=== PATIENT | female | born 1995 | race Caucasian/White ===

== ENCOUNTER 2017-10-16 23:47 | Emergency (ER) | payer OTHER ==
[2017-10-17] MEDS ORDERED: ONDANSETRON 4 MG/2 ML VIAL IVP STA (00:12)
[2017-10-17] MEDS ORDERED: MORPHINE 10 MG/ML VIAL IVP STA (00:12)
--- NOTE | 2017-10-17 00:21 | ED Physician Documentation ---
PD HPI ABD PAIN - Stated complaint Stated Complaint: ABDOMINAL PAIN - Chief complaint Chief Complaint: Abd Pain - History obtained from History obtained from: Patient, Friend - History of Present Illness Timing - onset: Today Timing - details: Gradual onset, Still present Quality: Cramping, Aching, Sharp Location: RLQ Worsened by: Position, Palpation Associated symptoms: Nausea. No: Fever, Vomiting, Diarrhea, Constipation, Vaginal bleeding, Vaginal dc Similar symptoms before: Work up / diagnostics, Treatment Recently seen: Not recently seen - Additional information Additional information: Patient is a 22 year old female with a history of ovarian cysts who is presenting to the emergency department for right lower quadrant pain. patient states that it started this morning and has become progressively worse throughout the day. Patient states that she has been nauseated and not eaten anything all day. Review of Systems Constitutional: denies: Fever, Chills Eyes: reports: Reviewed and negative Ears: reports: Reviewed and negative Nose: reports: Reviewed and negative Throat: reports: Reviewed and negative Cardiac: denies: Chest pain / pressure, Palpitations Respiratory: denies: Cough GI: reports: Abdominal Pain, Nausea. denies: Vomiting, Constipation, Diarrhea : denies: Dysuria, Frequency, Hematuria, Discharge, Vaginal bleeding Skin: denies: Rash, Lesions Musculoskeletal: denies: Back pain Neurologic: denies: Generalized weakness, Focal weakness Immunocompromised: denies: Immunocompromised PD PAST MEDICAL HISTORY - Past Medical History Past Medical History: No Cardiovascular: None Respiratory: None Neuro: None Endocrine/Autoimmune: None GI: None HOME HEALTH CARE RESPIRATORY THERAPIST: None : None HEENT: None Psych: None Musculoskeletal: None Derm: None - Past Surgical History Past Surgical History: Yes HEENT: Tonsil/Adenoidectomy - Present Medications Home Medications: Ambulatory Orders Medication Instructions Recorded Confirmed No Known Home Medications [No 10/16/17 10/16/17 Known Home Medications] - Allergies Allergies/Adverse Reactions: Allergies Allergy/AdvReac Type Severity Reaction Status Date / Time No Known Drug Allergies Allergy Verified 10/16/17 23:52 - Social History Does the pt smoke?: No Smoking Status: Never smoker Does the pt have substance abuse?: No - Immunizations Immunizations are current?: Yes PD ED PE NORMAL - General General: Well developed/nourished - HEENT HEENT: Atraumatic, PERRL - Neck Neck: Supple, no meningeal sign, No JVD - Cardiac Cardiac: RRR, No murmur - Respiratory Respiratory: No respiratory distress - Derm Derm: Normal color, Warm and dry, No rash - Extremities Extremities: No deformity, Normal ROM s pain, No edema, No calf tenderness / cord - Neuro Neuro: Alert and oriented X 3, No motor deficit, No sensory deficit, Normal speech PD ED PE EXPANDED - General General: Alert, In Pain - Abdomen Abdomen: Tender to palpation, RLQ. No: Rebound Results - Vitals Vitals: Vital Signs - 24 hr 10/16/17 10/17/17 10/17/17 23:53 00:37 00:42 Temperature 36.7 C Heart Rate 86 85 Respiratory 18 18 Rate Blood Pressure 139/97 H 122/88 H O2 Saturation 99 99 10/17/17 01:24 Temperature 36.7 C Heart Rate 82 Respiratory 24 Rate Blood Pressure 139/93 H O2 Saturation 99 Oxygen O2 Source Room air - Labs Labs: Laboratory Tests 10/17/17 10/17/17 10/17/17 00:01 00:05 00:05 WBC 11.1 H RBC 4.06 L Hgb 13.2 Hct 37.1 MCV 91.6 MCH 32.7 H MCHC 35.7 RDW 13.0 Plt Count 352 MPV 7.6 L Neut # 6.1 Lymph # 3.8 H [place] # 1.0 Eos # 0.1 Baso # 0.1 Absolute Nucleated RBC 0.00 Nucleated RBC % 0.0 Sodium 139 Potassium 3.6 Chloride 109 Carbon Dioxide 21 Anion Gap 9.0 BUN 11 Creatinine 0.8 Estimated GFR (MDRD) 90 Glucose 95 Calcium 9.1 Total Bilirubin 0.4 AST 25 ALT 20 Alkaline Phosphatase 75 Total Protein 7.1 Albumin 4.1 Globulin 3.0 Albumin/Globulin Ratio 1.4 Lipase 24 Urine Color LT. YELLOW Urine Clarity CLEAR Urine pH 7.0 Ur Specific [place] 1.010 Urine Protein NEGATIVE Urine Glucose (UA) NEGATIVE Urine Ketones NEGATIVE Urine Occult Blood NEGATIVE Urine Nitrite NEGATIVE Urine Bilirubin NEGATIVE Urine Urobilinogen 0.2 (NORMAL) Ur Leukocyte Esterase NEGATIVE Ur Microscopic Review NOT INDICATED Urine Culture Comments NOT INDICATED Urine HCG, Qual NEGATIVE - Rads (name of study) ct abdomen/pelvis Radiology: Final report received (no acute abdominal pathology) PD MEDICAL DECISION MAKING - ED course Complexity details: reviewed old records, reviewed results, re-evaluated patient , considered differential, d/w patient ED course: Patient was seen and examined at bedside. IV access was gained and labs and urine were collected. patient was treated with morphine and zofran. Due to the risk of appendicitis and ovarian torsion imaging was ordered. When patient returned from imaging she stated she was still in pain and treated with toradol with some relief. Patient's diagnostics were within normal limits. While serious etiologies like torsion and appendicitis were considered they were unlikely with negative imaging. Patient required no further work up and was stable for discharge with outpatient follow up. Departure - Departure Disposition: 01 Home, Self Care Clinical Impression: Abdominal pain Instructions: ED Abdominal Pain Unkn Cause Follow-Up: primary,care provider [Other] - Tomorrow Comments: Your diagnostics today were within normal limits. there were no major abnormalities with your blood, urine or imaging. It is difficult to say what is causing your pain exactly but it is unlikely life threatening in nature. You can take motrin or tylenol as needed for pain. If your symptoms persist you should follow up with your pmd and possibly a tablet technician. You may return to the emergency department at any time for new, worsening or uncontrollable symptoms. Forms: Activity restrictions
[2017-10-17 00:24] LABS: BILIRUBIN,URINE NEGATIVE (NEGATIVE); GLUCOSE, URINE (UA) NEGATIVE (NEGATIVE); KETONES,URINE (UA) NEGATIVE (NEGATIVE); LEUKOCYTE ESTERASE, URINE NEGATIVE (NEGATIVE); NITRITE,URINE NEGATIVE (NEGATIVE); OCCULT BLOOD,URINE NEGATIVE (NEGATIVE); PROTEIN,URINE NEGATIVE (NEGATIVE); UROBILINOGEN,URINE 0.2 (NORMAL) E.U./dL (NORMAL)
[2017-10-17 00:25] LABS: BASOPHILS # (AUTO) 0.1 10^3/uL (0.0-0.1); BASOPHILS % (AUTO) 0.6 %; EOSINOPHILS # (AUTO) 0.1 10^3/uL (0.0-0.7); EOSINOPHILS % (AUTO) 0.9 %; HGB - HEMOGLOBIN 13.2 g/dL (12.0-16.0); LYMPHOCYTES # (AUTO) 3.8 10^3/uL (1.5-3.5); LYMPHOCYTES % (AUTO) 34.6 %; MEAN CORPUSCULAR HEMOGLOBIN 32.7 pg (27.0-31.0); MEAN CORPUSCULAR HGB CONC 35.7 g/dL (32.0-36.0); MEAN CORPUSCULAR VOLUME 91.6 fL (81.0-99.0); MEAN PLATELET VOLUME 7.6 fL (7.9-10.8); MONOCYTES % (AUTO) 9.1 %; NEUTROPHILS # (AUTO) 6.1 10^3/uL (1.5-6.6); NEUTROPHILS % (AUTO) 54.8 %; PLT - PLATELET COUNT 352 10^3/uL (130-450); RED BLOOD COUNT 4.06 10^6/uL (4.20-5.40); WHITE BLOOD COUNT 11.1 x10^3/uL (4.8-10.8)
[2017-10-17 00:27] LABS: CLARITY,URINE CLEAR (CLEAR); HCG UR QUAL NEGATIVE
[2017-10-17 00:32] LABS: ALBUMIN 4.1 g/dL (3.2-5.5); ALBUMIN/GLOBULIN RATIO 1.4 (1.0-2.2); BILIRUBIN,TOTAL 0.4 mg/dL (0.2-1.0); CALCIUM 9.1 mg/dL (8.5-10.3); CREATININE 0.8 mg/dL (0.4-1.0); TOTAL PROTEIN 7.1 g/dL (6.7-8.2)
[2017-10-17] MEDS ORDERED: IOPAMIDOL-300 100 ML VIAL ONE (01:08)
[2017-10-17] MEDS ORDERED: IOPAMIDOL-300 100 ML VIAL IVP ONE (01:22)
[2017-10-17] MEDS ORDERED: KETOROLAC 60 MG/2 ML VIAL IVP STA (01:22)
[2017-10-17 01:24] VITALS: BP 139/93
--- NOTE | 2017-10-17 01:46 | CT Preliminary Report ---
Exam: CT ABDOMEN/PELVIS W/ IMPRESSION: Normal abdomen and pelvis CT. [facility] SITE ID: [id number]
--- NOTE | 2017-10-17 01:46 | CT Report ---
EXAM: CT ABDOMEN AND PELVIS EXAM DATE: 10/17/2017 01:25 AM. CLINICAL HISTORY: Rlq pain, nausea, anorexia. COMPARISONS: None. TECHNIQUE: Routine helical CT imaging was performed through the abdomen and pelvis. IV contrast: 100M L ISOVUE 300. Enteric contrast: No. Reconstructions: Coronal and sagittal. In accordance with CT protocol optimization, one or more of the following dose reduction techniques w ere utilized for this exam: automated exposure control, adjustment of mA and/or KV based on patient s ize, or use of iterative reconstructive technique. FINDINGS: Lung Bases: Unremarkable. Liver: Normal. No masses. Gallbladder/Bile Ducts: Unremarkable. Spleen: Normal. Pancreas: Normal. Adrenal Glands: Normal. Kidneys: Normal. No masses or hydronephrosis. Peritoneal Cavity/Bowel: Normal. No free fluid, free air or adenopathy. No masses or acute inflammato ry process. The appendix is well visualized and normal. Pelvic Organs: Normal. The bladder and visualized pelvic organs are within normal limits. Vasculature: No aneurysms or other significant abnormality. Bones: No significant abnormality. Other: None. IMPRESSION: Normal abdomen and pelvis CT. [facility] Referring Provider Line: [phone] SITE ID: [id number]
[2017-10-17] MEDS ORDERED: ACETAMINOPHEN 500 MG TABLET PO STA (02:01)
== END 2017-10-17 02:11 | disposition home or self-care (01) ==
LOC: ED 23:47
DX: R10.31 Right lower quadrant pain (principal)
CPT/HCPCS: 36415; 74177; 80053; 81003; 81025; 83690; 85025; 96374; 96375; 99283; 99285; A9270; Q9967; 81001; 87086

== ENCOUNTER 2017-12-18 08:35 | Emergency (ER) | payer OTHER ==
[2017-12-18 09:57] LABS: BILIRUBIN,URINE NEGATIVE (NEGATIVE); GLUCOSE, URINE (UA) NEGATIVE (NEGATIVE); KETONES,URINE (UA) NEGATIVE (NEGATIVE); LEUKOCYTE ESTERASE, URINE NEGATIVE (NEGATIVE); NITRITE,URINE NEGATIVE (NEGATIVE); OCCULT BLOOD,URINE TRACE-INTA (NEGATIVE); PROTEIN,URINE NEGATIVE (NEGATIVE); UROBILINOGEN,URINE 0.2 (NORMAL) E.U./dL (NORMAL)
[2017-12-18 09:59] LABS: CLARITY,URINE CLEAR (CLEAR)
[2017-12-18 10:00] LABS: HCG UR QUAL NEGATIVE
[2017-12-18] MEDS ORDERED: ONDANSETRON 4 MG/2 ML VIAL IVP STA ×2 (11:08→12:22)
[2017-12-18] MEDS ORDERED: SODIUM CHLORIDE 0.9% 1,000 ML IV ONE (11:08)
[2017-12-18] MEDS ORDERED: KETOROLAC 60 MG/2 ML VIAL IVP STA (11:08)
--- NOTE | 2017-12-18 11:10 | ED Physician Documentation ---
PD HPI ABD PAIN - Stated complaint Stated Complaint: LOWER ABD PX - Chief complaint Chief Complaint: Abd Pain - History obtained from History obtained from: Patient - History of Present Illness Timing - onset: Yesterday Timing - duration: Days (1) Timing - details: Gradual onset, Still present Quality: Sharp, Pain Location: RLQ Radiation: No: Chest, Right flank Improved by: Laying still Worsened by: Moving, Position, Palpation Associated symptoms: Nausea, Loss of appetite Similar symptoms before: Diagnosis (ovarian cyst) Recently seen: Clinic - Additional information Additional information: 22-year-old female has had some pain in the right lower quadrant that started about 1 week ago was much milder then today and she went into see her SUPERVISOR DIAGNO[employer] and had an ultrasound of the pelvis done showing a follicular cyst. She had been able to eat and was performing her usual duties was not bothering her to stop her from doing anything and then yesterday the pain became much worse. She was not able to eat yesterday at all does not feel like eating today and the pain is localized to the right lower quadrant. Review of Systems Constitutional: reports: Chills. denies: Fever Eyes: denies: Decreased vision Ears: denies: Ear pain Nose: denies: Congestion Throat: denies: Sore throat Cardiac: denies: Chest pain / pressure, Palpitations Respiratory: denies: Dyspnea, Cough GI: reports: Abdominal Pain, Nausea. denies: Vomiting, Constipation, Diarrhea : denies: Dysuria, Frequency Skin: denies: Rash Musculoskeletal: denies: Neck pain, Back pain, Extremity pain Neurologic: denies: Generalized weakness, Focal weakness PD PAST MEDICAL HISTORY - Past Medical History Past Medical History: Yes Cardiovascular: None Respiratory: None Neuro: None Endocrine/Autoimmune: None GI: None SUPERVISOR DIAGNOSTIC: None : None HEENT: None Psych: None Musculoskeletal: None Derm: None - Past Surgical History Past Surgical History: Yes HEENT: Tonsil/Adenoidectomy - Present Medications Home Medications: Ambulatory Orders Medication Instructions Recorded Confirmed HYDROcod/ACETAM 5/325 [[place] 5/325] 1 - 2 ea PO Q6H PRN #15 tablet 12/18/17 Levonorgestrel-Ethin Estradiol 12/18/17 [Orsythia-28 Tablet] - Allergies Allergies/Adverse Reactions: Allergies Allergy/AdvReac Type Severity Reaction Status Date / Time No Known Drug Allergies Allergy Verified 12/18/17 08:58 - Social History Does the pt smoke?: No Smoking Status: Never smoker Does the pt have substance abuse?: No - Immunizations Immunizations are current?: Yes PD ED PE NORMAL - Vitals Vital signs reviewed: Yes (Normal) - General General: Alert and oriented X 3, Well developed/nourished, Other (The patient appears to be in pain with automatic bow maker machine tender tone and flattened affect.) - HEENT HEENT: Atraumatic, PERRL, EOMI - Neck Neck: Supple, no meningeal sign - Cardiac Cardiac: RRR, No murmur - Respiratory Respiratory: No respiratory distress, Clear bilaterally - Abdomen Abdomen: Soft, Other (Specific right lower quadrant tenderness mostly over the suprapubic portion without rebound tenderness) - Back Back: No CVA TTP, No spinal TTP - Derm Derm: Normal color, Warm and dry, No rash - Extremities Extremities: No deformity, No edema - Neuro Neuro: No motor deficit, No sensory deficit Eye Opening: Spontaneous Motor: Obeys Commands Verbal: Oriented GCS Score: 15 - Psych Psych: Normal mood, Normal affect Results - Vitals Vitals: Vital Signs - 24 hr 12/18/17 12/18/17 12/18/17 08:54 11:55 12:15 Temperature 36.7 C 36.4 C L Heart Rate 86 74 79 Respiratory 18 17 18 Rate Blood Pressure 116/79 107/68 107/84 H O2 Saturation 99 100 100 Oxygen O2 Source Room air - Labs Labs: Laboratory Tests 12/18/17 12/18/17 12/18/17 09:25 11:18 11:18 WBC 8.9 RBC 4.36 Hgb 13.9 Hct 40.1 MCV 92.0 MCH 32.0 H MCHC 34.8 RDW 13.0 Plt Count 328 MPV 7.2 L Neut # 6.5 Lymph # 1.8 [place] # 0.5 Eos # 0.1 Baso # 0.1 Absolute Nucleated RBC 0.00 Nucleated RBC % 0.0 Sodium 136 Potassium 3.8 Chloride 104 Carbon Dioxide 23 Anion Gap 9.0 BUN 9 Creatinine 0.8 Estimated GFR (MDRD) 90 Glucose 89 Calcium 9.2 Total Bilirubin 0.7 AST 28 ALT 32 Alkaline Phosphatase 47 Total Protein 7.3 Albumin 3.9 Globulin 3.4 Albumin/Globulin Ratio 1.1 Lipase 22 Urine Color YELLOW Urine Clarity CLEAR Urine pH 6.0 Ur Specific [place] 1.025 Urine Protein NEGATIVE Urine Glucose (UA) NEGATIVE Urine Ketones NEGATIVE Urine Occult Blood TRACE-INTA Urine Nitrite NEGATIVE Urine Bilirubin NEGATIVE Urine Urobilinogen 0.2 (NORMAL) Ur Leukocyte Esterase NEGATIVE Ur Microscopic Review NOT INDICATED Urine Culture Comments NOT INDICATED Urine HCG, Qual NEGATIVE - Rads (name of study) CT ab/pel Radiology: Prelim report reviewed (Impression: There are no CT findings to suggest cause of symptoms), EMP read indepedently, See rad report Ultrasound pelvis Radiology: Prelim report reviewed (Impression: Normal no torsion.), EMP read indepedently, See rad report Procedures - Bedside sono Bedside sono by EMP: These bedside ultrasound the right kidney is imaged there is no evidence of hydronephrosis and the kidney is sonographically nontender. PD MEDICAL DECISION MAKING - ED course Complexity details: reviewed results, re-evaluated patient, considered differential, d/w patient ED course: 22-year-old female with right lower quadrant pain acutely has had this pain previously and she has had prior evaluations similar to today. She required CT scan of the abdomen pelvis to rule out appendicitis and ultrasound to rule out torsion. This is a second workup here in the emergency department under similar conditions. Her [employer]PER[employer] doctor is concerned about the possibility of endometriosis and this seems the most likely explanation for this patient's pain. I will provide the patient with a limited amount of pain medication and she will follow-up with her [employer] doctor. Departure - Departure Disposition: 01 Home, Self Care Clinical Impression: Pelvic pain Condition: Stable Instructions: ED Pelvic Pain [facility] Follow-Up: [facility] [place] [facility] [Provider Group] Prescriptions: HYDROcod/ACETAM 5/325 [[place] 5/325] 1 - 2 ea PO Q6H PRN #15 tablet PRN Reason: Pain Comments: Today we did not find an etiology for your pelvic pain. I suspect as her [employer] doctor does that this may have to do with endometriosis. We have provided a small amount of pain medication. Take it as needed and follow-up with your [employer]PER[employer] doctor.
[2017-12-18 11:26] LABS: BASOPHILS # (AUTO) 0.1 10^3/uL (0.0-0.1); BASOPHILS % (AUTO) 0.7 %; EOSINOPHILS # (AUTO) 0.1 10^3/uL (0.0-0.7); EOSINOPHILS % (AUTO) 0.7 %; HGB - HEMOGLOBIN 13.9 g/dL (12.0-16.0); LYMPHOCYTES # (AUTO) 1.8 10^3/uL (1.5-3.5); LYMPHOCYTES % (AUTO) 20.3 %; MEAN CORPUSCULAR HGB CONC 34.8 g/dL (32.0-36.0); MEAN PLATELET VOLUME 7.2 fL (7.9-10.8); MONOCYTES # (AUTO) 0.5 10^3/uL (0.0-1.0); MONOCYTES % (AUTO) 5.3 %; NEUTROPHILS # (AUTO) 6.5 10^3/uL (1.5-6.6); PLT - PLATELET COUNT 328 10^3/uL (130-450); RED BLOOD COUNT 4.36 10^6/uL (4.20-5.40); WHITE BLOOD COUNT 8.9 x10^3/uL (4.8-10.8)
[2017-12-18 11:43] LABS: ALBUMIN 3.9 g/dL (3.2-5.5); ALBUMIN/GLOBULIN RATIO 1.1 (1.0-2.2); BILIRUBIN,TOTAL 0.7 mg/dL (0.2-1.0); CALCIUM 9.2 mg/dL (8.5-10.3); CREATININE 0.8 mg/dL (0.4-1.0); TOTAL PROTEIN 7.3 g/dL (6.7-8.2)
--- NOTE | 2017-12-18 11:52 | CT Report ---
EXAM: CT ABDOMEN AND PELVIS EXAM DATE: 12/18/2017 11:26 AM. CLINICAL HISTORY: RLQ pain. COMPARISONS: Abdomen pelvis CT 10/17/2017. TECHNIQUE: Routine helical CT imaging was performed through the abdomen and pelvis. IV contrast: None . Enteric contrast: No. Reconstructions: Coronal and sagittal. In accordance with CT protocol optimization, one or more of the following dose reduction techniques w ere utilized for this exam: automated exposure control, adjustment of mA and/or KV based on patient s ize, or use of iterative reconstructive technique. FINDINGS: Lung Bases: Unremarkable. Liver: Normal contour. No masses. Gallbladder/Bile Ducts: Unremarkable. Spleen: Normal. Pancreas: Normal. Adrenal Glands: Normal. Kidneys: no masses or hydronephrosis. Peritoneal Cavity/Bowel: Normal. No free fluid, free air or adenopathy. No masses or acute inflammato ry process. The appendix is well visualized and has a normal CT appearance. Pelvic Organs: the bladder and visualized pelvic organs are unremarkable. Vasculature: No aneurysms or other significant abnormality. Bones: No bone lesions. IMPRESSION: There are no CT findings to suggest a cause of symptoms [facility] Referring Provider Line: [phone] SITE ID: [id number]
[2017-12-18] MEDS ORDERED: HYDROmorphone 1 MG/ML SYRINGE IVP STA (12:22)
[2017-12-18 13:44] VITALS: BP 112/84
--- NOTE | 2017-12-19 11:34 | Ultrasound Report ---
PELVIC ULTRASOUND: 12/18/2017 CLINICAL INDICATION: Severe right-sided pain. TECHNIQUE: Transabdominal pelvic ultrasound performed for global evaluation. Transvaginal pelvic ultrasound performed for detailed evaluation. Real-time sonographic vascular imaging was performed by the instruction assistant principal through the pelvis utilizing both color-flow and Doppler spectral analysis. Multiple wholesale representative static images were saved for review. FINDINGS: The uterus is anteverted, measuring 6.8 x 4.9 x 2.9 cm. The endometrial echo complex measures 6 mm. No focal myometrial lesion is seen. The ovaries are normal, with the right measuring 2.7 x 1.9 x 1.7 cm and the left measuring 2.6 x 1.6 x 1.6 cm. Normal ovarian flow was present bilaterally. No free fluid is present. IMPRESSION: NORMAL PELVIC ULTRASOUND. TD: 12/18/2017 15:57
== END 2017-12-18 13:45 | disposition home or self-care (01) ==
LOC: ED 08:35
DX: R10.2 Pelvic and perineal pain (principal)
CPT/HCPCS: 36415; 74176; 76830; 76856; 80053; 81003; 81025; 83690; 85025; 93976; 96361; 96374; 96375; 96376; 99283; 99284; J1170; 81001; 87086

== ENCOUNTER 2017-12-25 21:46 | Emergency (ER) | payer OTHER ==
--- NOTE | 2017-12-26 00:12 | ED Physician Documentation ---
PD HPI ABD PAIN - Stated complaint Stated Complaint: LOWER RT ABD PAIN - Chief complaint Chief Complaint: Abd Pain - History obtained from History obtained from: Patient - History of Present Illness Timing - onset: How many weeks ago (2) Timing - details: Abrupt onset, Intermittant, Waxing and waning Pain level now: 6 Quality: Pain Location: Suprapubic, Other (right pelvis) Radiation: No: Chest, , Lower back, Left flank, Left shoulder, Right flank, Right shoulder, Upper back Improved by: Other (no ameliorating factors) Worsened by: Palpation Associated symptoms: No: Fever, Nausea, Vomiting Similar symptoms before: No diagnosis Recently seen: Emergency Dept - Additional information Additional information: c/o recurring right pelvic pain. moved to [place] in August. she was T+R from this ED 10/16 for same sx, unremarkable w/u including CT A/P, returned 12/18 for same, had unremarkable pelvic US. followed up at [facility], states suspected diagnosis is endometriosis and had shot of Lupron, returns to this ED for recurrent right pelvic pain. she has run out of the hydrocodone rx from [facility] visit earlier this month Review of Systems Constitutional: reports: Reviewed and negative Cardiac: reports: Reviewed and negative Respiratory: reports: Reviewed and negative GI: reports: Abdominal Pain. denies: Nausea, Vomiting : denies: Dysuria, Frequency PD PAST MEDICAL HISTORY - Past Medical History Past Medical History: Yes Cardiovascular: None Respiratory: None Neuro: None Endocrine/Autoimmune: None GI: None X RAY DEVELOPER: Endometriosis : None HEENT: None Psych: None Musculoskeletal: None Derm: None - Past Surgical History Past Surgical History: Yes HEENT: Tonsil/Adenoidectomy - Present Medications Home Medications: Ambulatory Orders Medication Instructions Recorded Confirmed HYDROcod/ACETAM 5/325 [[place] 5/325] 1 - 2 ea PO Q6H PRN #15 tablet 12/18/17 Levonorgestrel-Ethin Estradiol 12/18/17 [Orsythia-28 Tablet] Hydrocodone/Acetaminophen 1 - 2 each PO Q6HR PRN #14 tablet 12/26/17 [Hydrocodon-Acetaminophen 5-325] - Allergies Allergies/Adverse Reactions: Allergies Allergy/AdvReac Type Severity Reaction Status Date / Time No Known Drug Allergies Allergy Verified 12/25/17 22:08 - Social History Does the pt smoke?: No Smoking Status: Never smoker Does the pt have substance abuse?: No - Immunizations Immunizations are current?: Yes PD ED PE NORMAL - Vitals Vital signs reviewed: Yes - General General: Alert and oriented X 3, No acute distress, Well developed/nourished - Cardiac Cardiac: RRR, No murmur - Respiratory Respiratory: No respiratory distress, Clear bilaterally - Abdomen Abdomen: Soft, Non tender, Non distended - Back Back: No CVA TTP Results - Vitals Vitals: Oxygen O2 Source Room air PD MEDICAL DECISION MAKING - ED course Complexity details: reviewed results, re-evaluated patient, considered differential, d/w patient Departure - Departure Disposition: Home, Self Care Clinical Impression: Pelvic pain Condition: Good Instructions: ED Pelvic Pain [facility] Follow-Up: [facility] [Provider Group] (Call to arrange for next available appointment) Prescriptions: Hydrocodone/Acetaminophen [Hydrocodon-Acetaminophen 5-325] 1 - 2 each PO Q6HR PRN #14 tablet PRN Reason: Pain Discharge Date/Time: 12/26/17 01:20
[2017-12-26] MEDS ORDERED: HYDROcod/ACET 5/325 Prepack 6 PO STA (01:05)
[2017-12-26 01:29] VITALS: BP 117/78
== END 2017-12-26 01:20 | disposition home or self-care (01) ==
LOC: ED 21:46
DX: R10.2 Pelvic and perineal pain (principal)
CPT/HCPCS: 99283

== ENCOUNTER 2018-01-21 20:48 | Emergency (ER) | payer OTHER ==
[2018-01-21 21:52] LABS: BASOPHILS # (AUTO) 0.1 10^3/uL (0.0-0.1); BASOPHILS % (AUTO) 0.6 %; EOSINOPHILS # (AUTO) 0.1 10^3/uL (0.0-0.7); EOSINOPHILS % (AUTO) 0.9 %; HGB - HEMOGLOBIN 13.6 g/dL (12.0-16.0); LYMPHOCYTES # (AUTO) 3.4 10^3/uL (1.5-3.5); LYMPHOCYTES % (AUTO) 28.9 %; MEAN CORPUSCULAR HEMOGLOBIN 31.3 pg (27.0-31.0); MEAN CORPUSCULAR HGB CONC 34.3 g/dL (32.0-36.0); MEAN CORPUSCULAR VOLUME 91.3 fL (81.0-99.0); MEAN PLATELET VOLUME 6.9 fL (7.9-10.8); MONOCYTES % (AUTO) 8.2 %; NEUTROPHILS # (AUTO) 7.2 10^3/uL (1.5-6.6); NEUTROPHILS % (AUTO) 61.4 %; PLT - PLATELET COUNT 386 10^3/uL (130-450); RED BLOOD COUNT 4.34 10^6/uL (4.20-5.40); RED CELL DISTRIBUTION WIDTH 12.8 % (12.0-15.0); WHITE BLOOD COUNT 11.7 x10^3/uL (4.8-10.8)
[2018-01-21 22:07] LABS: BILIRUBIN,URINE NEGATIVE (NEGATIVE); CLARITY,URINE CLEAR (CLEAR); GLUCOSE, URINE (UA) NEGATIVE (NEGATIVE); KETONES,URINE (UA) NEGATIVE (NEGATIVE); LEUKOCYTE ESTERASE, URINE NEGATIVE (NEGATIVE); NITRITE,URINE NEGATIVE (NEGATIVE); OCCULT BLOOD,URINE NEGATIVE (NEGATIVE); PROTEIN,URINE NEGATIVE (NEGATIVE); UROBILINOGEN,URINE 0.2 (NORMAL) E.U./dL (NORMAL)
[2018-01-21 22:10] LABS: HCG UR QUAL NEGATIVE
[2018-01-21 22:11] LABS: ALBUMIN 3.9 g/dL (3.2-5.5); ALBUMIN/GLOBULIN RATIO 1.1 (1.0-2.2); BILIRUBIN,TOTAL 0.2 mg/dL (0.2-1.0); CREATININE 0.7 mg/dL (0.4-1.0); TOTAL PROTEIN 7.5 g/dL (6.7-8.2)
--- NOTE | 2018-01-22 00:15 | ED Physician Documentation ---
PD HPI ABD PAIN - Stated complaint Stated Complaint: ABD PX - Chief complaint Chief Complaint: Abd Pain - History obtained from History obtained from: Patient - History of Present Illness Timing - onset: Enter time (16:00), Today Timing - duration: Hours Timing - details: Abrupt onset Pain level now: 6 Quality: Pain Location: RLQ Radiation: No: Chest, , Lower back, Left flank, Left shoulder, Right flank, Right shoulder, Upper back Improved by: Laying still Worsened by: Moving, Palpation Associated symptoms: Nausea. No: Fever, Vomiting Recently seen: Emergency Dept - Additional information Additional information: patient complains of right lower quadrant abdominal and pelvic pain that began at 4 PM tonight while at rest at home watching TV. She has had similar pains episodically over the past few months for which she has been evaluated several times in this emergency department as well as [facility] emergency department. Despite extensive work up, no specific diagnosis has been found. She has been seen by cam maker in the outpatient setting, most recently on January 18. At that time she was given her second injection of Lupron, with a suspected diagnosis being endometriosis. Patient says that if her pain continues the plan is to proceed with laparoscopy. Patient says she has no pain medication at home at this time. Review of Systems Constitutional: reports: Reviewed and negative Cardiac: reports: Reviewed and negative Respiratory: reports: Reviewed and negative GI: reports: Abdominal Pain, Nausea. 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 : None HEENT: None Psych: None Musculoskeletal: None Derm: None - Past Surgical History Past Surgical History: Yes HEENT: Tonsil/Adenoidectomy - Present Medications Home Medications: Ambulatory Orders Medication Instructions Recorded Confirmed Levonorgestrel-Ethin Estradiol 12/18/17 [Orsythia-28 Tablet] Hydrocodone/Acetaminophen 1 - 2 each PO Q6HR PRN #14 tablet 01/22/18 [Hydrocodone-Acetamin 5-325 mg] - Allergies Allergies/Adverse Reactions: Allergies Allergy/AdvReac Type Severity Reaction Status Date / Time No Known Drug Allergies Allergy Verified 01/21/18 21:02 - Social History Does the pt smoke?: No Smoking Status: Never smoker Does the pt have substance abuse?: No - Immunizations Immunizations are current?: Yes PD ED PE NORMAL - Vitals Vital signs reviewed: Yes - General General: Alert and oriented X 3, No acute distress, Well developed/nourished - Cardiac Cardiac: RRR, No murmur - Respiratory Respiratory: No respiratory distress, Clear bilaterally - Abdomen Abdomen: Soft, Non distended - Back Back: No CVA TTP PD ED PE EXPANDED - Abdomen Abdomen: Tender to palpation, RLQ. No: Rebound, Guarding Results - Vitals Vitals: Vital Signs - 24 hr 01/21/18 01/22/18 20:59 01:08 Temperature 36.8 C Heart Rate 99 66 Respiratory 18 18 Rate Blood Pressure 129/85 H 123/67 O2 Saturation 99 95 Oxygen O2 Source Room air - Labs Labs: Laboratory Tests 01/21/18 01/21/18 01/21/18 21:03 21:03 21:49 WBC 11.7 H RBC 4.34 Hgb 13.6 Hct 39.6 MCV 91.3 MCH 31.3 H MCHC 34.3 RDW 12.8 Plt Count 386 MPV 6.9 L Neut # 7.2 H Lymph # 3.4 [place] # 1.0 Eos # 0.1 Baso # 0.1 Absolute Nucleated RBC 0.00 Nucleated RBC % 0.0 Sodium Potassium Chloride Carbon Dioxide Anion Gap BUN Creatinine Estimated GFR (MDRD) Glucose Calcium Total Bilirubin AST ALT Alkaline Phosphatase Total Protein Albumin Globulin Albumin/Globulin Ratio Lipase Urine Color LT. YELLOW Urine Clarity CLEAR Urine pH 6.0 Ur Specific [place] <=1.005 <=1.005 Urine Protein NEGATIVE Urine Glucose (UA) NEGATIVE Urine Ketones NEGATIVE Urine Occult Blood NEGATIVE Urine Nitrite NEGATIVE Urine Bilirubin NEGATIVE Urine Urobilinogen 0.2 (NORMAL) Ur Leukocyte Esterase NEGATIVE Ur Microscopic Review NOT INDICATED Urine Culture Comments NOT INDICATED Urine HCG, Qual NEGATIVE 01/21/18 21:49 WBC RBC Hgb Hct MCV MCH MCHC RDW Plt Count MPV Neut # Lymph # [place] # Eos # Baso # Absolute Nucleated RBC Nucleated RBC % Sodium 135 Potassium 3.7 Chloride 102 Carbon Dioxide 25 Anion Gap 8.0 BUN 11 Creatinine 0.7 Estimated GFR (MDRD) 105 Glucose 106 H Calcium 9.0 Total Bilirubin 0.2 AST 21 ALT 23 Alkaline Phosphatase 61 Total Protein 7.5 Albumin 3.9 Globulin 3.6 Albumin/Globulin Ratio 1.1 Lipase 22 Urine Color Urine Clarity Urine pH Ur Specific [place] Urine Protein Urine Glucose (UA) Urine Ketones Urine Occult Blood Urine Nitrite Urine Bilirubin Urine Urobilinogen Ur Leukocyte Esterase Ur Microscopic Review Urine Culture Comments Urine HCG, Qual PD MEDICAL DECISION MAKING - ED course Complexity details: reviewed old records, reviewed results, re-evaluated patient , considered differential, d/w patient ED course: unremarkable blood test results tonight. Given similar nature of presentation to multiple previous recent ED visits, which involved at least two pelvic ultrasounds and at least two CT scans of abdomen and pelvis, which yielded unremarkable results, I do not believe repeat imaging would be necessary nor beneficial at this time. instructed to contact her cam maker to arrange follow up and encouraged to return if worse Departure - Departure Disposition: 01 Home, Self Care Clinical Impression: Pelvic pain Condition: Good Instructions: NARCOTIC, Oral, ED Pelvic Pain UKO Follow-Up: RAFI Sutton [Provider Group] Prescriptions: Hydrocodone/Acetaminophen [Hydrocodone-Acetamin 5-325 mg] 1 - 2 each PO Q6HR PRN #14 tablet PRN Reason: Pain Discharge Date/Time: 01/22/18 01:08
[2018-01-22] MEDS ORDERED: KETOROLAC 60 MG/2 ML VIAL IVP STA (00:49)
[2018-01-22] MEDS ORDERED: HYDROcod/ACET 5/325 Prepack 4 PO STA (00:49)
[2018-01-22] MEDS ORDERED: ONDANSETRON ODT 4 MG TABLET TL STA (00:59)
[2018-01-22 01:09] VITALS: BP 123/67
== END 2018-01-22 01:08 | disposition home or self-care (01) ==
LOC: ED 20:48
DX: R10.2 Pelvic and perineal pain (principal); R10.31 Right lower quadrant pain; R11.0 Nausea
CPT/HCPCS: 36415; 80053; 81003; 81025; 83690; 85025; 96374; 99283; Q0162; 81001; 87086

== ENCOUNTER 2018-04-14 20:29 | Emergency (ER) | payer OTHER ==
[2018-04-14 20:59] LABS: BASOPHILS # (AUTO) 0.1 10^3/uL (0.0-0.1); BASOPHILS % (AUTO) 0.8 %; EOSINOPHILS # (AUTO) 0.1 10^3/uL (0.0-0.7); EOSINOPHILS % (AUTO) 1.4 %; HGB - HEMOGLOBIN 14.3 g/dL (12.0-16.0); LYMPHOCYTES # (AUTO) 3.2 10^3/uL (1.5-3.5); LYMPHOCYTES % (AUTO) 36.8 %; MEAN CORPUSCULAR HEMOGLOBIN 32.7 pg (27.0-31.0); MEAN CORPUSCULAR HGB CONC 35.3 g/dL (32.0-36.0); MEAN CORPUSCULAR VOLUME 92.7 fL (81.0-99.0); MEAN PLATELET VOLUME 7.1 fL (7.9-10.8); MONOCYTES # (AUTO) 0.8 10^3/uL (0.0-1.0); MONOCYTES % (AUTO) 8.7 %; NEUTROPHILS # (AUTO) 4.6 10^3/uL (1.5-6.6); NEUTROPHILS % (AUTO) 52.3 %; PLT - PLATELET COUNT 353 10^3/uL (130-450); RED BLOOD COUNT 4.36 10^6/uL (4.20-5.40); WHITE BLOOD COUNT 8.8 x10^3/uL (4.8-10.8)
[2018-04-14 21:02] LABS: BILIRUBIN,URINE NEGATIVE (NEGATIVE); GLUCOSE, URINE (UA) NEGATIVE (NEGATIVE); KETONES,URINE (UA) NEGATIVE (NEGATIVE); LEUKOCYTE ESTERASE, URINE NEGATIVE (NEGATIVE); NITRITE,URINE NEGATIVE (NEGATIVE); OCCULT BLOOD,URINE MODERATE (NEGATIVE); PROTEIN,URINE NEGATIVE (NEGATIVE); UROBILINOGEN,URINE 0.2 (NORMAL) E.U./dL (NORMAL)
[2018-04-14 21:08] LABS: CLARITY,URINE HAZY (CLEAR); HCG UR QUAL NEGATIVE
[2018-04-14 21:11] LABS: ALBUMIN 3.9 g/dL (3.2-5.5); BILIRUBIN,TOTAL 0.5 mg/dL (0.2-1.0); CALCIUM 9.3 mg/dL (8.5-10.3); CREATININE 0.8 mg/dL (0.4-1.0); TOTAL PROTEIN 7.8 g/dL (6.7-8.2)
[2018-04-14 21:15] LABS: BACTERIA,URINE None Seen /HPF (None Seen); SQUAMOUS EPITHELIAL CELL,UR MOD Squamous (<= Few)
[2018-04-14] MEDS ORDERED: DEXAMETHASONE 10 MG/ML VIAL PO STA (21:15)
[2018-04-14] MEDS ORDERED: KETOROLAC 60 MG/2 ML VIAL IVP STA (21:15)
[2018-04-14] MEDS ORDERED: LIDOCAINE PATCH 5% TOP STA (21:15)
[2018-04-14] MEDS ORDERED: CYCLOBENZAPRINE 10 MG TABLET PO STA (21:15)
[2018-04-14] MEDS ORDERED: KETOROLAC 60 MG/2 ML VIAL IM STA (21:19)
--- NOTE | 2018-04-14 21:19 | ED Physician Documentation ---
PD HPI BACK PAIN - Stated complaint Stated Complaint: R ABD PX/R LEG NUMBNESS - Chief complaint Chief Complaint: Abd Pain - History obtained from History obtained from: Patient - History of Present Illness Timing - onset: Today Timing - details: Gradual onset, Still present Location: Lower, Right Quality: Pain, Spasm Associated symptoms: Weakness, Numbness Worsened by: Movement Contributing factors: Lifting Similar symptoms before: Has not had sx before Recently seen: Not recently seen - Additional information Additional information: Patient is a 22 year old female with no significant past medical history who is presenting to the emergency department for back pain that radiates down her right leg, and numbness in that leg. patient states that she was sitting in her car when the symptoms started about 2 hours ago. patient denies any trauma , or loss of bowel or bladder function. 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 : None HEENT: None Psych: None Musculoskeletal: None Derm: None - Past Surgical History Past Surgical History: Yes HEENT: Tonsil/Adenoidectomy - Present Medications Home Medications: Ambulatory Orders Medication Instructions Recorded Confirmed Cyclobenzaprine [Flexeril] 10 mg PO TID PRN #10 tablet 04/14/18 Lidocaine Patch 5% [Lidoderm Patch] 1 each TOP DAILY #14 patch 04/14/18 - Allergies Allergies/Adverse Reactions: Allergies Allergy/AdvReac Type Severity Reaction Status Date / Time No Known Drug Allergies Allergy Verified 04/14/18 20:43 - Social History Does the pt smoke?: No Smoking Status: Never smoker Does the pt have substance abuse?: No - Immunizations Immunizations are current?: Yes PD ED PE NORMAL - Vitals Vital signs reviewed: Yes - General General: Alert and oriented X 3, No acute distress - HEENT HEENT: Atraumatic - Neck Neck: Supple, no meningeal sign - Cardiac Cardiac: RRR - Respiratory Respiratory: No respiratory distress - Abdomen Abdomen: Soft, Non tender, Non distended - Derm Derm: Normal color, Warm and dry, No rash PD ED PE EXPANDED - Back Back visual: 1 - tenderness (tenderness over right SI region) - Neuro Neuro: Weakness (Patient reports that the right leg feels week but patient is able to lift it against gravity), Other (no saddle parasthesia ) Results - Vitals Vitals: Vital Signs - 24 hr 04/14/18 20:37 Temperature 36.9 C Heart Rate 95 Respiratory 18 Rate Blood Pressure 113/77 O2 Saturation 98 Oxygen O2 Source Room air - Labs Labs: Laboratory Tests 04/14/18 04/14/18 04/14/18 20:50 20:54 20:54 WBC 8.8 RBC 4.36 Hgb 14.3 Hct 40.5 MCV 92.7 MCH 32.7 H MCHC 35.3 RDW 13.0 Plt Count 353 MPV 7.1 L Neut # (Auto) 4.6 Lymph # (Auto) 3.2 [place] # (Auto) 0.8 Eos # (Auto) 0.1 Baso # (Auto) 0.1 Absolute Nucleated RBC 0.01 Nucleated RBC % 0.1 Sodium 135 Potassium 3.7 Chloride 99 L Carbon Dioxide 26 Anion Gap 10.0 BUN 14 Creatinine 0.8 Estimated GFR (MDRD) 90 Glucose 108 H Calcium 9.3 Total Bilirubin 0.5 AST 27 ALT 41 Alkaline Phosphatase 79 Total Protein 7.8 Albumin 3.9 Globulin 3.9 Albumin/Globulin Ratio 1.0 Lipase 26 Urine Color YELLOW Urine Clarity HAZY Urine pH 6.0 Ur Specific [place] 1.025 Urine Protein NEGATIVE Urine Glucose (UA) NEGATIVE Urine Ketones NEGATIVE Urine Occult Blood MODERATE H Urine Nitrite NEGATIVE Urine Bilirubin NEGATIVE Urine Urobilinogen 0.2 (NORMAL) Ur Leukocyte Esterase NEGATIVE Urine RBC 6-10 H Urine WBC 0-3 Ur Squamous Epith Cells MOD Squamous H Urine Bacteria None Seen Ur Microscopic Review INDICATED Urine Culture Comments NOT INDICATED Urine HCG, Qual NEGATIVE PD MEDICAL DECISION MAKING - ED course Complexity details: reviewed old records, reviewed results, re-evaluated patient , considered differential, d/w patient ED course: Patient was seen and examined at bedside. patient was well appearing and in distress. patient stated that she could not move her leg, but she was able to lift it against gravity. patient was vascularly intact. Patient had point tenderness lateral to her spine. there was no rash, or gross deformity. Vital signs were within normal limits. Patient was treated with toradol, decadron flexeril and a lidoderm patch. Patient required no further work up at this time and was stable for discharge with outpatient follow up. - Sepsis Event Vital Signs: Vital Signs - 24 hr 04/14/18 20:37 Temperature 36.9 C Heart Rate 95 Respiratory 18 Rate Blood Pressure 113/77 O2 Saturation 98 Oxygen O2 Source Room air Departure - Departure Disposition: 01 Home, Self Care Clinical Impression: Sciatica Condition: Good Instructions: ED Sciatica, ED Spasm Back No Trauma Follow-Up: DEVIN GALLAGHER III, MD [Primary Care Provider] - Prescriptions: Cyclobenzaprine [Flexeril] 10 mg PO TID PRN #10 tablet PRN Reason: Spasms Lidocaine Patch 5% [Lidoderm Patch] 1 each TOP DAILY #14 patch Comments: Your symptoms today are being caused by muscle spams compressing on your peripheral nerve. You were treated with a steroid, and anti inflammatory and a muscle relaxer. You will need to also stretch that region of your back by bringing your knee across you chest. You can try ice or heat. if your symptoms are not improving in the next 2-3 days you should follow up with your doctor. You should return to the emergency department for loss of bowel or bladder function, new, worsening or uncontrollable symptoms.
[2018-04-14 23:29] VITALS: BP 124/75
== END 2018-04-14 22:10 | disposition home or self-care (01) ==
LOC: ED 20:29
DX: M54.31 Sciatica, right side (principal)
CPT/HCPCS: 36415; 80053; 81001; 81025; 83690; 85025; 96372; 99283; A9270; 81003; 87086

== ENCOUNTER 2018-05-29 15:27 | Emergency (ER) | payer OTHER ==
[2018-05-29] MEDS ORDERED: ONDANSETRON 4 MG/2 ML VIAL IVP STA ×2 (15:36→18:08)
[2018-05-29] MEDS ORDERED: MORPHINE 10 MG/ML VIAL IVP STA (15:36)
--- NOTE | 2018-05-29 15:39 | ED Physician Documentation ---
PD HPI ABD PAIN - Stated complaint Stated Complaint: ABD PX - Chief complaint Chief Complaint: Abd Pain - History obtained from History obtained from: Patient - History of Present Illness Timing - onset: Today (22-year-old woman with gradual and worsening right lower quadrant pain today associated with several episodes of vomiting. She has had endometriosis in the past status post laparoscopic surgery, she had a period last week and just prior to that had a ruptured ovarian cyst per her diagnosed by ultrasound at another facility.) Review of Systems Constitutional: reports: Sweats. denies: Fever, Chills Cardiac: denies: Chest pain / pressure, Palpitations Respiratory: denies: Dyspnea, Cough GI: reports: Abdominal Pain, Nausea, Vomiting. 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 : None HEENT: None Psych: None Musculoskeletal: None Derm: None - Past Surgical History Past Surgical History: Yes HEENT: Tonsil/Adenoidectomy - Present Medications Home Medications: Ambulatory Orders Medication Instructions Recorded Confirmed Cyclobenzaprine [Flexeril] 10 mg PO TID PRN #10 tablet 04/14/18 Lidocaine Patch 5% [Lidoderm Patch] 1 each TOP DAILY #14 patch 04/14/18 HYDROcod/ACETAM 5/325 [Mclean 5/325] 1 - 2 ea PO Q6H PRN #15 tablet 05/29/18 Ondansetron HCl [Zofran] 4 mg PO Q6H PRN #10 tablet 05/29/18 - Allergies Allergies/Adverse Reactions: Allergies Allergy/AdvReac Type Severity Reaction Status Date / Time No Known Drug Allergies Allergy Verified 05/29/18 15:38 - Social History Does the pt smoke?: No Smoking Status: Never smoker Does the pt have substance abuse?: No - Family History Family history: reports: Non contributory - Immunizations Immunizations are current?: Yes PD ED PE NORMAL - Vitals Vital signs reviewed: Yes - General General: Alert and oriented X 3 (She appears uncomfortable) - HEENT HEENT: PERRL, EOMI - Neck Neck: Supple, no meningeal sign, No bony TTP - Cardiac Cardiac: RRR, No murmur - Respiratory Respiratory: No respiratory distress, Clear bilaterally - Abdomen Abdomen: Normal bowel sounds, Soft, Other (Focally tender in the right lower quadrant at McBurney's point without surgical signs otherwise.) - 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[facility]), Other (Small dark post period Discharge without significant adnexal or cervical motion tenderness) - Back Back: No CVA TTP, No spinal TTP - Derm Derm: Normal color, Warm and dry - Extremities Extremities: No edema, No calf tenderness / cord - Neuro Neuro: Alert and oriented X 3, Normal speech Results - Vitals Vitals: Vital Signs - 24 hr 05/29/18 05/29/18 15:35 17:59 Temperature 36.3 C L 36.4 C L Heart Rate 73 96 Respiratory 20 20 Rate Blood Pressure 135/91 H 118/93 H O2 Saturation 100 96 Oxygen O2 Source Room air - Labs Labs: Laboratory Tests 05/29/18 05/29/18 05/29/18 15:47 15:47 16:43 WBC 11.9 H RBC 4.47 Hgb 14.2 Hct 40.5 MCV 90.6 MCH 31.8 H MCHC 35.1 RDW 12.6 Plt Count 385 MPV 7.0 L Neut # (Auto) 8.7 H Lymph # (Auto) 2.3 [place] # (Auto) 0.8 Eos # (Auto) 0.0 Baso # (Auto) 0.1 Absolute Nucleated RBC 0.00 Nucleated RBC % 0.0 Sodium 141 Potassium 3.1 L Chloride 106 Carbon Dioxide 20 L Anion Gap 15.0 H BUN 16 Creatinine 1.0 Estimated GFR (MDRD) 69 L Glucose 92 Calcium 9.8 Total Bilirubin 2.1 H AST 29 ALT 34 Alkaline Phosphatase 82 Total Protein 8.5 H Albumin 4.9 Globulin 3.6 Albumin/Globulin Ratio 1.4 Lipase 28 Urine Color YELLOW Urine Clarity CLEAR Urine pH 6.0 Ur Specific [place] >=1.030 H Urine Protein TRACE Urine Glucose (UA) NEGATIVE Urine Ketones >=80 H Urine Occult Blood TRACE-INTA Urine Nitrite NEGATIVE Urine Bilirubin NEGATIVE Urine Urobilinogen 0.2 (NORMAL) Ur Leukocyte Esterase NEGATIVE Ur Microscopic Review NOT INDICATED Urine Culture Comments NOT INDICATED Urine HCG, Qual NEGATIVE - Rads (name of study) CT A/P Radiology: EMP read contemporaneously (normal;) PD MEDICAL DECISION MAKING - ED course ED course: 22-year-old woman with right lower quadrant pain concerning for pelvic pathology versus appendicitis. Neither are evident on workup and close follow- up tomorrow was advised. - Sepsis Event Vital Signs: Vital Signs - 24 hr 05/29/18 05/29/18 15:35 17:59 Temperature 36.3 C L 36.4 C L Heart Rate 73 96 Respiratory 20 20 Rate Blood Pressure 135/91 H 118/93 H O2 Saturation 100 96 Oxygen O2 Source Room air Departure - Departure Disposition: 01 Home, Self Care Clinical Impression: Vomiting Qualifiers: Vomiting type: unspecified Vomiting Intractability: intractable Nausea presence : with nausea Qualified Code(s): R11.2 - Nausea with vomiting, unspecified Abdominal pain Qualifiers: Abdominal location: right lower quadrant Qualified Code(s): R10.31 - Right lower quadrant pain Condition: Good Record reviewed to determine appropriate education?: Yes Instructions: Abdominal Pain Prescriptions: HYDROcod/ACETAM 5/325 [Mclean 5/325] 1 - 2 ea PO Q6H PRN #15 tablet PRN Reason: Pain Ondansetron HCl [Zofran] 4 mg PO Q6H PRN #10 tablet PRN Reason: Nausea / Vomiting Comments: As discussed, return tomorrow morning if not better, sooner if worse or if new symptoms develop. Forms: Activity restrictions
[2018-05-29 15:52] LABS: BASOPHILS # (AUTO) 0.1 10^3/uL (0.0-0.1); BASOPHILS % (AUTO) 0.6 %; EOSINOPHILS % (AUTO) 0.1 %; HGB - HEMOGLOBIN 14.2 g/dL (12.0-16.0); LYMPHOCYTES # (AUTO) 2.3 10^3/uL (1.5-3.5); LYMPHOCYTES % (AUTO) 19.3 %; MEAN CORPUSCULAR HEMOGLOBIN 31.8 pg (27.0-31.0); MEAN CORPUSCULAR HGB CONC 35.1 g/dL (32.0-36.0); MEAN CORPUSCULAR VOLUME 90.6 fL (81.0-99.0); MONOCYTES # (AUTO) 0.8 10^3/uL (0.0-1.0); MONOCYTES % (AUTO) 6.8 %; NEUTROPHILS # (AUTO) 8.7 10^3/uL (1.5-6.6); NEUTROPHILS % (AUTO) 73.2 %; PLT - PLATELET COUNT 385 10^3/uL (130-450); RED BLOOD COUNT 4.47 10^6/uL (4.20-5.40); RED CELL DISTRIBUTION WIDTH 12.6 % (12.0-15.0); WHITE BLOOD COUNT 11.9 x10^3/uL (4.8-10.8)
[2018-05-29 16:03] LABS: ALBUMIN 4.9 g/dL (3.2-5.5); ALBUMIN/GLOBULIN RATIO 1.4 (1.0-2.2); BILIRUBIN,TOTAL 2.1 mg/dL (0.2-1.0); CALCIUM 9.8 mg/dL (8.5-10.3); TOTAL PROTEIN 8.5 g/dL (6.7-8.2)
[2018-05-29 16:54] LABS: GLUCOSE, URINE (UA) NEGATIVE (NEGATIVE); KETONES,URINE (UA) >=80 mg/dL (NEGATIVE); LEUKOCYTE ESTERASE, URINE NEGATIVE (NEGATIVE); NITRITE,URINE NEGATIVE (NEGATIVE); OCCULT BLOOD,URINE TRACE-INTA (NEGATIVE); PROTEIN,URINE TRACE mg/dL (NEGATIVE); UROBILINOGEN,URINE 0.2 (NORMAL) E.U./dL (NORMAL)
[2018-05-29] MEDS ORDERED: HYDROmorphone 2 MG/ML VIAL IVP STA (16:58)
[2018-05-29] MEDS ORDERED: SODIUM CHLORIDE 0.9% 1,000 ML IV ONE (16:59)
[2018-05-29 17:09] LABS: BILIRUBIN,URINE NEGATIVE (NEGATIVE); CLARITY,URINE CLEAR (CLEAR); HCG UR QUAL NEGATIVE; ICTOTEST,URINE NEGATIVE
[2018-05-29] MEDS ORDERED: IOPAMIDOL-300 100 ML VIAL ONE (17:23)
[2018-05-29] MEDS ORDERED: IOPAMIDOL-300 100 ML VIAL IVP ONE (18:04)
--- NOTE | 2018-05-29 18:22 | CT Report ---
Procedure Date: 05/29/2018 Accession Number: [id number] / [id number] Procedure: CT - Abdomen/Pelvis W/ CPT Code: FULL RESULT: EXAM: CT ABDOMEN AND PELVIS EXAM DATE: 05/29/2018 05:47 PM. CLINICAL HISTORY: IV only, RLQ pain. COMPARISONS: ABDOMEN/PELVIS W/O 12/18/2017 11:25 AM. TECHNIQUE: Routine helical CT imaging was performed through the abdomen and pelvis. IV contrast: ISOVUE 300 100mL. Enteric contrast: No. Reconstructions: Coronal and sagittal. In accordance with CT protocol optimization, one or more of the following dose reduction techniques were utilized for this exam: automated exposure control, adjustment of mA and/or KV based on patient size, or use of iterative reconstructive technique. FINDINGS: Lung Bases: Unremarkable. Liver: No focal liver lesion or intrahepatic biliary dilatation. Gallbladder/Bile Ducts: Unremarkable. Spleen: Normal. Pancreas: Normal. Adrenal Glands: Normal. Kidneys: Normal. No masses or hydronephrosis. Peritoneal Cavity/Bowel: Normal. No free fluid, free air or adenopathy. No masses or acute inflammatory process. The appendix is well visualized and normal. Pelvic Organs: Normal. The bladder and visualized pelvic organs are within normal limits. Vasculature: No aneurysms or other significant abnormality. Bones: No significant abnormality. Other: None. IMPRESSION: 1. No CT abnormality to explain symptoms. 2. Normal appendix. RADIA
[2018-05-29] MEDS ORDERED: KETOROLAC 60 MG/2 ML VIAL IVP STA (18:31)
[2018-05-29 19:22] VITALS: BP 144/94
== END 2018-05-29 19:20 | disposition home or self-care (01) ==
LOC: ED 15:27
DX: R11.2 Nausea with vomiting, unspecified (principal); R10.31 Right lower quadrant pain
CPT/HCPCS: 74177; 80053; 81003; 81025; 83690; 85025; 87491; 87591; 96361; 96374; 96375; 96376; 99283; J1170; Q9967; 36415; 81001; 87086

== ENCOUNTER 2018-05-30 21:05 | Emergency (ER) | payer OTHER ==
[2018-05-30] MEDS ORDERED: METOCLOPRAMIDE 10 MG/2 ML VIAL IVP STA (21:26)
[2018-05-30] MEDS ORDERED: SODIUM CHLORIDE 0.9% 1,000 ML IV ONE (21:26)
[2018-05-30] MEDS ORDERED: KETOROLAC 30 MG/ML VIAL IVP STA (21:26)
--- NOTE | 2018-05-30 21:30 | ED Physician Documentation ---
PD HPI ABD PAIN - Stated complaint Stated Complaint: ABD PX - Chief complaint Chief Complaint: Abd Pain - History obtained from History obtained from: Patient - History of Present Illness Timing - onset: Other (I saw her yesterday for abdominal pain. CT was negative , pelvic exam without evidence of PID. White count was 11.9. She continues to have pain and nausea today. Cannot keep anything down and has diarrhea 2. Further history and review the chart shows that this is been a problem for her since October where she has had intermittent attacks of right lower quadrant pain. She has had multiple CTs for same without answers. She had an exploratory laparoscopy in March showing some endometriosis and was doing a little better for a while after Lupron but now is worse again. She had her last normal menses starting a week ago.) Review of Systems Constitutional: reports: Sweats. 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 HEENT: None Psych: None Musculoskeletal: None Derm: None - Past Surgical History Past Surgical History: Yes HEENT: Tonsil/Adenoidectomy - Present Medications Home Medications: Ambulatory Orders Medication Instructions Recorded Confirmed HYDROcod/ACETAM 5/325 [[place] 5/325] 1 - 2 ea PO Q6H PRN #15 tablet 05/29/18 Ondansetron HCl [Zofran] 4 mg PO Q6H PRN #10 tablet 05/29/18 Ondansetron HCl [Zofran] 4 mg PO Q6H PRN #10 tablet 05/30/18 Oxycodone HCl/Acetaminophen 1 - 2 tab PO Q4H PRN #15 tablet 05/30/18 [Percocet 5-325 mg Tablet] - Allergies Allergies/Adverse Reactions: Allergies Allergy/AdvReac Type Severity Reaction Status Date / Time No Known Drug Allergies Allergy Verified 05/30/18 21:11 - Social History Does the pt smoke?: No Smoking Status: Never smoker Does the pt have substance abuse?: No - Family History Family history: reports: Non contributory - Immunizations Immunizations are current?: Yes PD ED PE NORMAL - Vitals Vital signs reviewed: Yes - General General: Alert and oriented X 3, Other (Uncomfortable, in pain.) - Neck Neck: Supple, no meningeal sign, No bony TTP - Cardiac Cardiac: RRR, No murmur - Respiratory Respiratory: No respiratory distress, Clear bilaterally - Abdomen Abdomen: Normal bowel sounds, Soft, Other (Focal tenderness in the right lower quadrant without surgical signs) - Back Back: No CVA TTP, No spinal TTP - Derm Derm: Normal color, Warm and dry - Extremities Extremities: No edema, No calf tenderness / cord - Neuro Neuro: Alert and oriented X 3, Normal speech - Psych Psych: Normal mood, Normal affect Results - Vitals Vitals: Vital Signs - 24 hr 05/30/18 05/30/18 05/30/18 21:08 21:48 23:48 Temperature 36.4 C L 36.5 C 36.3 C L Heart Rate 94 75 72 Respiratory 22 14 20 Rate Blood Pressure 138/89 H 119/82 H 134/68 H O2 Saturation 100 96 99 Oxygen O2 Source Room air - Labs Labs: Laboratory Tests 05/30/18 05/30/18 21:39 21:39 WBC 9.0 RBC 4.01 L Hgb 12.9 Hct 36.8 L MCV 91.8 MCH 32.1 H MCHC 35.0 RDW 12.7 Plt Count 354 MPV 7.1 L Neut # (Auto) 4.5 Lymph # (Auto) 3.6 H [place] # (Auto) 0.8 Eos # (Auto) 0.1 Baso # (Auto) 0.1 Absolute Nucleated RBC 0.00 Nucleated RBC % 0.0 Sodium 138 Potassium 3.6 Chloride 107 Carbon Dioxide 23 Anion Gap 8.0 BUN 14 Creatinine 0.9 Estimated GFR (MDRD) 78 L Glucose 135 H Calcium 8.8 Total Bilirubin 0.5 AST 26 ALT 27 Alkaline Phosphatase 73 Total Protein 7.1 Albumin 3.8 Globulin 3.3 Albumin/Globulin Ratio 1.2 Lipase 32 PD MEDICAL DECISION MAKING - ED course ED course: This is a 22-year-old woman with now chronic recurrent lower abdominal pain of unclear etiology status post negative workup except for reported endometriosis on laparoscopy for which she is receiving medical management. After the administration of divided doses of pain and nausea medication she was feeling better and passed an oral challenge and did request discharge. She did produce a stool sample here which was sent for stool studies. - Sepsis Event Vital Signs: Vital Signs - 24 hr 05/30/18 05/30/18 05/30/18 21:08 21:48 23:48 Temperature 36.4 C L 36.5 C 36.3 C L Heart Rate 94 75 72 Respiratory 22 14 20 Rate Blood Pressure 138/89 H 119/82 H 134/68 H O2 Saturation 100 96 99 Oxygen O2 Source Room air Departure - Departure Disposition: Home, Self Care Clinical Impression: Abdominal pain Qualifiers: Abdominal location: right lower quadrant Qualified Code(s): R10.31 - Right lower quadrant pain Condition: Good Record reviewed to determine appropriate education?: Yes Instructions: ED Abdominal Pain Unkn Cause Prescriptions: Ondansetron HCl [Zofran] 4 mg PO Q6H PRN #10 tablet PRN Reason: Nausea / Vomiting Oxycodone HCl/Acetaminophen [Percocet 5-325 mg Tablet] 1 - 2 tab PO Q4H PRN #15 tablet PRN Reason: Pain Comments: Reasonable as discussed to follow-up with the surgeon and/or advertising sales representative as referred by your flight surgeon. Return anytime if worse. Discharge Date/Time: 05/30/18 23:55
[2018-05-30 21:45] LABS: BASOPHILS # (AUTO) 0.1 10^3/uL (0.0-0.1); BASOPHILS % (AUTO) 0.8 %; EOSINOPHILS # (AUTO) 0.1 10^3/uL (0.0-0.7); EOSINOPHILS % (AUTO) 1.5 %; HGB - HEMOGLOBIN 12.9 g/dL (12.0-16.0); LYMPHOCYTES # (AUTO) 3.6 10^3/uL (1.5-3.5); LYMPHOCYTES % (AUTO) 39.6 %; MEAN CORPUSCULAR HEMOGLOBIN 32.1 pg (27.0-31.0); MEAN CORPUSCULAR VOLUME 91.8 fL (81.0-99.0); MEAN PLATELET VOLUME 7.1 fL (7.9-10.8); MONOCYTES # (AUTO) 0.8 10^3/uL (0.0-1.0); MONOCYTES % (AUTO) 8.6 %; NEUTROPHILS # (AUTO) 4.5 10^3/uL (1.5-6.6); NEUTROPHILS % (AUTO) 49.5 %; PLT - PLATELET COUNT 354 10^3/uL (130-450); RED BLOOD COUNT 4.01 10^6/uL (4.20-5.40); RED CELL DISTRIBUTION WIDTH 12.7 % (12.0-15.0)
[2018-05-30 21:56] LABS: ALBUMIN 3.8 g/dL (3.2-5.5); ALBUMIN/GLOBULIN RATIO 1.2 (1.0-2.2); BILIRUBIN,TOTAL 0.5 mg/dL (0.2-1.0); CALCIUM 8.8 mg/dL (8.5-10.3); CREATININE 0.9 mg/dL (0.4-1.0); TOTAL PROTEIN 7.1 g/dL (6.7-8.2)
[2018-05-30] MEDS ORDERED: HYDROmorphone 2 MG/ML VIAL IVP STA ×2 (22:17→23:02)
[2018-05-30] MEDS ORDERED: oxyCODONE/ACET 5/325 Prepack 4 PO STA (23:27)
[2018-05-30 23:50] VITALS: BP 134/68
--- NOTE | 2018-05-31 07:37 | ED Physician Documentation ---
ED Addendum - Addendum Addendum: 05/31/18 07:36 Chart accessed for culture review. Stool sample is (+) for clostridium difficile. Recommend start Rx: Vancocin 125mg PO QID x 10 days
== END 2018-05-30 23:55 | disposition home or self-care (01) ==
LOC: ED 21:05
DX: R10.31 Right lower quadrant pain (principal); N80.9 Endometriosis, unspecified; A04.72 Enterocolitis due to Clostridium difficile, not specified as recurrent
CPT/HCPCS: 36415; 80053; 83690; 85025; 87045; 87046; 87177; 87209; 87493; 96361; 96374; 96375; 96376; 99283; J1170; J2765

== ENCOUNTER 2018-06-12 23:03 | Emergency (ER) | payer OTHER ==
[2018-06-13] MEDS ORDERED: ONDANSETRON 4 MG/2 ML VIAL IVP STA ×2 (00:46→01:46)
[2018-06-13] MEDS ORDERED: SODIUM CHLORIDE 0.9% 1,000 ML IV ONE (00:46)
[2018-06-13 01:00] LABS: BASOPHILS # (AUTO) 0.1 10^3/uL (0.0-0.1); BASOPHILS % (AUTO) 0.9 %; EOSINOPHILS % (AUTO) 0.2 %; HGB - HEMOGLOBIN 14.1 g/dL (12.0-16.0); LYMPHOCYTES # (AUTO) 2.8 10^3/uL (1.5-3.5); LYMPHOCYTES % (AUTO) 20.3 %; MEAN CORPUSCULAR HEMOGLOBIN 32.5 pg (27.0-31.0); MEAN CORPUSCULAR HGB CONC 35.2 g/dL (32.0-36.0); MEAN CORPUSCULAR VOLUME 92.3 fL (81.0-99.0); MEAN PLATELET VOLUME 7.3 fL (7.9-10.8); MONOCYTES # (AUTO) 0.9 10^3/uL (0.0-1.0); MONOCYTES % (AUTO) 6.8 %; NEUTROPHILS % (AUTO) 71.8 %; PLT - PLATELET COUNT 363 10^3/uL (130-450); RED BLOOD COUNT 4.34 10^6/uL (4.20-5.40); RED CELL DISTRIBUTION WIDTH 12.6 % (12.0-15.0); WHITE BLOOD COUNT 13.9 x10^3/uL (4.8-10.8)
[2018-06-13 01:03] LABS: ALBUMIN 4.3 g/dL (3.2-5.5); ALBUMIN/GLOBULIN RATIO 1.2 (1.0-2.2); BILIRUBIN,TOTAL 0.8 mg/dL (0.2-1.0); CALCIUM 9.1 mg/dL (8.5-10.3); CREATININE 0.8 mg/dL (0.4-1.0); PHOSPHORUS 4.2 mg/dL (2.5-4.6); TOTAL PROTEIN 7.9 g/dL (6.7-8.2)
[2018-06-13 01:14] LABS: BILIRUBIN,URINE NEGATIVE (NEGATIVE); GLUCOSE, URINE (UA) NEGATIVE (NEGATIVE); KETONES,URINE (UA) NEGATIVE (NEGATIVE); LEUKOCYTE ESTERASE, URINE NEGATIVE (NEGATIVE); NITRITE,URINE NEGATIVE (NEGATIVE); OCCULT BLOOD,URINE SMALL (NEGATIVE); PROTEIN,URINE NEGATIVE (NEGATIVE); UROBILINOGEN,URINE 0.2 (NORMAL) E.U./dL (NORMAL)
[2018-06-13 01:20] LABS: CLARITY,URINE CLEAR (CLEAR); HCG UR QUAL NEGATIVE
[2018-06-13 01:25] LABS: BACTERIA,URINE Few /HPF (None Seen); RBC,URINE 0-5 /HPF (0-5); SQUAMOUS EPITHELIAL CELL,UR FEW Squamous (<= Few)
[2018-06-13] MEDS ORDERED: MORPHINE 10 MG/ML VIAL IVP STA (01:46)
--- NOTE | 2018-06-13 01:59 | ED Physician Documentation ---
PD HPI ABD PAIN - Stated complaint Stated Complaint: ABD PX - Chief complaint Chief Complaint: Abd Pain - History obtained from History obtained from: Patient - History of Present Illness Timing - onset: Chronic Quality: Cramping, Aching, Sharp Location: RLQ Associated symptoms: Nausea, Vomiting Similar symptoms before: Work up / diagnostics, Treatment Recently seen: Clinic - Additional information Additional information: patient is a 23 year old female with a history of chronic abdominal pain who is presenting to the emergency department for abdominal pain. Patient had a history of endometriosis abut they were removed and patient had been cleared by OB and sent to general surgery. patient was seen by the general surgery clinic today who stated she had chronic appendicitis. patient reports recurrent abdominal pain so she came in for evaluation. Review of Systems Constitutional: denies: Fever, Chills Cardiac: denies: Chest pain / pressure, Palpitations Respiratory: denies: Dyspnea, Cough GI: reports: Abdominal Pain, Nausea, Vomiting. 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 HEENT: Tonsil/Adenoidectomy - Present Medications Home Medications: Ambulatory Orders Medication Instructions Recorded Confirmed HYDROcod/ACETAM 5/325 [[place] 5/325] 1 - 2 ea PO Q6H PRN #15 tablet 05/29/18 Ondansetron HCl [Zofran] 4 mg PO Q6H PRN #10 tablet 05/29/18 Ondansetron HCl [Zofran] 4 mg PO Q6H PRN #10 tablet 05/30/18 Oxycodone HCl/Acetaminophen 1 - 2 tab PO Q4H PRN #15 tablet 05/30/18 [Percocet 5-325 mg Tablet] Ondansetron Odt [Zofran] 4 mg TL Q6H PRN #14 tablet 06/13/18 - Allergies Allergies/Adverse Reactions: Allergies Allergy/AdvReac Type Severity Reaction Status Date / Time No Known Drug Allergies Allergy Verified 06/12/18 23:17 - Social History Does the pt smoke?: No Smoking Status: Never smoker Does the pt drink ETOH?: Yes Does the pt have substance abuse?: No - Immunizations Immunizations are current?: Yes - POLST Patient has POLST: No PD ED PE NORMAL - Vitals Vital signs reviewed: Yes - General General: Alert and oriented X 3 - HEENT HEENT: Atraumatic, Moist mucous membranes - Cardiac Cardiac: RRR, No murmur - Respiratory Respiratory: No respiratory distress - Abdomen Abdomen: Soft - Derm Derm: Normal color, Warm and dry - Extremities Extremities: No deformity - Neuro Neuro: Alert and oriented X 3, internist 2-12 intact, No motor deficit, No sensory deficit, Normal speech Eye Opening: Spontaneous Motor: Obeys Commands Verbal: Oriented GCS Score: 15 PD ED PE EXPANDED - General General: Alert, In Pain - Abdomen Abdomen: Tender to palpation, RLQ. No: Rebound, Guarding - Psych Psych: Tearful Results - Vitals Vitals: Vital Signs - 24 hr 06/12/18 06/13/18 06/13/18 23:17 01:42 02:15 Temperature 36.5 C Heart Rate 86 83 79 Respiratory 18 18 18 Rate Blood Pressure 130/97 H 127/83 H 126/92 H O2 Saturation 99 100 98 06/13/18 02:53 Temperature Heart Rate 81 Respiratory 16 Rate Blood Pressure 118/75 O2 Saturation 99 Oxygen O2 Source Room air - Labs Labs: Laboratory Tests 06/13/18 06/13/18 06/13/18 00:40 00:40 00:40 WBC 13.9 H RBC 4.34 Hgb 14.1 Hct 40.1 MCV 92.3 MCH 32.5 H MCHC 35.2 RDW 12.6 Plt Count 363 MPV 7.3 L Neut # (Auto) 10.0 H Lymph # (Auto) 2.8 [place] # (Auto) 0.9 Eos # (Auto) 0.0 Baso # (Auto) 0.1 Absolute Nucleated RBC 0.00 Nucleated RBC % 0.0 Sodium 137 Potassium 3.5 Chloride 106 Carbon Dioxide 23 Anion Gap 8.0 BUN 9 Creatinine 0.8 Estimated GFR (MDRD) 89 Glucose 99 Lactic Acid Calcium 9.1 Phosphorus 4.2 Magnesium 2.0 Total Bilirubin 0.8 AST 29 ALT 41 Alkaline Phosphatase 73 Total Protein 7.9 Albumin 4.3 Globulin 3.6 Albumin/Globulin Ratio 1.2 Lipase 32 HCG, Quant < 0.60 Urine Color Urine Clarity Urine pH Ur Specific [place] Urine Protein Urine Glucose (UA) Urine Ketones Urine Occult Blood Urine Nitrite Urine Bilirubin Urine Urobilinogen Ur Leukocyte Esterase Urine RBC Urine WBC Ur Squamous Epith Cells Urine Bacteria Ur Microscopic Review Urine Culture Comments Urine HCG, Qual 06/13/18 06/13/18 00:50 01:00 WBC RBC Hgb Hct MCV MCH MCHC RDW Plt Count MPV Neut # (Auto) Lymph # (Auto) [place] # (Auto) Eos # (Auto) Baso # (Auto) Absolute Nucleated RBC Nucleated RBC % Sodium Potassium Chloride Carbon Dioxide Anion Gap BUN Creatinine Estimated GFR (MDRD) Glucose Lactic Acid 1.1 Calcium Phosphorus Magnesium Total Bilirubin AST ALT Alkaline Phosphatase Total Protein Albumin Globulin Albumin/Globulin Ratio Lipase HCG, Quant Urine Color YELLOW Urine Clarity CLEAR Urine pH 6.0 Ur Specific [place] 1.015 Urine Protein NEGATIVE Urine Glucose (UA) NEGATIVE Urine Ketones NEGATIVE Urine Occult Blood SMALL H Urine Nitrite NEGATIVE Urine Bilirubin NEGATIVE Urine Urobilinogen 0.2 (NORMAL) Ur Leukocyte Esterase NEGATIVE Urine RBC 0-5 Urine WBC 0-3 Ur Squamous Epith Cells FEW Squamous Urine Bacteria Few Ur Microscopic Review INDICATED Urine Culture Comments NOT INDICATED Urine HCG, Qual NEGATIVE - Rads (name of study) ct abd pelvis Radiology: Final report received (no acute findings) PD MEDICAL DECISION MAKING - ED course Complexity details: reviewed old records, reviewed results, re-evaluated patient , considered differential, d/w patient ED course: Patient was seen and examined at bedside. IV access was gained and labs were drawn. Patient was treated with ns bolus, zofran and morphine. Imaging was ordered. When patient returned from imaging results were reviewed. there were no significant abnormalities on imaging nor had there been on all other previous diagnostics tests that had been performed here. It is difficult to say what exactly was causing her pain, but the work up could be done in an outpatient setting. - Sepsis Event Vital Signs: Vital Signs - 24 hr 06/12/18 06/13/18 06/13/18 23:17 01:42 02:15 Temperature 36.5 C Heart Rate 86 83 79 Respiratory 18 18 18 Rate Blood Pressure 130/97 H 127/83 H 126/92 H O2 Saturation 99 100 98 06/13/18 02:53 Temperature Heart Rate 81 Respiratory 16 Rate Blood Pressure 118/75 O2 Saturation 99 Oxygen O2 Source Room air Departure - Departure Disposition: 01 Home, Self Care Clinical Impression: Abdominal pain Condition: Good Instructions: ED Abdominal Pain Unkn Cause Follow-Up: Sobia Martínez MD [Provider Admit Priv/Credential] - Tomorrow Prescriptions: Ondansetron Odt [Zofran] 4 mg TL Q6H PRN #14 tablet PRN Reason: Nausea / Vomiting Comments: Your diagnostics today were within normal limits. there were no acute abnormalities on your imaging. The next step would be to follow up with Dr. martínez for a colonoscopy. You can take motrin or tylenol as needed for pain. and zofran as needed for nausea.
[2018-06-13] MEDS ORDERED: IOPAMIDOL-300 100 ML VIAL ONE (02:12)
[2018-06-13] MEDS ORDERED: IOPAMIDOL-300 100 ML VIAL IVP ONE (02:38)
--- NOTE | 2018-06-13 03:07 | CT Report ---
Reason: rlq pain Procedure Date: 06/13/2018 Accession Number: [id number] / [id number] Procedure: CT - Abdomen/Pelvis W/ CPT Code: FULL RESULT: EXAM: CT ABDOMEN AND PELVIS EXAM DATE: 06/13/2018 02:40 AM. CLINICAL HISTORY: Rlq pain. COMPARISONS: 05/29/2018. TECHNIQUE: Routine helical CT imaging was performed through the abdomen and pelvis. IV contrast: ISOVUE 300 100mL. Enteric contrast: No. Reconstructions: Coronal and sagittal. In accordance with CT protocol optimization, one or more of the following dose reduction techniques were utilized for this exam: automated exposure control, adjustment of mA and/or KV based on patient size, or use of iterative reconstructive technique. FINDINGS: Lung Bases: Unremarkable. Liver: Normal. No masses. Gallbladder/Bile Ducts: Unremarkable. Spleen: Normal. Pancreas: Normal. Adrenal Glands: Normal. Kidneys: Normal. No masses or hydronephrosis. Peritoneal Cavity/Bowel: Colonic diverticulosis, without CT evidence of diverticulitis. No small bowel dilatation, free gas, or free fluid. No abdominal adenopathy. The appendix is well visualized and normal. Pelvic Organs: Small amount of free fluid in the cul-de-sac, likely physiologic. No pelvic adenopathy. The pelvic organs appear unremarkable. Vasculature: No aneurysms or other significant abnormality. Bones: No significant abnormality. Other: None. IMPRESSION: No evident etiology for patient's right lower quadrant pain. Normal appendix. No significant interval change. RADIA
[2018-06-13 03:41] VITALS: BP 146/90
== END 2018-06-13 03:47 | disposition home or self-care (01) ==
LOC: ED 23:03
DX: R10.9 Unspecified abdominal pain (principal)
CPT/HCPCS: 74177; 80053; 81001; 81025; 83605; 83690; 83735; 84100; 84702; 85025; 96361; 96374; 96375; 96376; 99284; Q9967; 36415; 81003; 87086; 99283

== ENCOUNTER 2018-07-07 03:44 | Day surgery (SDC) | payer OTHER ==
--- NOTE | 2018-07-07 04:12 | ED Physician Documentation ---
History of Present Illness - Stated complaint Stated Complaint: ABD PX - Chief complaint Chief Complaint: Abd Pain - History obtained from History obtained from: Patient - Additonal information Additional information: 23-year-old female presents the emergency department with right lower abdominal pain. The patient has a history of chronic abdominal pain and has had numerous workups in the emergency department. The patient is actually scheduled to have a laparoscopic appendectomy tomorrow. The patient reports her typical pain which is associated with nausea and vomiting. No specific triggering factors. No relieving factors. 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 : None HEENT: None Psych: None Musculoskeletal: None Derm: None - Past Surgical History 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 HEENT: Tonsil/Adenoidectomy - Allergies Allergies/Adverse Reactions: Allergies Allergy/AdvReac Type Severity Reaction Status Date / Time No Known Drug Allergies Allergy Verified 07/07/18 03:52 - Social History Does the pt smoke?: No Smoking Status: Never smoker Does the pt drink ETOH?: Yes Does the pt have substance abuse?: No - Immunizations Immunizations are current?: Yes - POLST Patient has POLST: No PD ED PE NORMAL - General General: Alert and oriented X 3, No acute distress - HEENT HEENT: Atraumatic, PERRL, EOMI, Ears normal - Neck Neck: Supple, no meningeal sign - Cardiac Cardiac: RRR, Strong equal pulses - Respiratory Respiratory: No respiratory distress - Abdomen Abdomen: Soft, Non distended. No: Non tender (Tender palpation in the Right lower abdomen, no rebound or peritoneal signs) - Derm Derm: Normal color - Extremities Extremities: No deformity, No calf tenderness / cord - Neuro Neuro: Alert and oriented X 3, Normal speech - Psych Psych: Normal mood Results - Vitals Vitals: Vital Signs - 24 hr 09/23/18 09/23/18 03:47 06:11 Temperature 36.4 C L 36.7 C Heart Rate 100 72 Respiratory 22 20 Rate Blood Pressure 115/85 H 103/74 O2 Saturation 98 97 Oxygen O2 Source Room air - Labs Labs: Laboratory Tests 07/07/18 07/07/18 07/07/18 04:20 04:20 04:20 WBC 9.4 RBC 4.48 Hgb 14.5 Hct 41.0 MCV 91.4 MCH 32.3 H MCHC 35.3 RDW 12.3 Plt Count 404 MPV 7.5 L Neut # (Auto) 5.2 Lymph # (Auto) 3.5 [place] # (Auto) 0.6 Eos # (Auto) 0.0 Baso # (Auto) 0.1 Absolute Nucleated RBC 0.01 Nucleated RBC % 0.1 Sodium 140 Potassium 3.5 Chloride 105 Carbon Dioxide 22 Anion Gap 13.0 BUN 5 L Creatinine 0.7 Estimated GFR (MDRD) 104 Glucose 101 H Calcium 8.9 Total Bilirubin 0.6 AST 25 ALT 28 Alkaline Phosphatase 77 Total Protein 7.9 Albumin 4.3 Globulin 3.6 Albumin/Globulin Ratio 1.2 Lipase 27 Serum HCG, Qual NEGATIVE Urine Color Urine Clarity Urine pH Ur Specific [place] Urine Protein Urine Glucose (UA) Urine Ketones Urine Occult Blood Urine Nitrite Urine Bilirubin Urine Urobilinogen Ur Leukocyte Esterase Urine RBC Urine WBC Ur Squamous Epith Cells Urine Bacteria Ur Microscopic Review Urine Culture Comments 07/07/18 05:05 WBC RBC Hgb Hct MCV MCH MCHC RDW Plt Count MPV Neut # (Auto) Lymph # (Auto) [place] # (Auto) Eos # (Auto) Baso # (Auto) Absolute Nucleated RBC Nucleated RBC % Sodium Potassium Chloride Carbon Dioxide Anion Gap BUN Creatinine Estimated GFR (MDRD) Glucose Calcium Total Bilirubin AST ALT Alkaline Phosphatase Total Protein Albumin Globulin Albumin/Globulin Ratio Lipase Serum HCG, Qual Urine Color YELLOW Urine Clarity CLEAR Urine pH 6.0 Ur Specific [place] 1.010 Urine Protein NEGATIVE Urine Glucose (UA) NEGATIVE Urine Ketones NEGATIVE Urine Occult Blood SMALL H Urine Nitrite NEGATIVE Urine Bilirubin NEGATIVE Urine Urobilinogen 0.2 (NORMAL) Ur Leukocyte Esterase NEGATIVE Urine RBC 0-5 Urine WBC 0-3 Ur Squamous Epith Cells RARE Squamous Urine Bacteria None Seen Ur Microscopic Review INDICATED Urine Culture Comments NOT INDICATED PD MEDICAL DECISION MAKING - ED course ED course: The patient has a history of chronic abdominal/pelvic pain and has had numerous negative workups. Currently, there is no clear evidence of acute appendicitis so I do not think reimaging the patient would be of much utility. Since, the patient scheduled for surgery tomorrow I discussed the case with her surgeon Dr. Jorgensen. He will come and evaluate the patient in the emergency department. 07:00 AM The case was turned over to the [facility] emergency physician Who will follow up on the recommendations from Dr. Jorgensen. - Sepsis Event Vital Signs: Vital Signs - 24 hr 07/07/18 07/07/18 03:47 06:11 Temperature 36.4 C L 36.7 C Heart Rate 100 72 Respiratory 22 20 Rate Blood Pressure 115/85 H 103/74 O2 Saturation 98 97 Oxygen O2 Source Room air Departure - Departure Clinical Impression: Abdominal pain Qualifiers: Abdominal location: right lower quadrant Qualified Code(s): R10.31 - Right lower quadrant pain
[2018-07-07] MEDS ORDERED: diphenhydrAMINE INJ 50 MG/ML VIAL IVP STA (04:17)
[2018-07-07] MEDS ORDERED: PROMETHAZINE INJ 25 MG in SODIUM CHLORIDE 0.9% 50 ML IV STA (04:17)
[2018-07-07] MEDS ORDERED: SODIUM CHLORIDE 0.9% 1,000 ML IV ONE (04:17)
[2018-07-07] MEDS ORDERED: ACETAMINOPHEN 1,000 MG/100 ML 100 ML IV STA (04:17)
[2018-07-07 04:36] LABS: BASOPHILS # (AUTO) 0.1 10^3/uL (0.0-0.1); BASOPHILS % (AUTO) 0.9 %; EOSINOPHILS % (AUTO) 0.5 %; HGB - HEMOGLOBIN 14.5 g/dL (12.0-16.0); LYMPHOCYTES # (AUTO) 3.5 10^3/uL (1.5-3.5); LYMPHOCYTES % (AUTO) 36.9 %; MEAN CORPUSCULAR HEMOGLOBIN 32.3 pg (27.0-31.0); MEAN CORPUSCULAR HGB CONC 35.3 g/dL (32.0-36.0); MEAN CORPUSCULAR VOLUME 91.4 fL (81.0-99.0); MEAN PLATELET VOLUME 7.5 fL (7.9-10.8); MONOCYTES # (AUTO) 0.6 10^3/uL (0.0-1.0); MONOCYTES % (AUTO) 6.1 %; NEUTROPHILS # (AUTO) 5.2 10^3/uL (1.5-6.6); NEUTROPHILS % (AUTO) 55.6 %; PLT - PLATELET COUNT 404 10^3/uL (130-450); RED BLOOD COUNT 4.48 10^6/uL (4.20-5.40); RED CELL DISTRIBUTION WIDTH 12.3 % (12.0-15.0); WHITE BLOOD COUNT 9.4 x10^3/uL (4.8-10.8)
[2018-07-07 04:46] LABS: ALBUMIN 4.3 g/dL (3.2-5.5); ALBUMIN/GLOBULIN RATIO 1.2 (1.0-2.2); BILIRUBIN,TOTAL 0.6 mg/dL (0.2-1.0); CALCIUM 8.9 mg/dL (8.5-10.3); CREATININE 0.7 mg/dL (0.4-1.0); TOTAL PROTEIN 7.9 g/dL (6.7-8.2)
[2018-07-07 05:07] LABS: HCG,QUALITATIVE BLOOD NEGATIVE
[2018-07-07 05:19] LABS: BILIRUBIN,URINE NEGATIVE (NEGATIVE); GLUCOSE, URINE (UA) NEGATIVE (NEGATIVE); KETONES,URINE (UA) NEGATIVE (NEGATIVE); LEUKOCYTE ESTERASE, URINE NEGATIVE (NEGATIVE); NITRITE,URINE NEGATIVE (NEGATIVE); OCCULT BLOOD,URINE SMALL (NEGATIVE); PROTEIN,URINE NEGATIVE (NEGATIVE); UROBILINOGEN,URINE 0.2 (NORMAL) E.U./dL (NORMAL)
[2018-07-07 05:21] LABS: CLARITY,URINE CLEAR (CLEAR)
[2018-07-07 05:30] LABS: BACTERIA,URINE None Seen /HPF (None Seen); RBC,URINE 0-5 /HPF (0-5); SQUAMOUS EPITHELIAL CELL,UR RARE Squamous (<= Few)
[2018-07-07] MEDS ORDERED: KETOROLAC 60 MG/2 ML VIAL IVP STA (06:04)
--- NOTE | 2018-07-07 09:23 | CONSULTATION NOTE ---
Referring Provider Name of Referring Provider:: Dr. Orourke Consult Date: 07/07/18 Chief Complaint - Chief Complaint Chief Complaint: RLQ abd pain History of Present Illness - Admitted From Admitted From:: ER - History Obtained From Records Reviewed: yes History obtained from: pt, records Exam Limitations: none - History of Present Illness HPI Comment/Other: 23 yo female with 9 month hx RLQ pain with intermittent severe exacerbations associated with N/V prompting numerous ER visits and imaging studies. Labs and imaging studies have repeatedly been negative. She is G0 with no hx PID. No urinary sx. She has irregular periods and a control implant was removed and replaced with OCPs without improvement in sx. She was evaluated with a diagnostic pelvic laparoscopy at [facility] in March, where ? mild endometriosis implants were noted over both ureters and were not treated because of their proximity to her ureters; her appendix was not visualized. She is scheduled for lap appy tomorrow but developed acute worsening of her chronic pain last night prompting a return to the ER this morning. No fever, melena, hematochezia, wt loss. She had an episode of C. diff colitis last month treated with resolution. 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: reports: Other (pelvic laparoscopy 03/2018) HEENT: reports: Tonsil/Adenoidectomy - Family & Social History Family History Comment/Other: neg for GI tumors Living arrangement: At home Living Situation: Alone - Substance History Use: Uses substance without health or social issues: Tobacco, Alcohol (less than one drink/day) Abuse: Recurrent use of substance despite neg consequences: NONE Dependence: Experiences withdrawal or developed tolerances: NONE Tobacco Details: Cigarettes (/ ppd) - POLST Patient has POLST: No POLST Status: Full Code Meds/Allgy - Home Medications Home Medications: Ambulatory Orders Medication Instructions Recorded Confirmed Norethindrone-E.estradiol-Iron 1 tab ORAL 07/07/18 [[place]-Phubwe-Yi 1-0.02(62)-75] - Allergies Allergies/Adverse Reactions: Allergies Allergy/AdvReac Type Severity Reaction Status Date / Time No Known Drug Allergies Allergy Verified 07/07/18 03:52 Review of Systems - Constitutional Constitutional: reports: Weight gain - Gastrointestinal Gastrointestinal: reports: Abdominal pain, Diarrhea (2 loose stools over past 24 hours), Nausea, Vomiting. denies: Rectal bleeding, Black stools, Bloody stools, Coffee grounds emesis, Reflux/heartburn - Hematologic/Lymphatic Hematologic/Lymphatic: denies: Bleeding tendencies - All Other Systems All Other Systems: reports: Reviewed and negative Exam - Vital Signs Reviewed Vital Signs: Yes Vital Signs: Vital Signs x48h Temp Pulse Resp BP Pulse Ox 07/07/18 06:11 36.7 C 72 20 103/74 97 07/07/18 03:47 36.4 C L 100 22 115/85 H 98 - Physical Exam General Appearance: positive: Moderate distress, Anxious Eyes Bilateral: positive: Normal inspection, Conjunctivae nml, No scleral icterus ENT: positive: ENT inspection nml, Pharynx nml, No signs of dehydration Neck: positive: Nml inspection. negative: Lymphadenopathy (R), Lymphadenopathy (L) Respiratory: positive: Chest non-tender, No respiratory distress, Breath sounds nml Cardiovascular: positive: Regular rate & rhythm, No murmur, No gallop Abdomen: positive: No organomegaly, Nml bowel sounds, No distention, Tenderness (reproducible RLQ tenderness below and medial to McBurney's pt with voluntary guarding; no rebound or generalized peritoneal signs.), Guarding. negative: Hepatomegaly, Splenomegaly, Mass Skin: positive: Color nml, No rash, Warm, Dry Extremities: positive: Nml appearance, No pedal edema. negative: Calf tenderness Neurologic/Psychiatric: positive: Oriented x3 Conclusion/Plan - Diagnosis Diagnosis: Recurrent RLQ pain with acute exacerbation of unclear etiology; ddx includes chronic appendicitis, endometriosis, IBS, IBD, other campaign worker pathology. - Plan Plan: To OR for diagnostic laparoscopy and appendectomy. PAR conf with pt and consent obtained. The procedure will be performed later today. - Lab Results Lab results reviewed: Yes Fish Bones: 07/07/18 04:20 07/07/18 04:20 Other Lab Results: LFTs, lipase, UA all neg
[2018-07-07] MEDS ORDERED: MORPHINE 10 MG/ML VIAL IVP ONE (12:00)
[2018-07-07] MEDS ORDERED: ONDANSETRON 4 MG/2 ML VIAL IVP STA (12:01)
--- NOTE | 2018-07-07 12:02 | ED Physician Documentation ---
ED Addendum - Addendum Addendum: 07/07/18 12:02 Patient is awaiting going to surgery for appendicitis. She had not had any pain medication for worse multiple several hours and is now having some increased pain and asked for some pain medication. I ordered this for her. Presumably she will be going to the OR soon.
[2018-07-07] MEDS ORDERED: BUPIVACAINE 0.25%-EPI 1:200000 PF 30 ML VIAL ONE (12:12)
--- NOTE | 2018-07-07 12:29 | ANESTHESIA ---
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 - Procedure Lap appy Vital Signs: Temp Pulse Resp BP Pulse Ox 36.7 C 73 16 107/76 97 07/07/18 12:17 07/07/18 12:17 07/07/18 12:17 07/07/18 12:17 07/07/18 12:17 Height 5 ft 3 in Weight (kg) 84 kg Body Mass Index 32.8 - NPO >8 hours - Is Patient ?: No - Lab Results Current Lab Results: Laboratory Tests 07/07/18 04:20: Serum HCG, Qual NEGATIVE 07/07/18 04:20: Sodium 140, Potassium 3.5, Chloride 105, Carbon Dioxide 22, Anion Gap 13.0, BUN 5 L, Creatinine 0.7, Estimated GFR (MDRD) 104, Glucose 101 H , Calcium 8.9, Total Bilirubin 0.6, AST 25, ALT 28, Alkaline Phosphatase 77, Total Protein 7.9, Albumin 4.3, Globulin 3.6, Albumin/Globulin Ratio 1.2, Lipase 27 07/07/18 04:20: WBC 9.4, RBC 4.48, Hgb 14.5, Hct 41.0, MCV 91.4, MCH 32.3 H, MCHC 35.3, RDW 12.3, Plt Count 404, MPV 7.5 L, Neut # (Auto) 5.2, Lymph # (Auto) 3.5, [place] # (Auto) 0.6, Eos # (Auto) 0.0, Baso # (Auto) 0.1, Absolute Nucleated RBC 0.01, Nucleated RBC % 0.1 Lab results reviewed: Yes Fish Bones: 07/07/18 04:20 07/07/18 04:20 Home Medications and Allergies Home Medications: Ambulatory Orders Medication Instructions Recorded Confirmed Norethindrone-E.estradiol-Iron 1 tab ORAL 07/07/18 [Rzzipv-Cugjeu-Gr 1-0.02(21)-75] Norethindrone-E.estradiol-Iron [Zgqgyz-Mxbvxy-Ay 1-0.02(21)-75] 1 tab ORAL 07/07/18 Allergies/Adverse Reactions: Allergies Allergy/AdvReac Type Severity Reaction Status Date / Time No Known Drug Allergies Allergy Verified 07/07/18 03:52 Anes History & Medical History - Anesthetic History Anesthesia Complications: reports: No previous complications Family history of Anesthesia Complications: Denies Family history of Malignant Hyperthermia: Denies - Medical History Cardiovascular: reports: None Pulmonary: reports: None Gastrointestinal: reports: None Urinary: reports: None Neuro: reports: None Musculoskeletal: reports: None Endocrine/Autoimmune: reports: None Blood Disorders: reports: None Skin: reports: None Smoking Status: Current every day smoker Psychosocial: reports: No issues indicated - Surgical History Eyes Ears Nose Throat (EENT): Tonsil/Adenoidectomy Gynecologic: Other (pelvic laparoscopy 03/2018) Exam General: Alert Dental: WNL Mouth Opening: Greater than 4 Fingerbreadths Neck Mobility: Normal Mallampati classification: I Thyromental Distance: greater than 6 cm Respiratory: Lungs clear Cardiovascular: Regular rate Neurological: Normal speech Mental/Cognitive Status: Alert/Oriented X3 Cognitive Status: Within normal limits Plan Anesthesia Type: General Consent for Procedure(s) Verified and Reviewed: Yes Code Status: Attempt Resuscitation ASA classification: 2-Mild systemic disease Is this case an emergency?: Yes
[2018-07-07] MEDS ORDERED: metroNIDAZOLE 500 MG/100 ML 500 MG/100 ML BAG ONE (13:13)
[2018-07-07] MEDS ORDERED: BUPIVACAINE 0.25%-EPI 1:200000 PF 30 ML VIAL SUBQ ONE ×2 (13:16)
[2018-07-07] MEDS ORDERED: LACTATED RINGERS 1,000 ML IV ONE ×2 (13:19→14:24)
[2018-07-07] MEDS ORDERED: PROPOFOL 200 MG/20 ML VIAL IVP ONE (13:25)
[2018-07-07] MEDS ORDERED: ONDANSETRON 4 MG/2 ML VIAL IVP ONE (13:25)
[2018-07-07] MEDS ORDERED: LIDOCAINE-MPF 2% 5 ML VIAL IM ONE (13:25)
[2018-07-07] MEDS ORDERED: MIDAZOLAM 2 MG/2 ML VIAL IVP ONE (13:25)
[2018-07-07] MEDS ORDERED: DEXAMETHASONE 4 MG/ML VIAL IVP ONE (13:25)
[2018-07-07] MEDS ORDERED: ACETAMINOPHEN 1,000 MG/100 ML 100 ML IV ONE (13:25)
[2018-07-07] MEDS ORDERED: ROCURONIUM 50 MG/5 ML VIAL IVP ONE (13:25)
[2018-07-07] MEDS ORDERED: fentaNYL 250 MCG/5 ML VIAL IVP ONE (13:25)
[2018-07-07] MEDS ORDERED: MEPERIDINE 50 MG/ML VIAL ONE (14:18)
[2018-07-07] MEDS ORDERED: ONDANSETRON 4 MG/2 ML VIAL ONE (14:33)
[2018-07-07] MEDS ORDERED: fentaNYL 100 MCG/2 ML VIAL ONE (14:33)
[2018-07-07] MEDS ORDERED: ONDANSETRON 4 MG/2 ML VIAL IVP PRN (16:03)
[2018-07-07] MEDS ORDERED: SODIUM CHLORIDE FLUSH 0.9% 10 ML SYRINGE IVP PRN (16:04)
[2018-07-07] MEDS: oxyCODONE 5 MG TABLET PO PRN ×3 (16:18→23:54)
[2018-07-07] MEDS ORDERED: LACTATED RINGERS 1,000 ML IV SCH (17:00)
[2018-07-07] MEDS: HYDROmorphone 1 MG/ML CARPUJECT IVP PRN ×3 (17:56→22:35)
[2018-07-07 21:36] VITALS: BP 115/76
[2018-07-07] MEDS ORDERED: SODIUM CHLORIDE FLUSH 0.9% 10 ML SYRINGE IVP SCH (22:00)
--- NOTE | 2018-07-07 23:47 | OPERATIVE REPORT ---
DATE OF SERVICE: 07/07/2018 Physician: John Jorgensen MD PREOPERATIVE DIAGNOSIS: Right lower quadrant pain of unclear etiology. POSTOPERATIVE DIAGNOSIS: Right lower quadrant pain of unclear etiology. PROCEDURE PERFORMED: Diagnostic laparoscopy and appendectomy. ANESTHESIA: General endotracheal by Johan Buckley CRNA. SURGEON: John Jorgensen MD. ESTIMATED BLOOD LOSS: 10 mL COMPLICATIONS: None. FINDINGS: Laparoscopy revealed a normal-appearing right colon, sigmoid colon, appendix, terminal ile um, uterus and ovaries. Small cysts were present on both fallopian tubes. There was no evidence of endometriosis, inflammatory bowel disease, neoplasm, Meckel's diverticulum, diverticulitis, or append icitis. INDICATIONS: The patient is a 23-year-old with a 9-month history of chronic right lower quadrant molly n with intermittent severe exacerbation associated with nausea and vomiting. Extensive evaluation almendarez s been negative including a diagnostic pelvic laparoscopy, which was notable for 2 possible small imp lants of endometriosis. Because of continued symptoms and a concern for possible chronic or microsco pic appendicitis, the patient was advised to undergo diagnostic laparoscopy and appendectomy. TECHNIQUE: After informed consent, the patient was taken early this morning 1 day prior to her sched uled elective procedure. She developed another episode of severe pain associated with nausea and vom iting, presented to the emergency room, and it was decided to proceed with the surgery today. After informed consent, the patient was taken to the operating room and was placed under general endo tracheal anesthesia. Preoperative preparation included administration of 500 mg of metronidazole int ravenously and application of sequential calf compression boots. Her abdomen was prepared with Chlor aPrep solution and draped in the usual sterile fashion. Metronidazole was used for the prophylactic antibiotic because of a recent episode of Clostridium difficile infection, and then desired to reduce the risk of recurrence by avoiding the use of other antibiotic agents. The patient's abdomen was pr epped with ChloraPrep solution and draped in the usual sterile fashion. A transverse incision was ma de along the inferior edge of the umbilicus and carried down through the layers of abdominal wall unt il the peritoneum was identified and entered sharply. A 10 mm Tamiko cannula was inserted. Pneumope ritoneum was achieved with carbon dioxide. A 10 mm 30-degree Silvana telescope was inserted. Laparo scopy was carried out with findings noted above. A 5 mm port was placed in the lower midline and lef t lower quadrant. Instruments were passed. The appendix was exposed. It was seen to be in an intra peritoneal retrocecal location. Its mesentery ligated and divided with the LigaSure device, and then the appendix ligated and divided at its junction with the cecal base using the [address] apling device with 2 mm staple length. The appendix was placed in an organ retrieval bag, extracted and sent for pathologic evaluation. After hemostasis was assured and abdominal exploration being com pleted, the right lower quadrant was copiously irrigated with saline solution, following which instru ments and cannulas were removed under direct vision. Pneumoperitoneum was allowed to escape and the incisions were closed in layers using 0 Vicryl to reapproximate the midline fascia at the umbilicus, followed by 4-0 Monocryl subcuticular skin closure at all the port sites, followed by Dermabond. A t otal of 30 mL of 0.5% Marcaine with epinephrine was infiltrated into the incision to assist in postop erative analgesia. Anesthesia terminated and patient transferred to the recovery room in satisfactor y condition. Sponge and needle counts correct x2. No drains were used. TD: 07/07/2018 14:26
== END 2018-07-08 00:20 | disposition home or self-care (01) ==
LOC: ED 03:44 → SDS 09:01 → MS2 14:49 → SDS 07-08 00:20
PROVIDERS: ATTEND Internal Medicine Gastroenterology
PROC: 0DTJ4ZZ Resection of Appendix, Percutaneous Endoscopic Approach (ICD-10-PCS; principal; 2018-07-07 12:05)
DX: R10.31 Right lower quadrant pain (principal); N83.8 Other noninflammatory disorders of ovary, fallopian tube and broad ligament; R11.2 Nausea with vomiting, unspecified; F17.210 Nicotine dependence, cigarettes, uncomplicated
CPT/HCPCS: 36415; 44970; 80053; 81001; 83690; 84703; 85025; 96365; 96367; 96375; 99284; A9270; J0131; J1170; J1200; J2175; J3010; J7040; J7120; 81003; 87086

== ENCOUNTER 2018-11-21 22:30 | Emergency (ER) | payer OTHER ==
[2018-11-21 22:55] LABS: BILIRUBIN,URINE NEGATIVE (NEGATIVE); GLUCOSE, URINE (UA) NEGATIVE (NEGATIVE); KETONES,URINE (UA) NEGATIVE (NEGATIVE); LEUKOCYTE ESTERASE, URINE MODERATE (NEGATIVE); NITRITE,URINE NEGATIVE (NEGATIVE); OCCULT BLOOD,URINE LARGE (NEGATIVE); PROTEIN,URINE 30 mg/dL (NEGATIVE); UROBILINOGEN,URINE 0.2 (NORMAL) E.U./dL (NORMAL)
[2018-11-21 22:58] LABS: CLARITY,URINE HAZY (CLEAR); HCG UR QUAL NEGATIVE
[2018-11-21] MEDS ORDERED: PHENAZOPYRIDINE 100 MG TABLET PO STA (23:00)
[2018-11-21] MEDS ORDERED: ACETAMINOPHEN 325 MG TABLET PO STA (23:00)
[2018-11-21 23:13] LABS: BACTERIA,URINE Few /HPF (None Seen); SQUAMOUS EPITHELIAL CELL,UR RARE Squamous (<= Few)
--- NOTE | 2018-11-22 00:55 | ED Physician Documentation ---
PD HPI FEMALE - Stated complaint Stated Complaint: FEM /BK PX/NAUSEA - Chief complaint Chief Complaint: UTI - History obtained from History obtained from: Patient - History of Present Illness Timing - onset: Enter time (17:00), Today Timing - details: Abrupt onset Associated symptoms: Back pain, Dysuria, Urinary frequency, Hematuria. No: Fever Contributing factors: No: Recently seen: Not recently seen - Additional information Additional information: c/o midline/left parathoracic/upper lumbar back pain, urinary frequency, burning dysuria, hematuria, nausea and vomiting. symptoms worsening since 5 PM Review of Systems Constitutional: reports: Chills. denies: Fever, Sweats GI: reports: Nausea, Vomiting. denies: Abdominal Pain : reports: Dysuria, Frequency, Hematuria Musculoskeletal: reports: Back pain PD PAST MEDICAL HISTORY - Past Medical History Past Medical History: Yes Cardiovascular: None Respiratory: None Neuro: None Endocrine/Autoimmune: None GI: None SHRIMP BOAT CAPTAIN: Endometriosis : None HEENT: None Psych: None Musculoskeletal: None Derm: None - Past Surgical History Past Surgical History: Yes /SHRIMP BOAT CAPTAIN: Other HEENT: Tonsil/Adenoidectomy - Present Medications Home Medications: Ambulatory Orders Medication Instructions Recorded Confirmed Norethindrone-E.estradiol-Iron 1 tab ORAL 07/07/18 [Dsgxrp-Aenjda-Hp 1-0.02(85)-75] Ondansetron Odt [Zofran] 4 mg TL Q6H PRN #10 tablet 07/07/18 Oxycodone HCl/Acetaminophen 1 each PO Q6H PRN #15 tablet 07/07/18 [Percocet 5-325 mg Tablet] Amox/Clav 875/125 [Augmentin] 1 each PO Q12H #20 tablet 11/22/18 Hydrocodone/Acetaminophen 1 each PO Q6HR PRN #10 tablet 11/22/18 [Hydrocodone-Acetamin 5-325 mg] Ondansetron Odt [Zofran] 4 mg TL Q6H PRN #10 tablet 11/22/18 - Allergies Allergies/Adverse Reactions: Allergies Allergy/AdvReac Type Severity Reaction Status Date / Time Sulfa (Sulfonamide Allergy Unknown Verified 11/21/18 22:48 Antibiotics) - Social History Does the pt smoke?: No Smoking Status: Never smoker Does the pt drink ETOH?: Yes Does the pt have substance abuse?: No - Immunizations Immunizations are current?: Yes - POLST Patient has POLST: No POLST Status: Full Code PD ED PE NORMAL - Vitals Vital signs reviewed: Yes - General General: Alert and oriented X 3, Well developed/nourished, Other (appears uncomfortable during H+P (pain, nausea/dry heaves)) - HEENT HEENT: Moist mucous membranes - Cardiac Cardiac: RRR, No murmur - Respiratory Respiratory: No respiratory distress, Clear bilaterally - Abdomen Abdomen: Soft, Non tender - Back Back: Other (left CVA tenderness) Results - Vitals Vitals: Vital Signs - 24 hr 11/21/18 11/22/18 11/22/18 22:45 01:26 02:31 Temperature 36.9 C 36.6 C 36.5 C Heart Rate 94 74 65 Respiratory 16 17 14 Rate Blood Pressure 146/98 H 118/74 108/75 O2 Saturation 99 99 97 Oxygen O2 Source Room air - Labs Labs: Laboratory Tests 11/21/18 22:38 Urine Color RED/BLOODY Urine Clarity HAZY Urine pH 6.0 Ur Specific [place] 1.020 Urine Protein 30 H Urine Glucose (UA) NEGATIVE Urine Ketones NEGATIVE Urine Occult Blood LARGE H Urine Nitrite NEGATIVE Urine Bilirubin NEGATIVE Urine Urobilinogen 0.2 (NORMAL) Ur Leukocyte Esterase MODERATE H Urine RBC 6-10 H Urine WBC 11-25 H Ur Squamous Epith Cells RARE Squamous Urine Bacteria Few Ur Microscopic Review INDICATED Urine Culture Comments INDICATED Urine HCG, Qual NEGATIVE PD MEDICAL DECISION MAKING - ED course Complexity details: re-evaluated patient, considered differential, d/w patient ED course: After IV fluids, zofran, toradol, and rocephin, patient appears comfortable and reports significant improvement in both nausea and pain; she is comfortable with d/c home Departure - Departure Disposition: Home, Self Care Clinical Impression: Pyelonephritis Condition: Good Instructions: ED Kidney Infec Female Prescriptions: Hydrocodone/Acetaminophen [Hydrocodone-Acetamin 5-325 mg] 1 each PO Q6HR PRN #10 tablet PRN Reason: Pain Amox/Clav 875/125 [Augmentin] 1 each PO Q12H #20 tablet Ondansetron Odt [Zofran] 4 mg TL Q6H PRN #10 tablet PRN Reason: Nausea / Vomiting Discharge Date/Time: 11/22/18 02:50
[2018-11-22] MEDS ORDERED: ONDANSETRON 4 MG/2 ML VIAL IVP STA (01:04)
[2018-11-22] MEDS ORDERED: KETOROLAC 30 MG/ML VIAL IVP STA (01:04)
[2018-11-22] MEDS ORDERED: SODIUM CHLORIDE 0.9% 1,000 ML IV STA (01:04)
[2018-11-22] MEDS ORDERED: cefTRIAXone 1 GM VIAL IVP STA (01:04)
[2018-11-22] MEDS ORDERED: ONDANSETRON ODT 4 MG Prepack 2 TL STA (02:24)
[2018-11-22] MEDS ORDERED: HYDROcod/ACET 5/325 Prepack 4 PO STA (02:24)
[2018-11-22 02:31] VITALS: BP 108/75
== END 2018-11-22 02:50 | disposition home or self-care (01) ==
LOC: ED 22:30
DX: N12 Tubulo-interstitial nephritis, not specified as acute or chronic (principal)
CPT/HCPCS: 81001; 81025; 87086; 87181; 96361; 96374; 99283; 99284; A9270; 81003

== ENCOUNTER 2018-11-26 02:03 | Emergency (ER) | payer OTHER ==
[2018-11-26] MEDS ORDERED: IOVERSOL 320 100 ML VIAL IVP ONE ×3 (02:04→03:35)
[2018-11-26] MEDS ORDERED: ONDANSETRON 4 MG/2 ML VIAL IVP STA ×2 (02:14→04:30)
[2018-11-26] MEDS ORDERED: SODIUM CHLORIDE 0.9% 1,000 ML IV ONE ×2 (02:14)
[2018-11-26] MEDS ORDERED: KETOROLAC 30 MG/ML VIAL IVP STA (02:14)
[2018-11-26 02:39] LABS: BASOPHILS # (AUTO) 0.2 10^3/uL (0.0-0.1); BASOPHILS % (AUTO) 1.2 %; EOSINOPHILS # (AUTO) 0.1 10^3/uL (0.0-0.7); EOSINOPHILS % (AUTO) 0.9 %; HGB - HEMOGLOBIN 14.3 g/dL (12.0-16.0); LYMPHOCYTES # (AUTO) 4.8 10^3/uL (1.5-3.5); LYMPHOCYTES % (AUTO) 37.4 %; MEAN CORPUSCULAR HEMOGLOBIN 30.7 pg (27.0-31.0); MEAN CORPUSCULAR HGB CONC 34.3 g/dL (32.0-36.0); MEAN CORPUSCULAR VOLUME 89.6 fL (81.0-99.0); MEAN PLATELET VOLUME 7.4 fL (7.9-10.8); MONOCYTES % (AUTO) 7.8 %; NEUTROPHILS # (AUTO) 6.8 10^3/uL (1.5-6.6); NEUTROPHILS % (AUTO) 52.7 %; PLT - PLATELET COUNT 426 10^3/uL (130-450); RED BLOOD COUNT 4.66 10^6/uL (4.20-5.40); WHITE BLOOD COUNT 12.9 x10^3/uL (4.8-10.8)
--- NOTE | 2018-11-26 02:39 | ED Physician Documentation ---
History of Present Illness - Stated complaint Stated Complaint: NAUSEA,LT FLANK PAIN - Chief complaint Chief Complaint: General - History obtained from History obtained from: Patient - History of Present Illness Timing: How many days ago (several) Pain level max: 10 Pain level now: 10 - Additonal information Additional information: 23-year-old female with several days of left flank pain. Seen here recently and treated for possible pyelonephritis. She states she is not improving. No fevers. Is having nausea and vomiting however. Nothing makes the pain better or worse.Is having dysuria still. No vaginal bleeding or discharge. Is not Review of Systems Ten Systems: 10 systems reviewed and negative Constitutional: denies: Fever, Chills Nose: denies: Rhinorrhea / runny nose, Congestion Respiratory: denies: Cough GI: reports: Nausea, Vomiting. denies: Diarrhea Skin: denies: Rash PD PAST MEDICAL HISTORY - Past Medical History Cardiovascular: None Respiratory: None Neuro: None Endocrine/Autoimmune: None GI: None BAIL BOND AGENT: Endometriosis : None HEENT: None Psych: None Musculoskeletal: None Derm: None - Past Surgical History Past Surgical History: Yes /BAIL BOND AGENT: Other HEENT: Tonsil/Adenoidectomy - Present Medications Home Medications: Ambulatory Orders Medication Instructions Recorded Confirmed Norethindrone-E.estradiol-Iron 1 tab ORAL 07/07/18 [Udbkpe-[place]exa-Xp 1-0.02(10)-75] Ondansetron Odt [Zofran] 4 mg TL Q6H PRN #10 tablet 07/07/18 Oxycodone HCl/Acetaminophen 1 each PO Q6H PRN #15 tablet 07/07/18 [Percocet 5-325 mg Tablet] Amox/Clav 875/125 [Augmentin] 1 each PO Q12H #20 tablet 11/22/18 Hydrocodone/Acetaminophen 1 each PO Q6HR PRN #10 tablet 11/22/18 [Hydrocodone-Acetamin 5-325 mg] Ondansetron Odt [Zofran] 4 mg TL Q6H PRN #10 tablet 11/22/18 Ondansetron Odt [Zofran] 4 mg TL Q6H PRN #10 tablet 11/26/18 Oxycodone HCl/Acetaminophen 1 - 2 each PO Q6H PRN #10 tablet 02/12/19 [Percocet 5-325 mg Tablet] - Allergies Allergies/Adverse Reactions: Allergies Allergy/AdvReac Type Severity Reaction Status Date / Time Sulfa (Sulfonamide Allergy Unknown Verified 11/21/18 22:48 Antibiotics) - Social History Does the pt smoke?: No Smoking Status: Never smoker Does the pt drink ETOH?: Yes Does the pt have substance abuse?: No - Immunizations Immunizations are current?: Yes - POLST Patient has POLST: No POLST Status: Full Code PD ED PE NORMAL - Vitals Vital signs reviewed: Yes - General General: Alert and oriented X 3, No acute distress, Well developed/nourished - HEENT HEENT: PERRL, Moist mucous membranes - Neck Neck: Supple, no meningeal sign - Cardiac Cardiac: RRR, Strong equal pulses - Respiratory Respiratory: No respiratory distress, Clear bilaterally - Abdomen Abdomen: Soft, Non tender, Non distended - Back Back: No spinal TTP, Other (L CVAT) - Derm Derm: Warm and dry - Neuro Neuro: Alert and oriented X 3 - Psych Psych: Normal mood, Normal affect Results - Vitals Vitals: Vital Signs - 24 hr 11/26/18 11/26/18 02:11 05:39 Temperature 36.7 C Heart Rate 101 H 95 Respiratory 20 18 Rate Blood Pressure 172/90 H 128/77 O2 Saturation 100 100 Oxygen O2 Source Room air - Labs Labs: Laboratory Tests 11/26/18 11/26/18 11/26/18 02:20 02:20 03:35 WBC 12.9 H RBC 4.66 Hgb 14.3 Hct 41.7 MCV 89.6 MCH 30.7 MCHC 34.3 RDW 14.0 Plt Count 426 MPV 7.4 L Neut # (Auto) 6.8 H Lymph # (Auto) 4.8 H [place] # (Auto) 1.0 Eos # (Auto) 0.1 Baso # (Auto) 0.2 H Absolute Nucleated RBC 0.00 Nucleated RBC % 0.0 Sodium 138 Potassium 2.9 L Chloride 104 Carbon Dioxide 20 L Anion Gap 14.0 H BUN 13 Creatinine 0.8 Estimated GFR (MDRD) 89 Glucose 109 H Calcium 9.3 Total Bilirubin 0.5 AST 32 ALT 24 Alkaline Phosphatase 86 Total Protein 7.9 Albumin 4.2 Globulin 3.7 Albumin/Globulin Ratio 1.1 Lipase 33 Urine Color STRAW Urine Clarity HAZY Urine pH 6.5 Ur Specific [place] <=1.005 Urine Protein NEGATIVE Urine Glucose (UA) NEGATIVE Urine Ketones NEGATIVE Urine Occult Blood NEGATIVE Urine Nitrite NEGATIVE Urine Bilirubin NEGATIVE Urine Urobilinogen 0.2 (NORMAL) Ur Leukocyte Esterase SMALL H Urine RBC None Seen Urine WBC 0-3 Ur Squamous Epith Cells MANY Squamous H Urine Bacteria None Seen Ur Microscopic Review INDICATED Urine Culture Comments NOT INDICATED Urine HCG, Qual NEGATIVE - Rads (name of study) CT abd/pelvis Radiology: Prelim report reviewed, EMP read contemporaneously, See rad report (No acute abnormality) PD MEDICAL DECISION MAKING - ED course Complexity details: reviewed results, re-evaluated patient, considered differential, d/w patient ED course: 23-year-old female presents the emergency department left flank pain, likely residual from pyelonephritis recently. Pain well controlled in the emergency department and she is tolerating p.o. without difficulty. Will prescribe nausea medications and pain medications for home. We will have her continue her antibiotics. Urine cultures were checked and should be sensitive to this. Her urine is clear today as well. Patient counseled regarding signs and symptoms for which I believe and urgent re-evaluation would be necessary. Patient with good understanding of and agreement to plan and is comfortable going home at this time This document was made in part using voice recognition software. While efforts are made to proofread this document, sound alike and grammatical errors may occur. Departure - Departure Disposition: 01 Home, Self Care Clinical Impression: Pyelonephritis Condition: Good Instructions: ED Kidney Infec Female Follow-Up: your,doctor in 3 days for repeat evaluation [Other] Prescriptions: Ondansetron Odt [Zofran] 4 mg TL Q6H PRN #10 tablet PRN Reason: Nausea / Vomiting Oxycodone HCl/Acetaminophen [Percocet 5-325 mg Tablet] 1 - 2 each PO Q6H PRN #10 tablet PRN Reason: pain Comments: Continue your antibiotics at home. Return if you worsen. This should improve over the next 24-36 hours. Do not drink alcohol or drive while on narcotic pain medicine. Note that many narcotic pain relievers also contain tylenol/acetaminophen. Please ensure that your total dose of acetaminophen from all sources does not exceed 3 grams (3000mg) per day. You may constipated on this medication, take a stool softener such as "Colace" twice a day while you are on it. Also recommend a gdpr-tyy-mnzbart laxative such as senna or MiraLAX any day that you do not have a bowel movement. If you received narcotic pain medication in the emergency department, do not drive or operate machinery for the next 24 hours. Discharge Date/Time: 11/26/18 05:39
[2018-11-26 02:45] LABS: ALBUMIN 4.2 g/dL (3.2-5.5); ALBUMIN/GLOBULIN RATIO 1.1 (1.0-2.2); BILIRUBIN,TOTAL 0.5 mg/dL (0.2-1.0); CALCIUM 9.3 mg/dL (8.5-10.3); CREATININE 0.8 mg/dL (0.4-1.0); TOTAL PROTEIN 7.9 g/dL (6.7-8.2)
[2018-11-26] MEDS ORDERED: HYDROmorphone 1 MG/ML CARPUJECT IVP STA ×2 (02:52→04:21)
[2018-11-26 03:51] LABS: BILIRUBIN,URINE NEGATIVE (NEGATIVE); GLUCOSE, URINE (UA) NEGATIVE (NEGATIVE); KETONES,URINE (UA) NEGATIVE (NEGATIVE); LEUKOCYTE ESTERASE, URINE SMALL (NEGATIVE); NITRITE,URINE NEGATIVE (NEGATIVE); OCCULT BLOOD,URINE NEGATIVE (NEGATIVE); PH,URINE 6.5 PH (5.0-7.5); PROTEIN,URINE NEGATIVE (NEGATIVE); UROBILINOGEN,URINE 0.2 (NORMAL) E.U./dL (NORMAL)
[2018-11-26 03:52] LABS: CLARITY,URINE HAZY (CLEAR); HCG UR QUAL NEGATIVE
--- NOTE | 2018-11-26 04:03 | CT Report ---
Reason: L flank pain, not improved with abx. Procedure Date: 11/26/2018 Accession Number: [id number] / [id number] Procedure: CT - Abdomen/Pelvis W/ CPT Code: FULL RESULT: EXAM: CT ABDOMEN AND PELVIS EXAM DATE: 11/26/2018 03:36 AM. CLINICAL HISTORY: L flank pain, not improved with abx. COMPARISONS: ABDOMEN/PELVIS W/ 06/13/2018 2:26 AM. TECHNIQUE: Routine helical CT imaging was performed through the abdomen and pelvis. IV contrast: 80ML [id number]. Enteric contrast: No. Reconstructions: Coronal and sagittal. In accordance with CT protocol optimization, one or more of the following dose reduction techniques were utilized for this exam: automated exposure control, adjustment of mA and/or KV based on patient size, or use of iterative reconstructive technique. FINDINGS: Lung Bases: Unremarkable. Liver: Normal. No masses. Gallbladder/Bile Ducts: Unremarkable. Spleen: Normal. Pancreas: Normal. Adrenal Glands: Normal. Kidneys: Normal. No masses or hydronephrosis. Peritoneal Cavity/Bowel: Normal. No free fluid, free air or adenopathy. No masses or acute inflammatory process. The appendix is well visualized and normal. Pelvic Organs: Normal. The bladder and visualized pelvic organs are within normal limits. Vasculature: No aneurysms or other significant abnormality. Bones: No significant abnormality. Other: None. IMPRESSION: 1. Negative CT scan abdomen and pelvis. No findings to explain clinical symptoms. RADIA
[2018-11-26 04:06] LABS: BACTERIA,URINE None Seen /HPF (None Seen); RBC,URINE None Seen /HPF (0-5); SQUAMOUS EPITHELIAL CELL,UR MANY Squamous (<= Few)
[2018-11-26] MEDS ORDERED: POTASSIUM BICARB 25 MEQ TABLET PO STA (04:17)
[2018-11-26] MEDS ORDERED: oxyCODONE 5 MG TABLET PO STA (04:21)
[2018-11-26 05:39] VITALS: BP 128/77
== END 2018-11-26 05:39 | disposition home or self-care (01) ==
LOC: ED 02:03
DX: N12 Tubulo-interstitial nephritis, not specified as acute or chronic (principal)
CPT/HCPCS: 36415; 74177; 80053; 81001; 81025; 83690; 85025; 96361; 96374; 96375; 96376; 99283; A9270; J1170; Q9967; 81003; 87086

== ENCOUNTER 2019-01-22 22:36 | Emergency (ER) | payer OTHER ==
[2019-01-22 22:54] LABS: BILIRUBIN,URINE NEGATIVE (NEGATIVE); GLUCOSE, URINE (UA) 500 mg/dL (NEGATIVE); KETONES,URINE (UA) NEGATIVE (NEGATIVE); LEUKOCYTE ESTERASE, URINE NEGATIVE (NEGATIVE); NITRITE,URINE POSITIVE (NEGATIVE); OCCULT BLOOD,URINE TRACE-LYSE (NEGATIVE); PH,URINE 5.5 PH (5.0-7.5); PROTEIN,URINE NEGATIVE (NEGATIVE); UROBILINOGEN,URINE 0.2 (NORMAL) E.U./dL (NORMAL)
--- NOTE | 2019-01-22 22:54 | ED Physician Documentation ---
PD HPI BACK PAIN - Stated complaint Stated Complaint: BACK PAIN - Chief complaint Chief Complaint: Back Pain - History obtained from History obtained from: Patient - History of Present Illness Timing - onset: Yesterday Timing - details: Gradual onset Pain level now: 7 Location: Left Quality: Pain, Similar to prior episodes Associated symptoms: Hematuria. No: Fever Improves with: Nothing Similar symptoms before: Diagnosis (similar to previous pyelonephritis) Recently seen: Emergency Dept (T+R from this ED twice in November for similar symptoms) - Additional information Additional information: since yesterday, increasing burning dysuria which is similar to previous UTI. Patient says she went to [facility] this morning and was told there were no appointments available and to return tomorrow. She says she was told to go to the ED if symptoms worsened, and she has since developed left flank and left back pain, nausea and vomiting, and hematuria. Review of Systems Constitutional: denies: Fever GI: reports: Nausea, Vomiting. 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 : None HEENT: None Psych: None Musculoskeletal: None Derm: None - Past Surgical History Past Surgical History: Yes /CALCINER OPERATOR: Other HEENT: Tonsil/Adenoidectomy - Present Medications Home Medications: Ambulatory Orders Medication Instructions Recorded Confirmed Norethindrone-E.estradiol-Iron 1 tab ORAL 07/07/18 [Wxxjhn-Sphqqc-Kl 1-0.02(50)-75] Amox/Clav 875/125 [Augmentin] 1 each PO Q12H #14 tablet 01/23/19 Ondansetron Odt [Zofran] 4 mg TL Q6H PRN #14 tablet 01/23/19 - Allergies Allergies/Adverse Reactions: Allergies Allergy/AdvReac Type Severity Reaction Status Date / Time Sulfa (Sulfonamide Allergy Unknown Verified 11/21/18 22:48 Antibiotics) - Social History Does the pt smoke?: No Smoking Status: Never smoker Does the pt drink ETOH?: Yes Does the pt have substance abuse?: No - Immunizations Immunizations are current?: Yes - POLST Patient has POLST: No POLST Status: Full Code PD ED PE NORMAL - Vitals Vital signs reviewed: Yes - General General: Alert and oriented X 3, No acute distress, Well developed/nourished - HEENT HEENT: Moist mucous membranes - Cardiac Cardiac: RRR, No murmur - Abdomen Abdomen: Soft, Non tender - Back Back: Other (mild left CVA tenderness) Results - Vitals Vitals: Vital Signs - 24 hr 01/22/19 01/22/19 22:48 22:49 Temperature 35.6 C L Heart Rate 95 76 Respiratory 19 18 Rate Blood Pressure 149/82 H 125/80 O2 Saturation 99 100 Oxygen O2 Source Room air - Labs Labs: Microbiology 01/22/19 22:46 Urine Culture - Preliminary Urine,Clean Catch CULTURE IN PROGRESS. RESULTS TO FOLLOW. Laboratory Tests 01/22/19 01/22/19 01/22/19 22:46 22:46 23:25 WBC 11.8 H RBC 4.62 Hgb 13.9 Hct 41.3 MCV 89.5 MCH 30.0 MCHC 33.5 RDW 13.9 Plt Count 389 MPV 7.3 L Neut # (Auto) 7.3 H Lymph # (Auto) 3.6 H [place] # (Auto) 0.8 Eos # (Auto) 0.1 Baso # (Auto) 0.1 Absolute Nucleated RBC 0.00 Nucleated RBC % 0.0 Sodium Potassium Chloride Carbon Dioxide Anion Gap BUN Creatinine Estimated GFR (MDRD) Glucose Calcium Total Bilirubin AST ALT Alkaline Phosphatase Total Protein Albumin Globulin Albumin/Globulin Ratio Lipase Urine Color LT RED Urine Clarity CLEAR Urine pH 5.5 Ur Specific [place] 1.020 1.020 Urine Protein NEGATIVE Urine Glucose (UA) 500 H Urine Ketones NEGATIVE Urine Occult Blood TRACE-LYSE Urine Nitrite POSITIVE H Urine Bilirubin NEGATIVE Urine Urobilinogen 0.2 (NORMAL) Ur Leukocyte Esterase NEGATIVE Urine RBC 0-5 Urine WBC 0-3 Ur Squamous Epith Cells FEW Squamous Urine Bacteria Few Ur Microscopic Review INDICATED Urine Culture Comments INDICATED Urine HCG, Qual NEGATIVE 01/22/19 23:25 WBC RBC Hgb Hct MCV MCH MCHC RDW Plt Count MPV Neut # (Auto) Lymph # (Auto) [place] # (Auto) Eos # (Auto) Baso # (Auto) Absolute Nucleated RBC Nucleated RBC % Sodium 137 Potassium 3.4 L Chloride 105 Carbon Dioxide 22 Anion Gap 10.0 BUN 12 Creatinine 0.8 Estimated GFR (MDRD) 89 Glucose 104 H Calcium 9.3 Total Bilirubin 0.6 AST 27 ALT 24 Alkaline Phosphatase 88 Total Protein 7.6 Albumin 3.9 Globulin 3.7 Albumin/Globulin Ratio 1.1 Lipase 33 Urine Color Urine Clarity Urine pH Ur Specific [place] Urine Protein Urine Glucose (UA) Urine Ketones Urine Occult Blood Urine Nitrite Urine Bilirubin Urine Urobilinogen Ur Leukocyte Esterase Urine RBC Urine WBC Ur Squamous Epith Cells Urine Bacteria Ur Microscopic Review Urine Culture Comments Urine HCG, Qual PD MEDICAL DECISION MAKING - ED course Complexity details: reviewed old records, reviewed results, re-evaluated patient, considered differential, d/w patient Departure - Departure Disposition: Home, Self Care Clinical Impression: Flank pain UTI (urinary tract infection) Qualifiers: Urinary tract infection type: acute cystitis Hematuria presence: without hematuria Qualified Code(s): N30.00 - Acute cystitis without hematuria Condition: Good Instructions: ED UTI Cystitis Female Follow-Up: [facility] [Provider Group] Prescriptions: Amox/Clav 875/125 [Augmentin] 1 each PO Q12H #14 tablet Ondansetron Odt [Zofran] 4 mg TL Q6H PRN #14 tablet PRN Reason: Nausea / Vomiting Discharge Date/Time: 01/23/19 00:50
[2019-01-22 22:57] LABS: HCG UR QUAL NEGATIVE
[2019-01-22 23:00] LABS: BACTERIA,URINE Few /HPF (None Seen); CLARITY,URINE CLEAR (CLEAR); RBC,URINE 0-5 /HPF (0-5); SQUAMOUS EPITHELIAL CELL,UR FEW Squamous (<= Few)
[2019-01-22] MEDS ORDERED: KETOROLAC 30 MG/ML VIAL IVP STA (23:14)
[2019-01-22] MEDS ORDERED: ONDANSETRON 4 MG/2 ML VIAL IVP STA (23:14)
[2019-01-22] MEDS ORDERED: SODIUM CHLORIDE 0.9% 1,000 ML IV STA (23:14)
[2019-01-22 23:35] LABS: BASOPHILS # (AUTO) 0.1 10^3/uL (0.0-0.1); BASOPHILS % (AUTO) 1.1 %; EOSINOPHILS # (AUTO) 0.1 10^3/uL (0.0-0.7); EOSINOPHILS % (AUTO) 0.6 %; HGB - HEMOGLOBIN 13.9 g/dL (12.0-16.0); LYMPHOCYTES # (AUTO) 3.6 10^3/uL (1.5-3.5); LYMPHOCYTES % (AUTO) 30.2 %; MEAN CORPUSCULAR HGB CONC 33.5 g/dL (32.0-36.0); MEAN CORPUSCULAR VOLUME 89.5 fL (81.0-99.0); MEAN PLATELET VOLUME 7.3 fL (7.9-10.8); MONOCYTES # (AUTO) 0.8 10^3/uL (0.0-1.0); MONOCYTES % (AUTO) 6.4 %; NEUTROPHILS # (AUTO) 7.3 10^3/uL (1.5-6.6); NEUTROPHILS % (AUTO) 61.7 %; PLT - PLATELET COUNT 389 10^3/uL (130-450); RED BLOOD COUNT 4.62 10^6/uL (4.20-5.40); RED CELL DISTRIBUTION WIDTH 13.9 % (12.0-15.0); WHITE BLOOD COUNT 11.8 x10^3/uL (4.8-10.8)
[2019-01-22 23:50] LABS: ALBUMIN 3.9 g/dL (3.2-5.5); ALBUMIN/GLOBULIN RATIO 1.1 (1.0-2.2); BILIRUBIN,TOTAL 0.6 mg/dL (0.2-1.0); CALCIUM 9.3 mg/dL (8.5-10.3); CREATININE 0.8 mg/dL (0.4-1.0); TOTAL PROTEIN 7.6 g/dL (6.7-8.2)
[2019-01-23] MEDS ORDERED: cefTRIAXone 1 GM in SODIUM CHLORIDE 0.9% MINIBAG 100 ML IV STA (00:28)
[2019-01-23] MEDS ORDERED: cefTRIAXone 1 GM VIAL ONE (00:37)
[2019-01-23] MEDS ORDERED: cefTRIAXone 1 GM VIAL IVP STA (00:46)
[2019-01-23 00:50] VITALS: BP 125/80
== END 2019-01-23 00:50 | disposition home or self-care (01) ==
LOC: ED 22:36
DX: N30.00 Acute cystitis without hematuria (principal)
CPT/HCPCS: 36415; 80053; 81001; 81003; 81025; 83690; 85025; 87086; 96361; 96374; 96375; 99283

== ENCOUNTER 2019-03-21 07:50 | Outpatient (CLI) | payer OTHER ==
[~2019-03-21 07:50] MED LIST: GADOBUTROL 10 MMOL/10 ML VIAL ONE
[2019-03-21] MEDS: GADOBUTROL 10 MMOL/10 ML VIAL IVP ONE (09:51)
--- NOTE | 2019-03-21 10:20 | MRI Report ---
Reason: HEMIPELGIC MIGRAINE,NOT INTRACTABLE,WITHOUT STATUS Procedure Date: 03/21/2019 Accession Number: [id number] / [id number] Procedure: MRI - Angio Brain W/O (MRA) CPT Code: FULL RESULT: EXAM MRA BRAIN EXAM DATE: 03/21/2019 10:00 AM. CLINICAL HISTORY: Migraines. Fainting spell. COMPARISON: None. TECHNIQUE: Multiplanar, multisequence MRA sequences of the brain were performed. Other: None. Post-processing: Multiplanar 3D MIP reconstructions. IV Contrast: None. FINDINGS: RIGHT Internal Carotid (ICA): No aneurysm, stenosis or anomaly. Middle Cerebral (MCA): No aneurysm, stenosis or anomaly. Anterior Cerebral (CHARLENE): No aneurysm, stenosis or anomaly. Posterior Cerebral (DIGITAL CAMPAIGN MANAGER): No aneurysm, stenosis or anomaly. Posterior Communicating (P-COM): No aneurysm, stenosis or anomaly. Vertebral: No aneurysm, stenosis or anomaly in the visualized upper vertebral artery. LEFT Internal Carotid (ICA): No aneurysm, stenosis or anomaly. Middle Cerebral (MCA): No aneurysm, stenosis or anomaly. Anterior Cerebral (CHARLENE): No aneurysm, stenosis or anomaly. Posterior Cerebral (DIGITAL CAMPAIGN MANAGER): No aneurysm, stenosis or anomaly. Vertebral: No aneurysm, stenosis or anomaly in the visualized upper vertebral artery. MIDLINE Anterior Communicating (A-COM): Not visualized. Basilar Artery:No aneurysm, stenosis or anomaly. Other: None. IMPRESSION: 1. Normal brain MRA. No stenoses or aneurysms. RADIA
--- NOTE | 2019-03-21 10:52 | MRI Report ---
Reason: HEMIPELGIC MIGRAINE,NOT INTRACTABLE,WITHOUT STATUS Procedure Date: 03/21/2019 Accession Number: [id number] / [id number] Procedure: MRI - Brain W/WO CPT Code: FULL RESULT: EXAM: MRI BRAIN WITHOUT AND WITH CONTRAST EXAM DATE: 03/21/2019 10:01 AM. CLINICAL HISTORY: Fainting spell. Migraines. COMPARISON: None. TECHNIQUE: Multiplanar, multisequence T1-weighted and fluid-sensitive MR sequences of the brain were performed. Sequences optimized for routine evaluation. Other: None. IV Contrast: 8 mL Gadavist. FINDINGS: Brain Volume: Normal for age. Parenchyma: No acute hemorrhage, mass, or infarct. No white matter lesions identified. No abnormal enhancement. Ventricles/Cisterns: No hydrocephalus. No abnormal extra-axial fluid collection or hemorrhage. Orbits: Symmetric and unremarkable. Sella Turcica: The pituitary gland, cavernous sinuses, suprasellar cistern and optic chiasm are unremarkable. IAC: Symmetric and unremarkable. Vasculature: Normal signal flow void is seen in the major arterial structures at the skull base. The dural sinuses are patent and enhance normally. Sinuses: Minimal paranasal sinus mucosal thickening. Small retention cyst at the floor of the left axillary sinus. Patchy and confluent T2 hyperintense signal within the right inferior mastoid air cells. Bones: No focal pathologic appearing marrow signal changes. Other: None. IMPRESSION: 1. No acute intracranial abnormality or enhancing mass. Normal MRI appearance of the brain. 2. Paranasal sinus mucosal thickening, left maxillary retention cyst and inferior right mastoid fluid signal. RADIA
== END 2019-03-21 07:51 | disposition home or self-care (01) ==
LOC: DI 07:50
PROVIDERS: ATTEND General Practice
DX: G43.409 Hemiplegic migraine, not intractable, without status migrainosus (principal)
CPT/HCPCS: 70544; 70553; A9585

== ENCOUNTER 2019-06-21 02:28 | Emergency (ER) | payer OTHER ==
[2019-06-21] MEDS ORDERED: KETOROLAC 30 MG/ML VIAL IVP STA (02:59)
[2019-06-21] MEDS ORDERED: DEXAMETHASONE 10 MG/ML VIAL IVP STA (02:59)
[2019-06-21] MEDS ORDERED: diphenhydrAMINE INJ 50 MG/ML VIAL IVP STA (02:59)
[2019-06-21] MEDS ORDERED: SODIUM CHLORIDE 0.9% 1,000 ML IV ONE ×2 (02:59→05:50)
[2019-06-21] MEDS ORDERED: PROCHLORPERAZINE 10 MG/2 ML VIAL IVP STA (02:59)
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
[2019-06-21] MEDS ORDERED: HYDROmorphone 1 MG/ML CARPUJECT IVP STA ×2 (04:54→06:05)
[2019-06-21] MEDS ORDERED: ONDANSETRON 4 MG/2 ML VIAL IVP STA (04:54)
[2019-06-21] MEDS ORDERED: LORazepam 2 MG/ML VIAL IVP STA (06:05)
[2019-06-21] MEDS ORDERED: HALOPERIDOL 5 MG/ML VIAL IVP ONE (07:11)
[2019-06-21 08:55] VITALS: BP 133/80
[2019-06-21] MEDS ORDERED: ONDANSETRON ODT 4 MG TABLET TL STA (08:55)
== END 2019-06-21 09:06 | disposition home or self-care (01) ==
LOC: ED 02:28
DX: G43.409 Hemiplegic migraine, not intractable, without status migrainosus (principal)
CPT/HCPCS: 96361; 96374; 96375; 99284; 99285; J1170; J1200; J2060; Q0162

== ENCOUNTER 2019-07-05 02:29 | Emergency (ER) | payer OTHER ==
[2019-07-05] MEDS ORDERED: HALOPERIDOL 5 MG/ML VIAL IVP STA (02:59)
[2019-07-05] MEDS ORDERED: HYDROmorphone 1 MG/ML CARPUJECT IVP STA (02:59)
[2019-07-05] MEDS ORDERED: diphenhydrAMINE INJ 50 MG/ML VIAL IVP STA (03:00)
[2019-07-05] MEDS ORDERED: SODIUM CHLORIDE 0.9% 1,000 ML IV ONE (03:00)
[2019-07-05 03:03] LABS: BASOPHILS # (AUTO) 0.1 10^3/uL (0.0-0.1); BASOPHILS % (AUTO) 0.8 %; EOSINOPHILS # (AUTO) 0.1 10^3/uL (0.0-0.7); EOSINOPHILS % (AUTO) 0.8 %; HGB - HEMOGLOBIN 13.5 g/dL (12.0-16.0); LYMPHOCYTES # (AUTO) 3.5 10^3/uL (1.5-3.5); LYMPHOCYTES % (AUTO) 32.1 %; MEAN CORPUSCULAR HEMOGLOBIN 31.6 pg (27.0-31.0); MEAN CORPUSCULAR HGB CONC 35.1 g/dL (32.0-36.0); MEAN CORPUSCULAR VOLUME 90.2 fL (81.0-99.0); MEAN PLATELET VOLUME 8.8 fL (7.9-10.8); MONOCYTES # (AUTO) 0.7 10^3/uL (0.0-1.0); MONOCYTES % (AUTO) 6.2 %; NEUTROPHILS # (AUTO) 6.5 10^3/uL (1.5-6.6); NEUTROPHILS % (AUTO) 59.3 %; PLT - PLATELET COUNT 361 10^3/uL (130-450); RED BLOOD COUNT 4.27 10^6/uL (4.20-5.40); RED CELL DISTRIBUTION WIDTH 12.6 % (12.0-15.0); WHITE BLOOD COUNT 10.9 x10^3/uL (4.8-10.8)
[2019-07-05 03:17] LABS: ALBUMIN 4.1 g/dL (3.2-5.5); ALBUMIN/GLOBULIN RATIO 1.2 (1.0-2.2); BILIRUBIN,TOTAL 0.5 mg/dL (0.2-1.0); CALCIUM 8.8 mg/dL (8.5-10.3); CREATININE 0.7 mg/dL (0.4-1.0); TOTAL PROTEIN 7.6 g/dL (6.7-8.2)
--- NOTE | 2019-07-05 03:24 | ED Physician Documentation ---
History of Present Illness - Stated complaint Stated Complaint: ABD PX/LEFT SIDE NUMB/FRAIRE - Chief complaint Chief Complaint: Neuro - History obtained from History obtained from: Patient, Friend - History of Present Illness Timing: Yesterday Pain level max: 10 Pain level now: 10 - Additonal information Additional information: 24-year-old female with chronic abdominal pain secondary to endometriosis. She states worsening pain since yesterday. Took Naprosyn, Benadryl and "something like Phenergan" without relief. She also has chronic migraine headaches with which she gets left-sided hemiparesis. She is awaiting neurology referral as well as SUPPLY TECHNICIAN referral from her primary. Patient was seen here recently for same. Headache is holoacranial. Throbbing. Nothing makes it better or worse. The abdominal pain is suprapubic and right lower quadrant. Nothing makes it better or worse. States that this is typical of her endometriosis pain Review of Systems Ten Systems: 10 systems reviewed and negative Constitutional: denies: Fever, Chills Nose: denies: Rhinorrhea / runny nose, Congestion Throat: denies: Sore throat Cardiac: denies: Chest pain / pressure Respiratory: denies: Cough GI: denies: Vomiting, Diarrhea, Hematemesis : denies: Dysuria, Frequency, Hesitancy, Discharge, Now EGA Skin: denies: Rash Musculoskeletal: denies: Neck pain, Back pain Neurologic: denies: Focal weakness, Numbness, Seizure, Confused, Head injury, LOC PD PAST MEDICAL HISTORY - Past Medical History Cardiovascular: None Respiratory: None Neuro: Headaches Endocrine/Autoimmune: None GI: None SUPPLY TECHNICIAN: Endometriosis : None HEENT: None Psych: Anxiety Musculoskeletal: None Derm: None - Past Surgical History Past Surgical History: Yes /SUPPLY TECHNICIAN: Other HEENT: Tonsil/Adenoidectomy - Present Medications Home Medications: Ambulatory Orders Medication Instructions Recorded Confirmed Norethindrone-E.estradiol-Iron 1 tab ORAL 07/07/18 [Dijyws-Dgsday-Vj 1-0.02(39)-75] Amox/Clav 875/125 [Augmentin] 1 each PO Q12H #14 tablet 01/23/19 Ondansetron Odt [Zofran] 4 mg TL Q6H PRN #14 tablet 01/23/19 - Allergies Allergies/Adverse Reactions: Allergies Allergy/AdvReac Type Severity Reaction Status Date / Time Sulfa (Sulfonamide Allergy Unknown Verified 06/21/19 02:45 Antibiotics) propranolol AdvReac Unknown Verified 06/21/19 03:22 - Social History Does the pt smoke?: No Smoking Status: Never smoker Does the pt drink ETOH?: Yes Does the pt have substance abuse?: No - Immunizations Immunizations are current?: Yes - POLST Patient has POLST: No POLST Status: Full Code PD ED PE NORMAL - Vitals Vital signs reviewed: Yes - General General: Alert and oriented X 3, Well developed/nourished, Other (appears uncomfortable) - HEENT HEENT: PERRL, Moist mucous membranes, Pharynx benign - Neck Neck: Supple, no meningeal sign - Cardiac Cardiac: RRR, Strong equal pulses - Respiratory Respiratory: No respiratory distress, Clear bilaterally - Abdomen Abdomen: Soft, Non distended, Other (mild diffuse TTP. 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, No sensory deficit, Other (L sided hemiparesis) Eye Opening: Spontaneous Motor: Obeys Commands Verbal: Oriented GCS Score: 15 - Psych Psych: Normal mood, Normal affect Results - Vitals Vitals: Vital Signs - 24 hr 07/05/19 07/05/19 07/05/19 02:36 03:35 04:06 Temperature 36.6 C Heart Rate 91 84 75 Respiratory 17 17 17 Rate Blood Pressure 129/80 127/79 123/83 H O2 Saturation 97 97 98 Oxygen O2 Source Room air - Labs Labs: Laboratory Tests 07/05/19 07/05/19 02:56 02:56 WBC 10.9 H RBC 4.27 Hgb 13.5 Hct 38.5 MCV 90.2 MCH 31.6 H MCHC 35.1 RDW 12.6 Plt Count 361 MPV 8.8 Neut # (Auto) 6.5 Lymph # (Auto) 3.5 [place] # (Auto) 0.7 Eos # (Auto) 0.1 Baso # (Auto) 0.1 Absolute Nucleated RBC 0.00 Nucleated RBC % 0.0 Sodium 140 Potassium 3.9 Chloride 107 Carbon Dioxide 22 Anion Gap 11.0 BUN 9 Creatinine 0.7 Estimated GFR (MDRD) 103 Glucose 104 H Calcium 8.8 Total Bilirubin 0.5 AST 19 ALT 19 Alkaline Phosphatase 67 Total Protein 7.6 Albumin 4.1 Globulin 3.5 Albumin/Globulin Ratio 1.2 Lipase 30 PD MEDICAL DECISION MAKING - ED course Complexity details: reviewed old records, reviewed results, re-evaluated patient, considered differential, d/w patient ED course: Symptoms resolved with Haldol, Benadryl and 1 mg of Dilaudid. Feels much better and request to go home at this time. Patient is well-appearing, nontoxic. Afebrile. Symptoms are chronic. Patient counseled regarding signs and symptoms for which I believe and urgent re-evaluation would be necessary. Patient with good understanding of and agreement to plan and is comfortable going home at this time This document was made in part using voice recognition software. While efforts a re made to proofread this document, sound alike and grammatical errors may occur. Departure - Departure Disposition: 01 Home, Self Care Clinical Impression: Hemiplegic migraine Qualifiers: Status migrainosus presence: without status migrainosus Intractability: not intractable Qualified Code(s): G43.409 - Hemiplegic migraine, not intractable, without status migrainosus Abdominal pain Qualifiers: Abdominal location: unspecified location Qualified Code(s): R10.9 - Unspecified abdominal pain Condition: Good Instructions: ED Abdominal Pain Unkn Cause, ED Headache Migraine Follow-Up: DENA GREENE MD [Primary Care Provider] - Within 3 Days Comments: Follow-up with your doctor for further care. Go home and rest. Return if you worsen
[2019-07-05] MEDS ORDERED: ONDANSETRON 4 MG/2 ML VIAL IVP STA (05:07)
[2019-07-05 05:27] VITALS: BP 119/87
== END 2019-07-05 06:01 | disposition home or self-care (01) ==
LOC: ED 02:29
DX: G43.409 Hemiplegic migraine, not intractable, without status migrainosus (principal); R10.31 Right lower quadrant pain; N80.9 Endometriosis, unspecified
CPT/HCPCS: 36415; 80053; 83690; 85025; 96361; 96374; 96375; 99284; 99285; J1170; J1200

== ENCOUNTER 2019-07-09 21:22 | Emergency (ER) | payer OTHER ==
[2019-07-09] MEDS ORDERED: PROMETHAZINE INJ 12.5 MG in SODIUM CHLORIDE 0.9% 50 ML IV STA (21:47)
[2019-07-09] MEDS ORDERED: SODIUM CHLORIDE 0.9% 1,000 ML IV ONE (21:47)
[2019-07-09] MEDS ORDERED: diphenhydrAMINE INJ 50 MG/ML VIAL IVP STA (21:48)
[2019-07-09] MEDS ORDERED: HALOPERIDOL 5 MG/ML VIAL IVP ONE (21:48)
[2019-07-09] MEDS ORDERED: MAGNESIUM SULFATE 2 GRAM 2 GM/50 ML BAG IV ONE (21:49)
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
[2019-07-09 21:54] LABS: BILIRUBIN,URINE NEGATIVE (NEGATIVE); GLUCOSE, URINE (UA) NEGATIVE (NEGATIVE); KETONES,URINE (UA) NEGATIVE (NEGATIVE); LEUKOCYTE ESTERASE, URINE NEGATIVE (NEGATIVE); NITRITE,URINE NEGATIVE (NEGATIVE); OCCULT BLOOD,URINE TRACE-INTA (NEGATIVE); PROTEIN,URINE NEGATIVE (NEGATIVE); UROBILINOGEN,URINE 0.2 (NORMAL) E.U./dL (NORMAL)
[2019-07-09 21:55] LABS: CLARITY,URINE CLEAR (CLEAR)
[2019-07-09 21:56] LABS: HCG UR QUAL NEGATIVE
[2019-07-09 22:14] LABS: BASOPHILS # (AUTO) 0.1 10^3/uL (0.0-0.1); BASOPHILS % (AUTO) 0.6 %; EOSINOPHILS # (AUTO) 0.2 10^3/uL (0.0-0.7); EOSINOPHILS % (AUTO) 1.6 %; HGB - HEMOGLOBIN 13.5 g/dL (12.0-16.0); LYMPHOCYTES # (AUTO) 2.5 10^3/uL (1.5-3.5); LYMPHOCYTES % (AUTO) 17.8 %; MEAN CORPUSCULAR HEMOGLOBIN 32.5 pg (27.0-31.0); MEAN CORPUSCULAR HGB CONC 36.3 g/dL (32.0-36.0); MEAN CORPUSCULAR VOLUME 89.6 fL (81.0-99.0); MEAN PLATELET VOLUME 8.9 fL (7.9-10.8); MONOCYTES # (AUTO) 1.3 10^3/uL (0.0-1.0); MONOCYTES % (AUTO) 8.9 %; NEUTROPHILS % (AUTO) 70.5 %; PLT - PLATELET COUNT 357 10^3/uL (130-450); RED BLOOD COUNT 4.15 10^6/uL (4.20-5.40); RED CELL DISTRIBUTION WIDTH 12.6 % (12.0-15.0); WHITE BLOOD COUNT 14.2 x10^3/uL (4.8-10.8)
[2019-07-09 22:27] LABS: ALBUMIN 3.9 g/dL (3.2-5.5); BILIRUBIN,TOTAL 0.7 mg/dL (0.2-1.0); CALCIUM 8.9 mg/dL (8.5-10.3); CREATININE 0.8 mg/dL (0.4-1.0); TOTAL PROTEIN 7.9 g/dL (6.7-8.2)
[2019-07-10 00:26] VITALS: BP 148/88
== END 2019-07-10 00:26 | disposition home or self-care (01) ==
LOC: ED 21:22
DX: R10.31 Right lower quadrant pain (principal); G43.419 Hemiplegic migraine, intractable, without status migrainosus
CPT/HCPCS: 36415; 80053; 81003; 81025; 83690; 85025; 96365; 96367; 96375; 99284; 99285; J1200; J7040; 81001; 87086

== ENCOUNTER 2019-07-20 03:23 | Emergency (ER) | payer OTHER ==
[2019-07-20 03:54] LABS: BILIRUBIN,URINE NEGATIVE (NEGATIVE); GLUCOSE, URINE (UA) NEGATIVE (NEGATIVE); KETONES,URINE (UA) NEGATIVE (NEGATIVE); LEUKOCYTE ESTERASE, URINE NEGATIVE (NEGATIVE); NITRITE,URINE NEGATIVE (NEGATIVE); OCCULT BLOOD,URINE SMALL (NEGATIVE); PH,URINE 5.5 PH (5.0-7.5); PROTEIN,URINE NEGATIVE (NEGATIVE); UROBILINOGEN,URINE 0.2 (NORMAL) E.U./dL (NORMAL)
[2019-07-20 03:56] LABS: CLARITY,URINE CLEAR (CLEAR); HCG UR QUAL NEGATIVE
[2019-07-20 04:03] LABS: BACTERIA,URINE Moderate /HPF (None Seen); SQUAMOUS EPITHELIAL CELL,UR MOD Squamous (<= Few)
[2019-07-20 04:14] LABS: BASOPHILS # (AUTO) 0.1 10^3/uL (0.0-0.1); BASOPHILS % (AUTO) 0.7 %; EOSINOPHILS # (AUTO) 0.1 10^3/uL (0.0-0.7); EOSINOPHILS % (AUTO) 1.2 %; LYMPHOCYTES # (AUTO) 2.9 10^3/uL (1.5-3.5); LYMPHOCYTES % (AUTO) 29.7 %; MEAN CORPUSCULAR HEMOGLOBIN 31.2 pg (27.0-31.0); MEAN CORPUSCULAR VOLUME 91.8 fL (81.0-99.0); MEAN PLATELET VOLUME 8.7 fL (7.9-10.8); MONOCYTES # (AUTO) 0.7 10^3/uL (0.0-1.0); MONOCYTES % (AUTO) 6.8 %; NEUTROPHILS # (AUTO) 5.9 10^3/uL (1.5-6.6); NEUTROPHILS % (AUTO) 60.9 %; PLT - PLATELET COUNT 389 10^3/uL (130-450); RED BLOOD COUNT 4.49 10^6/uL (4.20-5.40); RED CELL DISTRIBUTION WIDTH 12.7 % (12.0-15.0); WHITE BLOOD COUNT 9.8 x10^3/uL (4.8-10.8)
[2019-07-20 04:28] LABS: ALBUMIN 4.3 g/dL (3.2-5.5); BILIRUBIN,TOTAL 0.6 mg/dL (0.2-1.0); CALCIUM 9.1 mg/dL (8.5-10.3); CREATININE 0.8 mg/dL (0.4-1.0); TOTAL PROTEIN 8.4 g/dL (6.7-8.2)
--- NOTE | 2019-07-20 05:00 | ED Physician Documentation ---
PD HPI ABD PAIN - Stated complaint Stated Complaint: ABD/ DIZZY/N - Chief complaint Chief Complaint: Abd Pain - History obtained from History obtained from: Patient - History of Present Illness Timing - onset: Today Timing - duration: Hours Timing - details: Abrupt onset Pain level max: 10 Pain level now: 10 Quality: Pain Location: RLQ Improved by: Other (nothing) Worsened by: Moving, Palpation Associated symptoms: Nausea, Vomiting. No: Fever, Diarrhea, Constipation, Dysuria Similar symptoms before: Diagnosis (hemiplegic migraine) Recently seen: Emergency Dept - Additional information Additional information: c/o abdominal pain, predominantly RLQ with nausea and vomiting since 8 PM. she says these symptoms then set off my migraine and she thus also c/o generalized FRAIRE. she has had these symptoms recurrently for at least 2 years. she took naproxyn, benadryl, and reglan without relief. this is her 7th [facility] ED visit of 2019, including 3 visits last month. She also had 9 [facility] ED visits last year. 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 : None HEENT: None Psych: Anxiety Musculoskeletal: None Derm: None - Past Surgical History Past Surgical History: Yes /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: Other HEENT: Tonsil/Adenoidectomy - Present Medications Home Medications: Ambulatory Orders Medication Instructions Recorded Confirmed Norethindrone-E.estradiol-Iron 1 tab ORAL 07/07/18 [[id number] 1-0.02(29)-75] Escitalopram Oxalate [Lexapro] 07/20/19 LORazepam [Lorazepam] 0.5 mg PO TID PRN #10 tablet 07/20/19 Trazodone HCl 1 tab PO QPM 07/20/19 07/20/19 Verapamil [Calan] 80 mg PO DAILY 07/20/19 07/20/19 - Allergies Allergies/Adverse Reactions: Allergies Allergy/AdvReac Type Severity Reaction Status Date / Time Sulfa (Sulfonamide Allergy Unknown Verified 07/20/19 03:32 Antibiotics) propranolol AdvReac Unknown Verified 07/20/19 03:32 - Social History Does the pt smoke?: No Smoking Status: Never smoker Does the pt drink ETOH?: Yes Does the pt have substance abuse?: No - Immunizations Immunizations are current?: Yes - POLST Patient has POLST: No POLST Status: Full Code PD ED PE NORMAL - Vitals Vital signs reviewed: Yes - General General: Alert and oriented X 3, No acute distress, Well developed/nourished - HEENT HEENT: Moist mucous membranes - Neck Neck: Supple, no meningeal sign - Cardiac Cardiac: RRR, No murmur - Respiratory Respiratory: No respiratory distress, Clear bilaterally - Abdomen Abdomen: Soft, Non tender, Non distended - Back Back: No CVA TTP - Derm Derm: Normal color, Warm and dry - Neuro Neuro: Alert and oriented X 3, research clerk 2-12 intact, No motor deficit, No sensory deficit, Normal speech Results - Vitals Vitals: Oxygen O2 Source Room air - Labs Labs: Laboratory Tests 07/20/19 07/20/19 07/20/19 03:45 04:00 04:00 WBC 9.8 RBC 4.49 Hgb 14.0 Hct 41.2 MCV 91.8 MCH 31.2 H MCHC 34.0 RDW 12.7 Plt Count 389 MPV 8.7 Neut # (Auto) 5.9 Lymph # (Auto) 2.9 [place] # (Auto) 0.7 Eos # (Auto) 0.1 Baso # (Auto) 0.1 Absolute Nucleated RBC 0.00 Nucleated RBC % 0.0 Sodium 144 Potassium 4.0 Chloride 106 Carbon Dioxide 26 Anion Gap 12.0 BUN 13 Creatinine 0.8 Estimated GFR (MDRD) 88 L Glucose 102 H Calcium 9.1 Total Bilirubin 0.6 AST 27 ALT 24 Alkaline Phosphatase 74 Total Protein 8.4 H Albumin 4.3 Globulin 4.1 Albumin/Globulin Ratio 1.0 Lipase 33 Urine Color YELLOW Urine Clarity CLEAR Urine pH 5.5 Ur Specific [place] 1.010 Urine Protein NEGATIVE Urine Glucose (UA) NEGATIVE Urine Ketones NEGATIVE Urine Occult Blood SMALL H Urine Nitrite NEGATIVE Urine Bilirubin NEGATIVE Urine Urobilinogen 0.2 (NORMAL) Ur Leukocyte Esterase NEGATIVE Urine RBC 6-10 H Urine WBC 0-3 Ur Squamous Epith Cells MOD Squamous H Urine Bacteria Moderate H Ur Microscopic Review INDICATED Urine Culture Comments NOT INDICATED Urine HCG, Qual NEGATIVE PD MEDICAL DECISION MAKING - ED course Complexity details: reviewed old records, reviewed results, re-evaluated isaiah lees, considered differential, d/w patient, d/w family Departure - Departure Disposition: 01 Home, Self Care Clinical Impression: Abdominal pain Qualifiers: Abdominal location: generalized Qualified Code(s): R10.84 - Generalized abdominal pain Migraine Qualifiers: Migraine type: unspecified Status migrainosus presence: with status migrainosus Intractability: not intractable Qualified Code(s): G43.901 - Migraine, unspecified, not intractable, with status migrainosus Condition: Good Instructions: ED Abdominal Pain Unkn Cause, ED Headache Migraine Follow-Up: DENA GREENE MD [Primary Care Provider] - Prescriptions: LORazepam [Lorazepam] 0.5 mg PO TID PRN #10 tablet PRN Reason: Anxiety Discharge Date/Time: 07/20/19 08:38
[2019-07-20] MEDS ORDERED: HALOPERIDOL 5 MG/ML VIAL IVP ONE (05:12)
[2019-07-20] MEDS ORDERED: PROMETHAZINE INJ 25 MG in SODIUM CHLORIDE 0.9% 50 ML IV STA (05:13)
[2019-07-20] MEDS ORDERED: SODIUM CHLORIDE 0.9% 1,000 ML IV STA (05:13)
[2019-07-20] MEDS ORDERED: KETOROLAC 30 MG/ML VIAL IVP STA (05:13)
[2019-07-20] MEDS ORDERED: diphenhydrAMINE INJ 50 MG/ML VIAL IVP STA (05:14)
[2019-07-20] MEDS ORDERED: HYDROmorphone 1 MG/ML CARPUJECT IVP STA (06:32)
[2019-07-20] MEDS ORDERED: LORazepam 2 MG/ML VIAL IVP STA (06:32)
[2019-07-20 08:38] VITALS: BP 158/89
== END 2019-07-20 08:38 | disposition home or self-care (01) ==
LOC: ED 03:23
DX: R10.84 Generalized abdominal pain (principal); G43.901 Migraine, unspecified, not intractable, with status migrainosus
CPT/HCPCS: 36415; 80053; 81001; 81025; 83690; 85025; 96361; 96365; 96375; 99284; 99285; J1170; J1200; J2060; J7040; 81003; 87086

== ENCOUNTER 2019-10-04 20:29 | Emergency (ER) | payer OTHER ==
[2019-10-04] MEDS ORDERED: SODIUM CHLORIDE 0.9% 1,000 ML IV ONE (20:58)
--- NOTE | 2019-10-04 20:58 | ED Physician Documentation ---
History of Present Illness - Stated complaint Stated Complaint: SYNCOPE - Chief complaint Chief Complaint: Neuro - Additonal information Additional information: This is a 24-year-old female with a history of endometriosis, depression, who presents with an episode of syncope. Patient states that she has been feeling a bit rundown over the last several days, she was diagnosed with a kidney infection at [facility] last and she has been taking ciprofloxacin for this. She states that her urine is cleared up, but she continues to have some left lower back discomfort. Today she was in her house when she began to feel lightheaded and she passed out she fell backwards hitting her head on the floor. She was out for approximately 20 to 30 seconds. There is no witnessed seizure activity. She denies any chest pain or shortness of breath preceding or after the event. She states she only has a mild headache at this time denies any weakness or numbness. She denies fever, denies abdominal pain. She has not been hydrating well. 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 HEENT: Tonsil/Adenoidectomy - Present Medications Home Medications: Ambulatory Orders Medication Instructions Recorded Confirmed Norethindrone-E.estradiol-Iron 1 tab ORAL 07/07/18 [[id number]-[id number] 1-0.02(92)-75] Escitalopram Oxalate [Lexapro] 07/20/19 LORazepam [Lorazepam] 0.5 mg PO TID PRN #10 tablet 07/20/19 Trazodone HCl 1 tab PO QPM 07/20/19 07/20/19 Verapamil [Calan] 80 mg PO DAILY 07/20/19 07/20/19 Metoclopramide [Reglan] 10 mg PO Q6H PRN #10 tablet 10/05/19 - Allergies Allergies/Adverse Reactions: Allergies Allergy/AdvReac Type Severity Reaction Status Date / Time Sulfa (Sulfonamide Allergy Unknown Verified 07/20/19 03:32 Antibiotics) propranolol AdvReac Unknown Verified 07/20/19 03:32 - Social History Does the pt smoke?: No Smoking Status: Never smoker Does the pt drink ETOH?: Yes Does the pt have substance abuse?: No - Immunizations Immunizations are current?: Yes - POLST Patient has POLST: No POLST Status: Full Code PD ED PE NORMAL - Vitals Vital signs reviewed: Yes - General General: Alert and oriented X 3, No acute distress - HEENT HEENT: PERRL - Neck Neck: Supple, no meningeal sign - Cardiac Cardiac: RRR, No murmur - Respiratory Respiratory: Clear bilaterally - Abdomen Abdomen: Normal bowel sounds, Soft, Non tender, Non distended - Back Back: Other (Mild left lower paraspinous tenderness to palpation, no skin changes.) - Derm Derm: Warm and dry - Extremities Extremities: No deformity - Neuro Neuro: Alert and oriented X 3, bath steward/stewardess 2-12 intact, No motor deficit, No sensory deficit, Normal speech - Psych Psych: Normal mood, Normal affect Results - Vitals Vitals: Vital Signs - 24 hr 10/04/19 10/04/19 10/04/19 20:33 21:48 23:16 Temperature 36.5 C Heart Rate 117 H 83 85 Respiratory 18 18 20 Rate Blood Pressure 137/85 H 119/82 H 116/95 H O2 Saturation 98 100 100 10/05/19 01:42 Temperature Heart Rate 78 Respiratory 15 Rate Blood Pressure 122/76 O2 Saturation 100 Oxygen O2 Source Room air - EKG (time done) 21:00 Other comments: Other comments (Rate 83, rhythm sinus, there is no ST segment elevation or depression, QTC 410.) - Labs Labs: Laboratory Tests 10/04/19 10/04/19 10/04/19 21:15 21:15 21:15 WBC 9.4 RBC 4.25 Hgb 12.9 Hct 38.5 MCV 90.6 MCH 30.4 MCHC 33.5 RDW 12.3 Plt Count 365 MPV 8.9 Neut # (Auto) 6.1 Lymph # (Auto) 2.4 [place] # (Auto) 0.8 Eos # (Auto) 0.1 Baso # (Auto) 0.1 Absolute Nucleated RBC 0.00 Nucleated RBC % 0.0 Sodium 138 Potassium 3.8 Chloride 107 Carbon Dioxide 24 Anion Gap 7.0 BUN 13 Creatinine 0.9 Estimated GFR (MDRD) 77 L Glucose 119 H Calcium 8.9 Total Bilirubin 0.3 AST 24 ALT 21 Alkaline Phosphatase 79 Total Protein 7.0 Albumin 3.6 Globulin 3.4 Albumin/Globulin Ratio 1.1 Lipase 28 Serum HCG, Qual NEGATIVE Urine Color Urine Clarity Urine pH Ur Specific Lynn Urine Protein Urine Glucose (UA) Urine Ketones Urine Occult Blood Urine Nitrite Urine Bilirubin Urine Urobilinogen Ur Leukocyte Esterase Urine RBC Urine WBC Ur Squamous Epith Cells Urine Bacteria Ur Microscopic Review Urine Culture Comments 10/05/19 00:45 WBC RBC Hgb Hct MCV MCH MCHC RDW Plt Count MPV Neut # (Auto) Lymph # (Auto) [place] # (Auto) Eos # (Auto) Baso # (Auto) Absolute Nucleated RBC Nucleated RBC % Sodium Potassium Chloride Carbon Dioxide Anion Gap BUN Creatinine Estimated GFR (MDRD) Glucose Calcium Total Bilirubin AST ALT Alkaline Phosphatase Total Protein Albumin Globulin Albumin/Globulin Ratio Lipase Serum HCG, Qual Urine Color RED/BLOODY Urine Clarity SL. CLOUDY Urine pH 5.5 Ur Specific [place] 1.015 Urine Protein TRACE Urine Glucose (UA) NEGATIVE Urine Ketones NEGATIVE Urine Occult Blood LARGE H Urine Nitrite NEGATIVE Urine Bilirubin NEGATIVE Urine Urobilinogen 0.2 (NORMAL) Ur Leukocyte Esterase TRACE H Urine RBC TNTC H Urine WBC 0-3 Ur Squamous Epith Cells FEW Squamous Urine Bacteria Rare Ur Microscopic Review INDICATED Urine Culture Comments INDICATED - Rads (name of study) CT abd/pelvis W Radiology: Other (No acute abnormalities) PD MEDICAL DECISION MAKING - ED course Complexity details: considered differential (Dysrhythmia, electrolyte abnormality, UTI, pyelonephritis, nephrolithiasis, musculoskeletal pain, pancreatitis, appendicitis, ectopic , AAA) ED course: On arrival patient is nontoxic-appearing and her vital signs are notable for tachycardia in triage for which she has a normal heart rate on the time of my examination. EKG shows no signs of ischemia or dysrhythmia. IV was inserted labs are drawn patient was given and as well as fluids, and she subsequently re quired pain medications as well for discomfort in her left flank. Her labs show no leukocytosis, no anemia. Her abdominal panel is unremarkable, her lipase is normal, and her hCG is negative. She does have red blood cells in her urine, which is likely related to her menstruation, no convincing signs of infection, and she is on antibiotics for UTI which was diagnosed at [facility] recently. Her abdomen is benign and she has no significant anterior abdominal tenderness, but on repeat examination patient had a another episode of vomiting and states that her back pain has recurred, after discussing options the patient we elected to obtain a CT, which showed no acute abnormalities, specifically no nephrolithiasis or hydronephrosis. She has no lower abdominal discomfort, no pelvic or vaginal symptoms, she denies any concern for sexual transmitted action and she states that she has recent Pap smear and work-up with her OB which was unremarkable. She does have reproducible tenderness in her left flank, and this pain may be musculoskeletal, though musculoskeletal flank pain would be unlikely to cause her vomiting. Regarding her episode of syncope, she did appear dehydrated, and she has been hydrating poorly which is the likely cause of her symptoms. She did hit her head when she fell but she has no external signs of trauma, and does not require head scan by Evans CT head rules. She also has no neck tenderness or signs of external trauma. Her headache is very mild and her neurologic exam is normal, I do not see any clinical signs of acute intracranial pathology. On repeat evaluation patient is feeling much better, tolerating p.o., her abdomen remains benign and her neurologic exam is normal. I discussed the results of our studies, and that I do not have a clear explanation of her symptoms, but given her reassuring labs and vital signs and exam we will trial anti-emetics at home and close outpatient follow-up. I also discussed that if she has any persistent abdominal discomfort or new or concerning symptoms she should return for a repeat evaluation. Patient agrees with this plan and was discharged home. Departure - Departure Disposition: 01 Home, Self Care Clinical Impression: Flank pain Vomiting Qualifiers: Vomiting type: unspecified Vomiting Intractability: non-intractable Nausea presence: with nausea Qualified Code(s): R11.2 - Nausea with vomiting, unspecified Condition: Good Instructions: ED Flank Pain Uncertain Cause Prescriptions: Metoclopramide [Reglan] 10 mg PO Q6H PRN #10 tablet PRN Reason: Nausea / Vomiting Comments: You were seen today for flank pain and vomiting and an episode of passing out. Your labs and CT scan are reassuring, and I do not see a clear cause of your symptoms at this time. You may try the Reglan for nausea and vomiting, and you may take Tylenol and ibuprofen for pain control. Make sure that you are drinking plenty of fluids to stay hydrated. Be extra careful when you are getting up from sitting or standing, as these are times that you can become more lightheaded and pass out. Avoid doing any activity that could cause you harm if you pass out such as driving, climbing on ladders, or swimming unsupervised, you should only resume these activities once you are feeling completely better. If you develop worsening symptoms such as vomiting despite the Reglan, or increasing or changing pain, please return to the emergency department. Otherwise please follow-up with your primary care provider soon as possible Discharge Date/Time: 10/05/19 01:56
[2019-10-04 21:27] LABS: BASOPHILS # (AUTO) 0.1 10^3/uL (0.0-0.1); BASOPHILS % (AUTO) 0.6 %; EOSINOPHILS # (AUTO) 0.1 10^3/uL (0.0-0.7); HGB - HEMOGLOBIN 12.9 g/dL (12.0-16.0); LYMPHOCYTES # (AUTO) 2.4 10^3/uL (1.5-3.5); LYMPHOCYTES % (AUTO) 25.4 %; MEAN CORPUSCULAR HEMOGLOBIN 30.4 pg (27.0-31.0); MEAN CORPUSCULAR HGB CONC 33.5 g/dL (32.0-36.0); MEAN CORPUSCULAR VOLUME 90.6 fL (81.0-99.0); MEAN PLATELET VOLUME 8.9 fL (7.9-10.8); MONOCYTES # (AUTO) 0.8 10^3/uL (0.0-1.0); NEUTROPHILS # (AUTO) 6.1 10^3/uL (1.5-6.6); NEUTROPHILS % (AUTO) 64.6 %; PLT - PLATELET COUNT 365 10^3/uL (130-450); RED BLOOD COUNT 4.25 10^6/uL (4.20-5.40); RED CELL DISTRIBUTION WIDTH 12.3 % (12.0-15.0); WHITE BLOOD COUNT 9.4 x10^3/uL (4.8-10.8)
[2019-10-04 21:41] LABS: ALBUMIN 3.6 g/dL (3.2-5.5); ALBUMIN/GLOBULIN RATIO 1.1 (1.0-2.2); BILIRUBIN,TOTAL 0.3 mg/dL (0.2-1.0); CALCIUM 8.9 mg/dL (8.5-10.3); CREATININE 0.9 mg/dL (0.4-1.0)
[2019-10-04 21:50] LABS: HCG,QUALITATIVE BLOOD NEGATIVE
[2019-10-04] MEDS ORDERED: ONDANSETRON ODT 4 MG TABLET TL STA (21:59)
[2019-10-04] MEDS ORDERED: ACETAMINOPHEN 500 MG TABLET PO STA (21:59)
[2019-10-04] MEDS ORDERED: oxyCODONE 5 MG TABLET PO STA (21:59)
[2019-10-04] MEDS ORDERED: ONDANSETRON 4 MG/2 ML VIAL IVP STA (23:00)
[2019-10-04] MEDS ORDERED: LACTATED RINGERS 1,000 ML IV STA (23:00)
[2019-10-04] MEDS ORDERED: METOCLOPRAMIDE 10 MG/2 ML VIAL IVP STA (23:51)
[2019-10-04] MEDS ORDERED: MORPHINE 2 MG/ML CARPUJECT IVP STA (23:54)
[2019-10-05] MEDS ORDERED: IOVERSOL 320 100 ML VIAL IVP ONE ×2 (00:09→00:38)
--- NOTE | 2019-10-05 00:48 | CT Report ---
Reason: L flank pain, not improved with abx, syncope Procedure Date: 10/05/2019 Accession Number: [id number] / [id number] Procedure: CT - Abdomen/Pelvis W CPT Code: Final Report FULL RESULT: EXAM: CT ABDOMEN AND PELVIS EXAM DATE: 10/05/2019 12:35 AM. CLINICAL HISTORY: L flank pain, not improved with abx, syncope. COMPARISONS: ABDOMEN/PELVIS W/ 11/26/2018 3:23 AM. TECHNIQUE: Routine helical CT imaging was performed through the abdomen and pelvis. IV contrast: OPTI 320 100ML. Enteric contrast: No. Reconstructions: Coronal and sagittal. In accordance with CT protocol optimization, one or more of the following dose reduction techniques were utilized for this exam: automated exposure control, adjustment of mA and/or KV based on patient size, or use of iterative reconstructive technique. FINDINGS: ABDOMEN: Lung Bases: Incompletely included lower lungs are grossly clear. Heart size is within normal limits. No basilar effusions. Liver: Unremarkable. Spleen: Unremarkable. Pancreas: Unremarkable. Gallbladder/Bile Ducts: Gallbladder is unremarkable. Biliary tree is normal caliber. Adrenal Glands: Unremarkable. Kidneys: No mass, calculi, or hydronephrosis. Peritoneum/Mesentery/Bowel: No free fluid, free air, or collection. No intestinal obstruction or inflammation. Appendix not identified, may be absent. No pericecal inflammatory changes. Lymph nodes: No mesenteric, periportal, or retroperitoneal lymphadenopathy. Vasculature: Abdominal aorta is nonaneurysmal. Portal vein is patent. Hepatic veins are patent. PELVIS: The bladder is unremarkable for the degree of distention. Uterus is present. No obvious abnormally enlarged adnexal abnormalities. No pelvic lymphadenopathy. Bones: No suspicious osseous lesions. IMPRESSION: No acute abnormalities. RADIA
[2019-10-05 00:52] LABS: BILIRUBIN,URINE NEGATIVE (NEGATIVE); GLUCOSE, URINE (UA) NEGATIVE (NEGATIVE); KETONES,URINE (UA) NEGATIVE (NEGATIVE); LEUKOCYTE ESTERASE, URINE TRACE (NEGATIVE); NITRITE,URINE NEGATIVE (NEGATIVE); OCCULT BLOOD,URINE LARGE (NEGATIVE); PH,URINE 5.5 PH (5.0-7.5); PROTEIN,URINE TRACE mg/dL (NEGATIVE); UROBILINOGEN,URINE 0.2 (NORMAL) E.U./dL (NORMAL)
[2019-10-05 01:01] LABS: CLARITY,URINE SL. CLOUDY (CLEAR)
[2019-10-05 01:02] LABS: BACTERIA,URINE Rare /HPF (None Seen); RBC,URINE TNTC /HPF (0-5); SQUAMOUS EPITHELIAL CELL,UR FEW Squamous (<= Few)
[2019-10-05] MEDS ORDERED: KETOROLAC 30 MG/ML VIAL IVP STA (01:36)
[2019-10-05 01:43] VITALS: BP 122/76
== END 2019-10-05 01:56 | disposition home or self-care (01) ==
LOC: ED 20:29
DX: R10.9 Unspecified abdominal pain (principal); R11.2 Nausea with vomiting, unspecified; R55 Syncope and collapse
CPT/HCPCS: 36415; 74177; 80053; 81001; 83690; 84703; 85025; 87086; 93005; 96361; 96374; 96375; 99284; A9270; J2765; J7120; Q0162; Q9967; 81003

== ENCOUNTER 2019-10-23 08:23 | Emergency (ER) | payer OTHER ==
[2019-10-23] MEDS ORDERED: SODIUM CHLORIDE 0.9% 1,000 ML IV ONE (09:17)
[2019-10-23] MEDS ORDERED: KETOROLAC 30 MG/ML VIAL IVP STA (09:17)
[2019-10-23] MEDS ORDERED: PROMETHAZINE INJ 25 MG in SODIUM CHLORIDE 0.9% 50 ML IV STA (09:17)
[2019-10-23] MEDS ORDERED: diphenhydrAMINE INJ 50 MG/ML VIAL IVP STA (09:17)
[2019-10-23 09:41] LABS: BASOPHILS # (AUTO) 0.1 10^3/uL (0.0-0.1); EOSINOPHILS % (AUTO) 0.4 %; HGB - HEMOGLOBIN 13.5 g/dL (12.0-16.0); LYMPHOCYTES # (AUTO) 1.6 10^3/uL (1.5-3.5); LYMPHOCYTES % (AUTO) 23.7 %; MEAN CORPUSCULAR HGB CONC 33.5 g/dL (32.0-36.0); MEAN CORPUSCULAR VOLUME 89.6 fL (81.0-99.0); MEAN PLATELET VOLUME 8.8 fL (7.9-10.8); MONOCYTES # (AUTO) 0.5 10^3/uL (0.0-1.0); MONOCYTES % (AUTO) 6.7 %; NEUTROPHILS # (AUTO) 4.6 10^3/uL (1.5-6.6); NEUTROPHILS % (AUTO) 67.8 %; PLT - PLATELET COUNT 374 10^3/uL (130-450); RED CELL DISTRIBUTION WIDTH 12.5 % (12.0-15.0); WHITE BLOOD COUNT 6.8 x10^3/uL (4.8-10.8)
[2019-10-23 09:55] LABS: ALBUMIN 4.4 g/dL (3.2-5.5); ALBUMIN/GLOBULIN RATIO 1.3 (1.0-2.2); BILIRUBIN,TOTAL 1.1 mg/dL (0.2-1.0); CALCIUM 9.1 mg/dL (8.5-10.3); CREATININE 0.9 mg/dL (0.4-1.0); TOTAL PROTEIN 7.9 g/dL (6.7-8.2)
[2019-10-23] MEDS ORDERED: DEXAMETHASONE 10 MG/ML VIAL IVP STA (10:18)
[2019-10-23] MEDS ORDERED: MAGNESIUM SULFATE 2 GRAM 2 GM/50 ML BAG IV ONE (10:18)
[2019-10-23] MEDS ORDERED: HYDROmorphone 1 MG/ML CARPUJECT IVP STA (11:24)
--- NOTE | 2019-10-23 11:55 | ED Physician Documentation ---
History of Present Illness - Stated complaint Stated Complaint: N/V/HEADACHE - Chief complaint Chief Complaint: Abd Pain - History obtained from History obtained from: Patient - History of Present Illness Timing: Today Pain level max: 8 Pain level now: 8 Improved by: nothing Worsened by: light, sound - Additonal information Additional information: 24-year-old female states that she has a headache today. Has chronic headaches. Took her Imitrex and Reglan without relief this morning. [place] for her headache. No trauma. No recent illnesses. No fevers. 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 HEENT: Tonsil/Adenoidectomy - Present Medications Home Medications: Ambulatory Orders Medication Instructions Recorded Confirmed Norethindrone-E.estradiol-Iron 1 tab ORAL 07/07/18 [[id number] 1-0.02(64)-75] Escitalopram Oxalate [Lexapro] 07/20/19 LORazepam [Lorazepam] 0.5 mg PO TID PRN #10 tablet 07/20/19 Trazodone HCl 1 tab PO QPM 07/20/19 07/20/19 Verapamil [Calan] 80 mg PO DAILY 07/20/19 07/20/19 Metoclopramide [Reglan] 10 mg PO Q6H PRN #10 tablet 10/05/19 buPROPion [Wellbutrin Sr] 150 mg DAILY 10/23/19 10/23/19 - Allergies Allergies/Adverse Reactions: Allergies Allergy/AdvReac Type Severity Reaction Status Date / Time Sulfa (Sulfonamide Allergy Unknown Verified 10/23/19 08:35 Antibiotics) propranolol AdvReac Unknown Verified 10/23/19 08:35 - Social History Does the pt smoke?: No Smoking Status: Never smoker Does the pt drink ETOH?: Yes Does the pt have substance abuse?: No - Immunizations Immunizations are current?: Yes - POLST Patient has POLST: No POLST Status: Full Code PD ED PE NORMAL - Vitals Vital signs reviewed: Yes - General General: Alert and oriented X 3, No acute distress - HEENT HEENT: Moist mucous membranes - Neck Neck: Supple, no meningeal sign - Cardiac Cardiac: RRR - Respiratory Respiratory: No respiratory distress, Clear bilaterally - Derm Derm: Warm and dry - Neuro Neuro: Alert and oriented X 3, instructor ballroom dancing 2-12 intact, No motor deficit, No sensory deficit, Normal speech Eye Opening: Spontaneous Motor: Obeys Commands Verbal: Oriented GCS Score: 15 Results - Vitals Vitals: Vital Signs - 24 hr 10/23/19 10/23/19 10/23/19 08:29 10:32 11:00 Temperature 36.8 C 37.0 C Heart Rate 69 98 100 Respiratory 16 15 18 Rate Blood Pressure 162/87 H 136/78 H O2 Saturation 97 100 100 10/23/19 12:40 Temperature 37.1 C Heart Rate 106 H Respiratory 16 Rate Blood Pressure 133/75 H O2 Saturation 100 Oxygen O2 Source Room air - Labs Labs: Laboratory Tests 10/23/19 10/23/19 09:33 09:33 WBC 6.8 RBC 4.50 Hgb 13.5 Hct 40.3 MCV 89.6 MCH 30.0 MCHC 33.5 RDW 12.5 Plt Count 374 MPV 8.8 Neut # (Auto) 4.6 Lymph # (Auto) 1.6 [place] # (Auto) 0.5 Eos # (Auto) 0.0 Baso # (Auto) 0.1 Absolute Nucleated RBC 0.00 Nucleated RBC % 0.0 Sodium 136 Potassium 4.1 Chloride 104 Carbon Dioxide 24 Anion Gap 8.0 BUN 9 Creatinine 0.9 Estimated GFR (MDRD) 77 L Glucose 99 Calcium 9.1 Total Bilirubin 1.1 H AST 32 ALT 38 Alkaline Phosphatase 75 Total Protein 7.9 Albumin 4.4 Globulin 3.5 Albumin/Globulin Ratio 1.3 Lipase 23 PD MEDICAL DECISION MAKING - ED course Complexity details: reviewed results, re-evaluated patient, considered differential, d/w patient, d/w family ED course: 24-year-old female with her usual headache. She was given Toradol, Phenergan, Benadryl, dexamethasone, magnesium and a dose of Dilaudid over several hours. She states it did not change her headache much. She was also given ativan and this did help. She is in no distress here. No evidence of subarachnoid hemorrhage, tumor. No evidence of meningitis or encephalitis. Patient counseled regarding signs and symptoms for which I believe and urgent re-evaluat ion would be necessary. Patient with good understanding of and agreement to plan and is comfortable going home at this time This document was made in part using voice recognition software. While efforts are made to proofread this document, sound alike and grammatical errors may occur. Departure - Departure Disposition: 01 Home, Self Care Clinical Impression: Migraine Qualifiers: Migraine type: unspecified Status migrainosus presence: without status yasir rainosus Intractability: not intractable Qualified Code(s): G43.909 - Migraine, unspecified, not intractable, without status migrainosus Condition: Good Instructions: ED Cephalgia Unspecified Follow-Up: Naseem Fajardo MD [Primary Care Provider] - Within 1 week Comments: Follow-up with your doctor for further care. Return if you worsen. Go home and rest today, your headache should improve as the day progresses. Discharge Date/Time: 10/23/19 13:20
[2019-10-23] MEDS ORDERED: LORazepam 2 MG/ML VIAL IVP STA (12:18)
[2019-10-23 12:41] VITALS: BP 133/75
== END 2019-10-23 13:20 | disposition home or self-care (01) ==
LOC: ED 08:23
DX: G43.909 Migraine, unspecified, not intractable, without status migrainosus (principal); Z79.899 Other long term (current) drug therapy
CPT/HCPCS: 36415; 80053; 83690; 85025; 96365; 96367; 96375; 99284; 99285; J1170; J1200; J2060; J7040

== ENCOUNTER 2019-10-24 14:02 | Emergency (ER) | payer OTHER ==
--- NOTE | 2019-10-24 14:39 | ED Physician Documentation ---
PD HPI HEADACHE - Stated complaint Stated Complaint: HEADACHE/ABD PX - Chief complaint Chief Complaint: Abd Pain - History obtained from History obtained from: Patient - History of Present Illness Timing - onset: How many days ago (2-3) Timing - onset during: Light activity Timing - duration: Days (Has had some headache for 2 to 3 days and also some up per abdominal crampy discomfort. She does have history of endometriosis with lower abdominal pain but states upper abdomen is unusual for her. She was having headache mostly in the frontal area with a feeling of pressure. She denies any injury. She denies any visual changes. There is some light sensitivity. She is having nausea. She denies any focal weakness and has had left paresis with migraines in the past.) Timing - details: Gradual onset, Still present, Waxing and waning (Improved some yesterday with medications in the IV in the ER. [place] was feeling a little bit worse again earlier in the day. She is now returned here with increased headache and stomach pain again.) Worst headache ever?: No: Worst headache ever? Location: Front Quality: Throbbing, Aching. No: Thunderclap Improved by: No: Meds Worsened by: Light Contributing factors: Recent illness (She does have nausea with some vomiting today some along with some upper abdominal pain and couple of episodes of petrona rrhea last night. She has a feeling of some achiness and chills as well.) Recently seen: Emergency Dept (yesterday) Review of Systems Constitutional: reports: Chills, Myalgias. denies: Fever Nose: denies: Rhinorrhea / runny nose, Congestion Throat: denies: Sore throat Respiratory: denies: Cough GI: reports: Nausea, Vomiting, Diarrhea (couple episodes) Skin: denies: Rash, Lesions Neurologic: reports: Headache. 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 : None HEENT: None Psych: Anxiety Musculoskeletal: None Derm: None - Past Surgical History Past Surgical History: Yes /WEAVER AXMINSTER: Other HEENT: Tonsil/Adenoidectomy - Present Medications Home Medications: Ambulatory Orders Medication Instructions Recorded Confirmed Norethindrone-E.estradiol-Iron 1 tab ORAL 07/07/18 [Qihtel-Nuctts-Yk 1-0.02(54)-75] Escitalopram Oxalate [Lexapro] 07/20/19 LORazepam [Lorazepam] 0.5 mg PO TID PRN #10 tablet 07/20/19 Trazodone HCl 1 tab PO QPM 07/20/19 07/20/19 Verapamil [Calan] 80 mg PO DAILY 07/20/19 07/20/19 Metoclopramide [Reglan] 10 mg PO Q6H PRN #10 tablet 10/05/19 buPROPion [Wellbutrin Sr] 150 mg DAILY 10/23/19 10/23/19 Famotidine 20 mg PO DAILY #30 tablet 10/24/19 Hydrocodone/Acetaminophen [[place] 1 each PO Q6H PRN #15 tablet 10/24/19 5-325 Tablet] Lidocaine Viscous 2% [Xylocaine 5 ml PO Q4H PRN #100 ml 10/24/19 Viscous 2%] Ondansetron Odt [Zofran] 4 mg TL Q6H PRN #10 tablet 10/24/19 - Allergies Allergies/Adverse Reactions: Allergies Allergy/AdvReac Type Severity Reaction Status Date / Time Sulfa (Sulfonamide Allergy Unknown Verified 10/24/19 14:08 Antibiotics) propranolol AdvReac Unknown Verified 10/24/19 14:08 - Social History Does the pt smoke?: No Smoking Status: Never smoker Does the pt drink ETOH?: Yes Does the pt have substance abuse?: No - Immunizations Immunizations are current?: Yes - POLST Patient has POLST: No POLST Status: Full Code PD ED PE NORMAL - Vitals Vital signs reviewed: Yes - General General: Alert and oriented X 3, No acute distress, Well developed/nourished - HEENT HEENT: Pharynx benign - Neck Neck: Supple, no meningeal sign, No adenopathy - Cardiac Cardiac: RRR, No murmur - Respiratory Respiratory: Clear bilaterally - Abdomen Abdomen: Soft, Non distended, No organomegaly, Other (some epigastric tenderness without percussion nor rebound tenderness. 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, No motor deficit, No sensory deficit, Normal speech Eye Opening: Spontaneous Motor: Obeys Commands Verbal: Oriented GCS Score: 15 Results - Vitals Vitals: Vital Signs - 24 hr 10/24/19 10/24/19 10/24/19 14:08 15:42 18:07 Temperature 36.5 C Heart Rate 119 H 120 H 115 H Respiratory 14 20 18 Rate Blood Pressure 128/100 H 141/99 H 118/57 L O2 Saturation 98 95 95 Oxygen O2 Source Room air - Labs Labs: Laboratory Tests 10/24/19 10/24/19 15:34 15:34 WBC 13.1 H RBC 4.51 Hgb 13.7 Hct 40.6 MCV 90.0 MCH 30.4 MCHC 33.7 RDW 12.8 Plt Count 368 MPV 8.6 Neut # (Auto) 8.5 H Lymph # (Auto) 3.2 [place] # (Auto) 1.3 H Eos # (Auto) 0.0 Baso # (Auto) 0.1 Absolute Nucleated RBC 0.00 Nucleated RBC % 0.0 Sodium 139 Potassium 3.9 Chloride 105 Carbon Dioxide 26 Anion Gap 8.0 BUN 13 Creatinine 0.9 Estimated GFR (MDRD) 77 L Glucose 86 Calcium 9.3 Total Bilirubin 0.5 AST 31 ALT 40 Alkaline Phosphatase 69 Total Protein 7.7 Albumin 4.5 Globulin 3.2 Albumin/Globulin Ratio 1.4 Lipase 26 PD MEDICAL DECISION MAKING - ED course Complexity details: reviewed old records, re-evaluated patient, d/w patient Departure - Departure Disposition: 01 Home, Self Care Clinical Impression: Upper abdominal pain Headache Qualifiers: Headache type: unspecified Headache chronicity pattern: acute headache Intractability: intractable Qualified Code(s): R51 - Headache Condition: Stable Record reviewed to determine appropriate education?: Yes Instructions: ED Abdominal Pain Unkn Cause, ED Cephalgia Unspecified Follow-Up: Naseem Fajardo MD [Primary Care Provider] - Prescriptions: Famotidine 20 mg PO DAILY #30 tablet Hydrocodone/Acetaminophen [[place] 5-325 Tablet] 1 each PO Q6H PRN #15 tablet PRN Reason: Pain Lidocaine Viscous 2% [Xylocaine Viscous 2%] 5 ml PO Q4H PRN #100 ml PRN Reason: Pain Ondansetron Odt [Zofran] 4 mg TL Q6H PRN #10 tablet PRN Reason: Nausea / Vomiting Comments: Your stomach pain may be from an irritated stomach such as gastritis or ulcer. Take famotidine daily for the next couple of weeks to a month. Use antacid such as Maalox or Mylanta and can use some lidocaine with it to help with the stomach pain as well. Ondansetron if needed for nausea. Continue your other usual medications. Add pain meds if needed. Discharge Date/Time: 10/24/19 18:27
[2019-10-24] MEDS ORDERED: SODIUM CHLORIDE 0.9% 1,000 ML IV ONE ×2 (15:14→15:17)
[2019-10-24] MEDS ORDERED: HALOPERIDOL 5 MG/ML VIAL IVP ONE (15:15)
[2019-10-24] MEDS ORDERED: KETOROLAC 15 MG/ML VIAL IVP STA (15:15)
[2019-10-24] MEDS ORDERED: HYDROmorphone 2 MG/ML VIAL IVP STA ×2 (15:15→17:31)
[2019-10-24] MEDS ORDERED: diphenhydrAMINE INJ 50 MG/ML VIAL IVP STA (15:16)
[2019-10-24 15:39] LABS: BASOPHILS # (AUTO) 0.1 10^3/uL (0.0-0.1); BASOPHILS % (AUTO) 0.5 %; EOSINOPHILS % (AUTO) 0.2 %; HGB - HEMOGLOBIN 13.7 g/dL (12.0-16.0); LYMPHOCYTES # (AUTO) 3.2 10^3/uL (1.5-3.5); MEAN CORPUSCULAR HEMOGLOBIN 30.4 pg (27.0-31.0); MEAN CORPUSCULAR HGB CONC 33.7 g/dL (32.0-36.0); MEAN PLATELET VOLUME 8.6 fL (7.9-10.8); MONOCYTES # (AUTO) 1.3 10^3/uL (0.0-1.0); MONOCYTES % (AUTO) 10.1 %; NEUTROPHILS # (AUTO) 8.5 10^3/uL (1.5-6.6); NEUTROPHILS % (AUTO) 64.7 %; PLT - PLATELET COUNT 368 10^3/uL (130-450); RED BLOOD COUNT 4.51 10^6/uL (4.20-5.40); RED CELL DISTRIBUTION WIDTH 12.8 % (12.0-15.0); WHITE BLOOD COUNT 13.1 x10^3/uL (4.8-10.8)
[2019-10-24 15:55] LABS: ALBUMIN 4.5 g/dL (3.2-5.5); ALBUMIN/GLOBULIN RATIO 1.4 (1.0-2.2); BILIRUBIN,TOTAL 0.5 mg/dL (0.2-1.0); CALCIUM 9.3 mg/dL (8.5-10.3); CREATININE 0.9 mg/dL (0.4-1.0); TOTAL PROTEIN 7.7 g/dL (6.7-8.2)
[2019-10-24] MEDS ORDERED: HYDROmorphone 1 MG/ML CARPUJECT IVP STA (16:18)
[2019-10-24] MEDS ORDERED: LORazepam 2 MG/ML VIAL IVP STA (16:18)
[2019-10-24] MEDS ORDERED: DEXAMETHASONE 10 MG/ML VIAL IVP STA (17:12)
[2019-10-24] MEDS ORDERED: MAG HYDROX/AL HYDROX/SIMETH 30 ML UDC PO STA (17:30)
[2019-10-24] MEDS ORDERED: LIDOCAINE VISCOUS 2% 15 ML UDC MM STA (17:30)
[2019-10-24] MEDS ORDERED: FAMOTIDINE 20 MG/2 ML VIAL IVP STA (17:31)
[2019-10-24 18:08] VITALS: BP 118/57
== END 2019-10-24 18:27 | disposition home or self-care (01) ==
LOC: ED 14:02
DX: R51 Headache (principal); R10.10 Upper abdominal pain, unspecified
CPT/HCPCS: 36415; 80053; 83690; 85025; 96361; 96374; 96375; 96376; 99284; 99285; A9270; J1170; J1200; J2060

== ENCOUNTER 2019-10-27 11:17 | Emergency (ER) | payer OTHER ==
--- NOTE | 2019-10-27 12:44 | ED Physician Documentation ---
History of Present Illness - Stated complaint Stated Complaint: N/V/SHAKING - Chief complaint Chief Complaint: Neuro - Additonal information Additional information: This is a 24-year-old female with history of hemiplegic migraines who presents with a recurrence of her migraine. Patient has had hemiplegic migraines for the last year or so and she has had an MRI in February after having an episode of paralysis on her left side associated with a headache, MRI was unremarkable and her paralysis resolved. She has established with a neurologist. Over last several days she developed a migraine which is bifrontal, currently worse on the right pulsating and associate with photophobia and phonophobia. She was treated in the emergency department and she had improvement, but her headache recurred today. She said she has been unable to hold down any fluids or food for the last 24 hours. She denies any focal weakness or numbness, She does have some generalized mild weakness and feels dehydrated. This feels similar to her typical migraine. Review of Systems Constitutional: denies: Fever Eyes: denies: Loss of vision Cardiac: denies: Chest pain / pressure Respiratory: denies: Dyspnea GI: reports: Vomiting. 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 : None HEENT: None Psych: Anxiety Musculoskeletal: None Derm: None - Past Surgical History Past Surgical History: Yes /MEDICAL LAB DIRECTOR: Other HEENT: Tonsil/Adenoidectomy - Present Medications Home Medications: Ambulatory Orders Medication Instructions Recorded Confirmed Norethindrone-E.estradiol-Iron 1 tab ORAL 07/07/18 [Zosnay-Kwiahb-Rk 1-0.02(97)-75] Escitalopram Oxalate [Lexapro] 07/20/19 LORazepam [Lorazepam] 0.5 mg PO TID PRN #10 tablet 07/20/19 Trazodone HCl 1 tab PO QPM 07/20/19 07/20/19 Verapamil [Calan] 80 mg PO DAILY 07/20/19 07/20/19 Metoclopramide [Reglan] 10 mg PO Q6H PRN #10 tablet 10/05/19 buPROPion [Wellbutrin Sr] 150 mg DAILY 10/23/19 10/23/19 Famotidine 20 mg PO DAILY #30 tablet 10/24/19 Hydrocodone/Acetaminophen [[place] 1 each PO Q6H PRN #15 tablet 10/24/19 5-325 Tablet] Lidocaine Viscous 2% [Xylocaine 5 ml PO Q4H PRN #100 ml 10/24/19 Viscous 2%] Ondansetron Odt [Zofran] 4 mg TL Q6H PRN #10 tablet 10/24/19 - Allergies Allergies/Adverse Reactions: Allergies Allergy/AdvReac Type Severity Reaction Status Date / Time Sulfa (Sulfonamide Allergy Unknown Verified 10/27/19 11:34 Antibiotics) propranolol AdvReac Unknown Verified 10/27/19 11:34 - Social History Does the pt smoke?: No Smoking Status: Never smoker Does the pt drink ETOH?: Yes Does the pt have substance abuse?: No - Immunizations Immunizations are current?: Yes - POLST Patient has POLST: No POLST Status: Full Code PD ED PE NORMAL - Vitals Vital signs reviewed: Yes - General General: Alert and oriented X 3 - HEENT HEENT: Atraumatic, PERRL - Neck Neck: Supple, no meningeal sign - Cardiac Cardiac: RRR, No murmur - Respiratory Respiratory: Clear bilaterally - Abdomen Abdomen: Normal bowel sounds, Soft, Non tender, Non distended - Derm Derm: Warm and dry - Extremities Extremities: No deformity - Neuro Neuro: Alert and oriented X 3, silver chaser 2-12 intact, No motor deficit, No sensory deficit, Normal speech, Other (Normal gait without ataxia.) - Psych Psych: Normal mood, Normal affect Results - Vitals Vitals: Oxygen O2 Source Room air - Labs Labs: Laboratory Tests 10/27/19 13:55 Ur Specific [place] 1.010 Urine HCG, Qual NEGATIVE PD MEDICAL DECISION MAKING - ED course Complexity details: considered differential (Migraine, tension headache, intracranial hemorrhage, mass-effect, Pseudotumor cerebri) ED course: In triage patient is tachycardic, on my exam she has a normal rate. She is mildly uncomfortable appearing, but nontoxic. Her neurologic exam is normal, including crisp optic discs without papilledema. She has a long history of migraines and she has had imaging MRI did not show any abnormalities, and this current episode does not have red flags, and is similar to her past migraines. IV was inserted and patient was given a migraine cocktail, as well as a bolus of normal saline. On repeat evaluation she is feeling a little better, but required a second round of medications with compazine, fiorcet, and dexamethasone. No narcotic medications were given. She had significant improvement in her symptoms after this, and was feeling well enough to go home. She is well-appearing and continues to have no abnormal neurologic findings on exam. I reviewed return precautions, PCP follow up, and pt was discharged home. Departure - Departure Disposition: 01 Home, Self Care Clinical Impression: Headache Qualifiers: Headache type: unspecified Headache chronicity pattern: acute headache Intractability: not intractable Qualified Code(s): R51 - Headache Condition: Good Instructions: ED Cephalgia Unspecified Comments: Given that your headaches have worsened, please follow-up with your neurologist as soon as possible. Call their office tomorrow to see if you can appointment sooner. If you are having worsening symptoms return to the emergency department Discharge Date/Time: 10/27/19 17:04
[2019-10-27] MEDS ORDERED: METOCLOPRAMIDE 10 MG/2 ML VIAL IVP STA (12:53)
[2019-10-27] MEDS ORDERED: SODIUM CHLORIDE 0.9% 1,000 ML IV ONE (12:53)
[2019-10-27] MEDS ORDERED: KETOROLAC 15 MG/ML VIAL IVP STA (12:53)
[2019-10-27] MEDS ORDERED: diphenhydrAMINE INJ 50 MG/ML VIAL IVP STA (12:53)
[2019-10-27] MEDS ORDERED: SUMAtriptan 6 MG/0.5 ML VIAL SUBQ STA (12:53)
[2019-10-27] MEDS ORDERED: HALOPERIDOL 5 MG/ML VIAL IVP ONE (14:08)
[2019-10-27] MEDS ORDERED: MAGNESIUM SULFATE 2 GRAM 2 GM/50 ML BAG IV ONE (14:08)
[2019-10-27] MEDS ORDERED: KETOROLAC 30 MG/ML VIAL IVP STA (14:08)
[2019-10-27 14:13] LABS: HCG UR QUAL NEGATIVE
[2019-10-27] MEDS ORDERED: BUTALB/ACETAM/CAFF 50/325/40MG TABLET PO STA (15:39)
[2019-10-27] MEDS ORDERED: DEXAMETHASONE 10 MG/ML VIAL IVP STA (15:40)
[2019-10-27] MEDS ORDERED: PROCHLORPERAZINE 10 MG/2 ML VIAL IVP STA (15:40)
[2019-10-27 17:03] VITALS: BP 125/92
== END 2019-10-27 17:04 | disposition home or self-care (01) ==
LOC: ED 11:17
DX: R51 Headache (principal); Z86.69 Personal history of other diseases of the nervous system and sense organs
CPT/HCPCS: 81025; 96361; 96365; 96372; 96375; 96376; 99284; 99285; A9270; J1200; J2765

== ENCOUNTER 2019-11-04 10:17 | Emergency (ER) | payer OTHER ==
[2019-11-04 10:57] LABS: BASOPHILS # (AUTO) 0.1 10^3/uL (0.0-0.1); BASOPHILS % (AUTO) 0.8 %; EOSINOPHILS % (AUTO) 0.3 %; LYMPHOCYTES % (AUTO) 20.1 %; MEAN CORPUSCULAR HGB CONC 33.4 g/dL (32.0-36.0); MEAN CORPUSCULAR VOLUME 89.9 fL (81.0-99.0); MEAN PLATELET VOLUME 8.7 fL (7.9-10.8); MONOCYTES # (AUTO) 0.8 10^3/uL (0.0-1.0); MONOCYTES % (AUTO) 7.4 %; NEUTROPHILS # (AUTO) 7.2 10^3/uL (1.5-6.6); NEUTROPHILS % (AUTO) 70.6 %; PLT - PLATELET COUNT 393 10^3/uL (130-450); RED BLOOD COUNT 4.66 10^6/uL (4.20-5.40); RED CELL DISTRIBUTION WIDTH 13.2 % (12.0-15.0); WHITE BLOOD COUNT 10.1 x10^3/uL (4.8-10.8)
[2019-11-04 11:13] LABS: ALBUMIN 4.2 g/dL (3.2-5.5); ALBUMIN/GLOBULIN RATIO 1.1 (1.0-2.2); BILIRUBIN,TOTAL 0.5 mg/dL (0.2-1.0); CALCIUM 9.2 mg/dL (8.5-10.3); CREATININE 0.8 mg/dL (0.4-1.0); TOTAL PROTEIN 7.9 g/dL (6.7-8.2)
[2019-11-04] MEDS ORDERED: ONDANSETRON 4 MG/2 ML VIAL IVP STA (14:03)
[2019-11-04] MEDS ORDERED: SODIUM CHLORIDE 0.9% 1,000 ML IV ONE (14:03)
[2019-11-04] MEDS ORDERED: KETOROLAC 30 MG/ML VIAL IVP STA (14:03)
--- NOTE | 2019-11-04 14:04 | ED Physician Documentation ---
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 Note she has had her appendix out. She is had recurrent issues with abdominal pain but this is different. This has more of a gastroenteritis type components. She went to sick call and they gave her Zofran and Imodium but she was unable to keep those down. No recent travel. 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 : None HEENT: None Psych: Anxiety Musculoskeletal: None Derm: None - Past Surgical History Past Surgical History: Yes /ASSISTANT ATTORNEY GENERAL: Other HEENT: Tonsil/Adenoidectomy - Present Medications Home Medications: Ambulatory Orders Medication Instructions Recorded Confirmed Norethindrone-E.estradiol-Iron 1 tab ORAL 07/07/18 [[id number]-Guikon-Ml 1-0.02(75)-75] Escitalopram Oxalate [Lexapro] 07/20/19 LORazepam [Lorazepam] 0.5 mg PO TID PRN #10 tablet 07/20/19 Trazodone HCl 1 tab PO QPM 07/20/19 07/20/19 Verapamil [Calan] 80 mg PO DAILY 07/20/19 07/20/19 Metoclopramide [Reglan] 10 mg PO Q6H PRN #10 tablet 10/05/19 buPROPion [Wellbutrin Sr] 150 mg DAILY 10/23/19 10/23/19 Famotidine 20 mg PO DAILY #30 tablet 10/24/19 Hydrocodone/Acetaminophen [[place] 1 each PO Q6H PRN #15 tablet 10/24/19 5-325 Tablet] Lidocaine Viscous 2% [Xylocaine 5 ml PO Q4H PRN #100 ml 10/24/19 Viscous 2%] Ondansetron Odt [Zofran] 4 mg TL Q6H PRN #10 tablet 10/24/19 - Allergies Allergies/Adverse Reactions: Allergies Allergy/AdvReac Type Severity Reaction Status Date / Time Sulfa (Sulfonamide Allergy Unknown Verified 11/04/19 10:27 Antibiotics) propranolol AdvReac Unknown Verified 11/04/19 10:27 - Social History Does the pt smoke?: No Smoking Status: Never smoker Does the pt drink ETOH?: Yes Does the pt have substance abuse?: No - Immunizations Immunizations are current?: Yes - POLST Patient has POLST: No POLST Status: Full Code PD ED PE NORMAL - Vitals Vital signs reviewed: Yes - General General: Alert and oriented X 3, No acute distress - HEENT HEENT: PERRL, EOMI, Moist mucous membranes, Pharynx benign - Abdomen Abdomen: Normal bowel sounds, Soft, Non tender - Back Back: No CVA TTP, No spinal TTP - Derm Derm: Normal color, Warm and dry - Extremities Extremities: No edema, No calf tenderness / cord - Neuro Neuro: Alert and oriented X 3, Normal speech Results - Vitals Vitals: Vital Signs - 24 hr 11/04/19 11/04/19 11/04/19 10:28 12:57 14:25 Temperature 36.8 C 37.0 C Heart Rate 96 100 93 Respiratory 20 20 18 Rate Blood Pressure 116/77 137/102 H 109/83 H O2 Saturation 98 98 99 11/04/19 15:39 Temperature Heart Rate 88 Respiratory 18 Rate Blood Pressure 122/76 O2 Saturation 97 Oxygen O2 Source Room air - Labs Labs: Laboratory Tests 11/04/19 11/04/19 11/04/19 10:48 10:48 14:20 WBC 10.1 RBC 4.66 Hgb 14.0 Hct 41.9 MCV 89.9 MCH 30.0 MCHC 33.4 RDW 13.2 Plt Count 393 MPV 8.7 Neut # (Auto) 7.2 H Lymph # (Auto) 2.0 [place] # (Auto) 0.8 Eos # (Auto) 0.0 Baso # (Auto) 0.1 Absolute Nucleated RBC 0.00 Nucleated RBC % 0.0 Sodium 136 Potassium 3.8 Chloride 100 L Carbon Dioxide 24 Anion Gap 12.0 BUN 13 Creatinine 0.8 Estimated GFR (MDRD) 88 L Glucose 100 Calcium 9.2 Total Bilirubin 0.5 AST 41 ALT 54 Alkaline Phosphatase 75 Total Protein 7.9 Albumin 4.2 Globulin 3.7 Albumin/Globulin Ratio 1.1 Lipase 24 Urine Color YELLOW Urine Clarity CLEAR Urine pH 6.0 Ur Specific [place] >=1.030 H Urine Protein NEGATIVE Urine Glucose (UA) NEGATIVE Urine Ketones NEGATIVE Urine Occult Blood SMALL H Urine Nitrite NEGATIVE Urine Bilirubin NEGATIVE Urine Urobilinogen 0.2 (NORMAL) Ur Leukocyte Esterase NEGATIVE Urine RBC 0-5 Urine WBC 0-3 Ur Squamous Epith Cells MANY Squamous H Urine Bacteria Few Ur Microscopic Review INDICATED Urine Culture Comments NOT INDICATED Urine HCG, Qual NEGATIVE Urine Opiates Screen Ur Oxycodone Screen Urine Methadone Screen Ur Propoxyphene Screen Ur Barbiturates Screen Ur Tricyclics Screen Ur Phencyclidine Scrn Ur Amphetamine Screen U Methamphetamines Scrn U Benzodiazepines Scrn Urine Cocaine Screen U Cannabinoids Screen 11/04/19 14:20 WBC RBC Hgb Hct MCV MCH MCHC RDW Plt Count MPV Neut # (Auto) Lymph # (Auto) [place] # (Auto) Eos # (Auto) Baso # (Auto) Absolute Nucleated RBC Nucleated RBC % Sodium Potassium Chloride Carbon Dioxide Anion Gap BUN Creatinine Estimated GFR (MDRD) Glucose Calcium Total Bilirubin AST ALT Alkaline Phosphatase Total Protein Albumin Globulin Albumin/Globulin Ratio Lipase Urine Color Urine Clarity Urine pH Ur Specific [place] Urine Protein Urine Glucose (UA) Urine Ketones Urine Occult Blood Urine Nitrite Urine Bilirubin Urine Urobilinogen Ur Leukocyte Esterase Urine RBC Urine WBC Ur Squamous Epith Cells Urine Bacteria Ur Microscopic Review Urine Culture Comments Urine HCG, Qual Urine Opiates Screen NEGATIVE Ur Oxycodone Screen NEGATIVE Urine Methadone Screen NEGATIVE Ur Propoxyphene Screen NEGATIVE Ur Barbiturates Screen NEGATIVE Ur Tricyclics Screen NEGATIVE Ur Phencyclidine Scrn NEGATIVE Ur Amphetamine Screen NEGATIVE U Methamphetamines Scrn NEGATIVE U Benzodiazepines Scrn NEGATIVE Urine Cocaine Screen NEGATIVE U Cannabinoids Screen NEGATIVE - Rads (name of study) Pelvci sono Radiology: EMP read contemporaneously (Left ovary not visualized, otherwise negative) PD MEDICAL DECISION MAKING - ED course ED course: 24-year-old woman with abdominal pain, vomiting and diarrhea. She had a remote appendectomy. Kind of sound like gastroenteritis, but review of the chart shows that this is probably a recurrent phenomenon of unclear etiology. Also probably the reason she had her appendix out last year which was a negative laparoscopy. It was difficult to control her pain. As such torsion was entertained in the differential, but ultrasound was negative for same. Encouraged follow-up with OB, this is now a kind of recurrent chronic issue for her. Departure - Departure Disposition: 01 Home, Self Care Clinical Impression: Pelvic pain Condition: Good Record reviewed to determine appropriate education?: Yes Instructions: ED Pelvic Pain [facility], ED Chronic Pain Management Comments: [place] and ongoing medication management. Return for new or worsening symptoms.
[2019-11-04 14:38] LABS: BILIRUBIN,URINE NEGATIVE (NEGATIVE); GLUCOSE, URINE (UA) NEGATIVE (NEGATIVE); KETONES,URINE (UA) NEGATIVE (NEGATIVE); LEUKOCYTE ESTERASE, URINE NEGATIVE (NEGATIVE); NITRITE,URINE NEGATIVE (NEGATIVE); OCCULT BLOOD,URINE SMALL (NEGATIVE); PROTEIN,URINE NEGATIVE (NEGATIVE); UROBILINOGEN,URINE 0.2 (NORMAL) E.U./dL (NORMAL)
[2019-11-04] MEDS ORDERED: DICYCLOMINE 10 MG CAPSULE PO STA (14:38)
[2019-11-04 14:40] LABS: CLARITY,URINE CLEAR (CLEAR); HCG UR QUAL NEGATIVE
[2019-11-04 14:46] LABS: BACTERIA,URINE Few /HPF (None Seen); RBC,URINE 0-5 /HPF (0-5); SQUAMOUS EPITHELIAL CELL,UR MANY Squamous (<= Few)
[2019-11-04 15:03] LABS: MUDS CUTOFF CONCENTRATIONS CUTOFF CONC BELOW:
[2019-11-04 15:17] LABS: AMPHETAMINE SCREEN,URINE NEGATIVE (NEGATIVE); BENZODIAZEPINES SCREEN, URINE NEGATIVE (NEGATIVE); COCAINE SCREEN URINE NEGATIVE (NEGATIVE); METHADONE SCREEN, URINE NEGATIVE (NEGATIVE); METHAMPHETAMINES SCREEN, URINE NEGATIVE (NEGATIVE); OPIATE SCREEN, URINE NEGATIVE (NEGATIVE); OXYCODONE SCREEN, URINE NEGATIVE (NEGATIVE); PROPOXYPHENE SCREEN, URINE NEGATIVE (NEGATIVE); TRICYCLIC ANTIDEPRESSANT,URINE NEGATIVE (NEGATIVE)
[2019-11-04] MEDS ORDERED: HYDROmorphone 1 MG/ML CARPUJECT IVP STA (15:21)
[2019-11-04] MEDS ORDERED: METOCLOPRAMIDE 10 MG/2 ML VIAL IVP STA (16:01)
[2019-11-04] MEDS ORDERED: ACETAMINOPHEN 1,000 MG/100 ML 100 ML IV STA (16:50)
--- NOTE | 2019-11-04 17:49 | Ultrasound Report ---
Reason: pelvic pain, R Procedure Date: 11/04/2019 Accession Number: [id number] / [id number] Procedure: US - Pelvic w/Transvag+Doppler Comp CPT Code: Final Report FULL RESULT: EXAM: PELVIC ULTRASOUND WITH DOPPLERS CLINICAL HISTORY: Right pelvic pain COMPARISON: ABDOMEN/PELVIS W/ 10/05/2019 12:26 AM TECHNIQUE: Realtime transabdominal imaging performed to identify the uterus and adnexa and as an overview of other pelvic structures, followed by transvaginal imaging for better assessment of the endometrium and adnexa, with static image documentation. Color flow imaging and Doppler spectral analysis was performed to evaluate blood flow to the ovaries given pelvic pain and clinical concern for ovarian torsion. FINDINGS: Uterus: 7.6 x 3.6 x 4.5 cm, volume 65 cc. Anteverted position. Normal overall size and echotexture. Masses: None. Endometrium: 11 mm. Normal. Cervix: Unremarkable. Right Ovary: 2.7 x 1.9 x 2.5 cm, volume 6.4 cc. Normal echotexture. Arterial and venous blood flow are present. PSV 9.5 cm/sec. RI 0.6. Adnexa are unremarkable. Left Ovary: Not seen. Adnexa are unremarkable. Free Fluid: None. Other: None. IMPRESSION: 1. Uterus and endometrium are within normal limits. 2. The right ovary is normal in size, echotexture, and vascularity. 3. The left ovary is not seen. RADIA
[2019-11-04 18:18] VITALS: BP 123/69
== END 2019-11-04 18:33 | disposition home or self-care (01) ==
LOC: ED 10:17
DX: R10.2 Pelvic and perineal pain (principal); R11.2 Nausea with vomiting, unspecified; R19.7 Diarrhea, unspecified; Z90.49 Acquired absence of other specified parts of digestive tract
CPT/HCPCS: 36415; 76830; 76856; 80053; 81001; 81025; 83690; 85025; 93975; 96361; 96365; 96375; 99284; 99285; A9270; J0131; J1170; J2765; 80306; 81003; 87086

== ENCOUNTER 2019-11-05 21:07 | Emergency (ER) | payer OTHER ==
--- NOTE | 2019-11-05 21:46 | ED Physician Documentation ---
PD HPI HEAD INJURY - Stated complaint Stated Complaint: ABD PX/PASSED OUT/HEAD INJ - Chief complaint Chief Complaint: Heent - History of Present Illness Mechanism of head injury: Fell (The patient reports that today she slipped and fell and hit the back of her head. She denies any other complaints. Patient denies any neck pain or any upper or lower extremity weakness.She denies any facial pain she does report that she has a small nosebleed but she reports that it is under control she denies being anticoagulated.She denies hitting her face.) Where head injury occurred: Home Review of Systems Ten Systems: 10 systems reviewed and negative Constitutional: reports: Reviewed and negative Eyes: reports: Reviewed and negative Ears: reports: Reviewed and negative Nose: reports: Reviewed and negative Throat: reports: Reviewed and negative Cardiac: reports: Reviewed and negative Respiratory: reports: Reviewed and negative GI: reports: Reviewed and negative : reports: Reviewed and negative Skin: reports: Reviewed and negative Musculoskeletal: reports: Reviewed and negative Neurologic: reports: LOC, Reviewed and negative Psychiatric: reports: Reviewed and negative Endocrine: reports: Reviewed and negative Immunocompromised: reports: Reviewed and negative PD PAST MEDICAL HISTORY - Past Medical History Cardiovascular: None Respiratory: None Neuro: Headaches, Migraines Endocrine/Autoimmune: None GI: None ARMOR OFFICER: Endometriosis : None HEENT: None Psych: Anxiety Musculoskeletal: None Derm: None - Past Surgical History Past Surgical History: Yes /ARMOR OFFICER: Other HEENT: Tonsil/Adenoidectomy - Present Medications Home Medications: Ambulatory Orders Medication Instructions Recorded Confirmed Norethindrone-E.estradiol-Iron 1 tab ORAL 07/07/18 [[id number]-[id number]-Sr 1-0.02(50)-75] Escitalopram Oxalate [Lexapro] 07/20/19 LORazepam [Lorazepam] 0.5 mg PO TID PRN #10 tablet 07/20/19 Trazodone HCl 1 tab PO QPM 07/20/19 07/20/19 Verapamil [Calan] 80 mg PO DAILY 07/20/19 07/20/19 Metoclopramide [Reglan] 10 mg PO Q6H PRN #10 tablet 10/05/19 buPROPion [Wellbutrin Sr] 150 mg DAILY 10/23/19 10/23/19 Famotidine 20 mg PO DAILY #30 tablet 10/24/19 Hydrocodone/Acetaminophen [[place] 1 each PO Q6H PRN #15 tablet 10/24/19 5-325 Tablet] Lidocaine Viscous 2% [Xylocaine 5 ml PO Q4H PRN #100 ml 10/24/19 Viscous 2%] Ondansetron Odt [Zofran] 4 mg TL Q6H PRN #10 tablet 10/24/19 - Allergies Allergies/Adverse Reactions: Allergies Allergy/AdvReac Type Severity Reaction Status Date / Time Sulfa (Sulfonamide Allergy Unknown Verified 11/05/19 21:12 Antibiotics) propranolol AdvReac Unknown Verified 11/05/19 21:12 - Social History Does the pt smoke?: No Smoking Status: Never smoker Does the pt drink ETOH?: Yes Does the pt have substance abuse?: No - Immunizations Immunizations are current?: Yes - POLST Patient has POLST: No POLST Status: Full Code PD ED PE NORMAL - Vitals Vital signs reviewed: Yes - General General: Alert and oriented X 3, No acute distress - HEENT HEENT: PERRL, Other (There is a mild amount of bleeding in bilateral knee as there is no evidence of acute epistaxis there is no septal hematoma the nasal septum is midline.There is no acute missing teeth, there is no septal hematoma there is no raccoon eyes no anders sign there is some posterior scalp tenderness but no obvious deformities. The trachea is midline) - Neck Neck: Supple, no meningeal sign - Cardiac Cardiac: RRR, No murmur - Respiratory Respiratory: Clear bilaterally - Abdomen Abdomen: Normal bowel sounds, Soft, Non tender, Non distended - Derm Derm: Warm and dry - Extremities Extremities: No deformity - Neuro Neuro: Alert and oriented X 3 - Psych Psych: Normal mood, Normal affect Results - Vitals Vitals: Vital Signs - 24 hr 11/05/19 11/05/19 21:12 22:18 Temperature 36.5 C Heart Rate 111 H 93 Respiratory 14 18 Rate Blood Pressure 144/80 H 157/103 H O2 Saturation 98 97 Oxygen O2 Source Room air Departure - Departure Disposition: 01 Home, Self Care Clinical Impression: Concussion Qualifiers: Encounter type: initial encounter Loss of consciousness presence/duration: with LOC of 30 min or less Qualified Code(s): S06.0X1A - Concussion with loss of consciousness of 30 minutes or less, initial encounter Condition: Good Instructions: Concussion Dc Follow-Up: YOUR,FLIGHT SURGEON TOMORROW [Other]
[2019-11-05 22:19] VITALS: BP 157/103
--- NOTE | 2019-11-05 22:53 | CT Report ---
Reason: HEAD TRAUMA Procedure Date: 11/05/2019 Accession Number: [id number] / [id number] Procedure: CT - HEAD WO CPT Code: Final Report FULL RESULT: EXAM: CT HEAD EXAM DATE: 11/05/2019 10:32 PM. CLINICAL HISTORY: HEAD TRAUMA. COMPARISON: None. TECHNIQUE: Multiaxial CT images were obtained from the foramen magnum to the vertex. Reformats: Sagittal and coronal. IV contrast: None. In accordance with CT protocol optimization, one or more of the following dose reduction techniques were utilized for this exam: automated exposure control, adjustment of mA and/or KV based on patient size, or use of iterative reconstructive technique. FINDINGS: Parenchyma: No intraparenchymal hemorrhage. No evidence of mass, midline shift, or CT findings of infarction. Limon-white differentiation is distinct. Extraaxial Spaces: Normal for age. No subdural or epidural collections identified. Ventricles: Normal in size and position. Sinuses and Orbits: Imaged paranasal sinuses, orbits, and mastoids show no significant abnormality. Bones: No evidence of fracture or calvarial defect. Other: None. IMPRESSION: No acute traumatic intracranial abnormality. RADIA
== END 2019-11-05 23:32 | disposition home or self-care (01) ==
LOC: ED 21:07
DX: S06.0X1A Concussion with loss of consciousness of 30 minutes or less, initial encounter (principal); W01.0XXA Fall on same level from slipping, tripping and stumbling without subsequent striking against object, initial encounter; Y92.009 Unspecified place in unspecified non-institutional (private) residence as the place of occurrence of the external cause
CPT/HCPCS: 70450; 99283; 99284

== ENCOUNTER 2019-11-12 08:55 | Emergency (ER) | payer OTHER ==
--- NOTE | 2019-11-12 09:36 | ED Physician Documentation ---
PD HPI ABD PAIN - Stated complaint Stated Complaint: ABD PX - Chief complaint Chief Complaint: Abd Pain - History obtained from History obtained from: Patient - History of Present Illness Timing - onset: Today Timing - duration: Days Timing - details: Abrupt onset Quality: Aching, Sharp, Pain Location: RLQ, Suprapubic Radiation: Lower back. No: Chest, Right flank Worsened by: Breathing, Palpation. No: Eating Associated symptoms: Nausea. No: Fever, Vomiting, Diarrhea, Constipation, Dysuria, Hematuria, Vaginal bleeding (due for her period in few days) Similar symptoms before: Diagnosis (has had pain with endometriosis, and is on triphasic OCPs by her GENETICS NURSE. Gets pains with periods significantly, worst the past few menses. Is not on period currently, but wtithin few days.) Review of Systems Constitutional: denies: Fever, Chills Cardiac: denies: Chest pain / pressure, Palpitations Respiratory: denies: Dyspnea, Cough GI: reports: Abdominal Pain, Nausea. denies: Hematemesis, Bloody / black stool : reports: Irregular menses. denies: Dysuria, Frequency, Discharge Neurologic: reports: Generalized weakness. denies: Near syncope Endocrine: reports: Weight gain. denies: Weight loss PD PAST MEDICAL HISTORY - Past Medical History Cardiovascular: None Respiratory: None Neuro: Headaches, Migraines Endocrine/Autoimmune: None GI: None GENETICS NURSE: Endometriosis : None HEENT: None Psych: Anxiety Musculoskeletal: None Derm: None - Past Surgical History Past Surgical History: Yes General: Appendectomy /GENETICS NURSE: Other HEENT: Tonsil/Adenoidectomy - Present Medications Home Medications: Ambulatory Orders Medication Instructions Recorded Confirmed Norethindrone-E.estradiol-Iron 1 tab ORAL 07/07/18 [[id number]-[id number] 1-0.02(14)-75] Escitalopram Oxalate [Lexapro] 07/20/19 LORazepam [Lorazepam] 0.5 mg PO TID PRN #10 tablet 07/20/19 Trazodone HCl 1 tab PO QPM 07/20/19 07/20/19 Verapamil [Calan] 80 mg PO DAILY 07/20/19 07/20/19 Metoclopramide [Reglan] 10 mg PO Q6H PRN #10 tablet 10/05/19 buPROPion [Wellbutrin Sr] 150 mg DAILY 10/23/19 10/23/19 Famotidine 20 mg PO DAILY #30 tablet 10/24/19 Hydrocodone/Acetaminophen [[place] 1 each PO Q6H PRN #15 tablet 10/24/19 5-325 Tablet] Lidocaine Viscous 2% [Xylocaine 5 ml PO Q4H PRN #100 ml 10/24/19 Viscous 2%] Ondansetron Odt [Zofran] 4 mg TL Q6H PRN #10 tablet 10/24/19 Hydrocodone/Acetaminophen [[place] 1 each PO Q6H PRN #15 tablet 11/12/19 5-325 Tablet] Naproxen 375 mg PO BID #20 tablet 11/12/19 Ondansetron Odt [Zofran] 4 mg TL Q6H PRN #10 tablet 11/12/19 - Allergies Allergies/Adverse Reactions: Allergies Allergy/AdvReac Type Severity Reaction Status Date / Time Sulfa (Sulfonamide Allergy Unknown Verified 11/12/19 09:06 Antibiotics) propranolol AdvReac Unknown Verified 11/12/19 09:06 - Social History Does the pt smoke?: No Smoking Status: Never smoker Does the pt drink ETOH?: Yes Does the pt have substance abuse?: No - Immunizations Immunizations are current?: Yes - POLST Patient has POLST: No POLST Status: Full Code PD ED PE NORMAL - Vitals Vital signs reviewed: Yes - General General: Alert and oriented X 3, No acute distress, Well developed/nourished - HEENT HEENT: Pharynx benign - Neck Neck: Supple, no meningeal sign, No adenopathy - Cardiac Cardiac: RRR, No murmur - Respiratory Respiratory: Clear bilaterally - Abdomen Abdomen: Normal bowel sounds, Soft, Non distended, No organomegaly, Other (tender RLQ and suprapubic area with local guarding and percussion tenderness. No rebound. ) - Female Female : Deferred - Rectal Rectal: Deferred - Back Back: No CVA TTP - Derm Derm: Normal color, Warm and dry - Extremities Extremities: No deformity, No tenderness to palpate, Normal ROM s pain, No edema, No calf tenderness / cord - Neuro Neuro: Alert and oriented X 3, No motor deficit, Normal speech Results - Vitals Vitals: Vital Signs - 24 hr 11/12/19 11/12/19 09:06 12:48 Temperature 36.9 C 36.7 C Heart Rate 78 69 Respiratory 15 16 Rate Blood Pressure 122/108 H 122/98 H O2 Saturation 99 100 Oxygen O2 Source Room air - Labs Labs: Laboratory Tests 11/12/19 11:46 Urine Color LIGHT YELLOW Urine Clarity CLEAR Urine pH 7.0 Ur Specific [place] <=1.005 Urine Protein NEGATIVE Urine Glucose (UA) NEGATIVE Urine Ketones NEGATIVE Urine Occult Blood TRACE-LYSE Urine Nitrite NEGATIVE Urine Bilirubin NEGATIVE Urine Urobilinogen 0.2 (NORMAL) Ur Leukocyte Esterase NEGATIVE Ur Microscopic Review NOT INDICATED Urine Culture Comments NOT INDICATED Urine HCG, Qual NEGATIVE - Rads (name of study) pelvic U/S Radiology: Prelim report reviewed (no acute process. No free fluid. ), See rad report PD MEDICAL DECISION MAKING - ED course Complexity details: re-evaluated patient (improved pain after IV meds. She states she is not on pain contract. ), considered differential (likely endometriosis or cysts. However, consider ruptured cyst, internal bleeding, or ovarian torsion. She has appendix out already.) Departure - Departure Disposition: 01 Home, Self Care Clinical Impression: Right lower quadrant abdominal pain Condition: Stable Record reviewed to determine appropriate education?: Yes Instructions: ED Pelvic Pain [facility] Follow-Up: Naseem Fajardo MD [Primary Care Provider] - Prescriptions: Hydrocodone/Acetaminophen [[place] 5-325 Tablet] 1 each PO Q6H PRN #15 tablet PRN Reason: Pain Naproxen 375 mg PO BID #20 tablet Ondansetron Odt [Zofran] 4 mg TL Q6H PRN #10 tablet PRN Reason: Nausea / Vomiting Comments: Your ultrasound did not show any signs of free fluid or abnormal blood flow to the ovary. Your urine did not show any signs of infection. You may be having some endometrial inflammation. There could be some scar tissue or such as well. Use anti-inflammatory of naproxen twice daily for the next week to 10 days. Ondansetron if needed for nausea. To that add Tylenol or hydrocodone if needed for pains. Follow-up with your primary care or gynecology if not improving over the next few days. Continue with your oral contraceptive. Discuss with your glass or mirror inspector about an anovulatory control. Discharge Date/Time: 11/12/19 13:45
[2019-11-12] MEDS ORDERED: oxyCODONE 5 MG TABLET PO STA (10:01)
[2019-11-12] MEDS ORDERED: KETOROLAC 30 MG/ML VIAL IM STA (10:01)
[2019-11-12] MEDS ORDERED: ONDANSETRON ODT 4 MG TABLET TL STA (11:42)
[2019-11-12 11:52] LABS: BILIRUBIN,URINE NEGATIVE (NEGATIVE); CLARITY,URINE CLEAR (CLEAR); GLUCOSE, URINE (UA) NEGATIVE (NEGATIVE); KETONES,URINE (UA) NEGATIVE (NEGATIVE); LEUKOCYTE ESTERASE, URINE NEGATIVE (NEGATIVE); NITRITE,URINE NEGATIVE (NEGATIVE); OCCULT BLOOD,URINE TRACE-LYSE (NEGATIVE); PROTEIN,URINE NEGATIVE (NEGATIVE); UROBILINOGEN,URINE 0.2 (NORMAL) E.U./dL (NORMAL)
[2019-11-12 11:54] LABS: HCG UR QUAL NEGATIVE
--- NOTE | 2019-11-12 11:54 | Ultrasound Report ---
Reason: right pelvic pain abrupt today Procedure Date: 11/12/2019 Accession Number: [id number] / [id number] Procedure: US - Pelvic w/Transvag+Doppler Ltd CPT Code: Final Report FULL RESULT: EXAM: PELVIC ULTRASOUND WITH DOPPLERS CLINICAL HISTORY: Right pelvic pain, abrupt today. COMPARISON: PEL NON OB W/TV DOP LTD 12/18/2017 12:35 PM TECHNIQUE: Realtime transabdominal imaging performed to identify the uterus and adnexa and as an overview of other pelvic structures, followed by transvaginal imaging for better assessment of the endometrium and adnexa, with static image documentation. Color flow imaging and Doppler spectral analysis was performed to evaluate blood flow to the ovaries given pelvic pain and clinical concern for ovarian torsion. FINDINGS: Uterus: 7.3 x 4.0 x 5.2 cm, volume 79 cc. Anteverted position. Normal overall size and echotexture. Masses: None. Endometrium: 8 mm. Normal. Cervix: Unremarkable. Right Ovary: 2.2 x 1.8 x 1.8 cm, volume 3.7 cc. Normal echotexture. Arterial and venous blood flow are present. PSV 13 cm/sec. RI 0.63. Adnexa are unremarkable. Left Ovary: 2.2 x 1.8 x 1.6 cm, volume 3.3 cc. Normal echotexture. Arterial and venous blood flow are present. PSV 9 cm/sec. RI 0.46. Adnexa are unremarkable. Free Fluid: None. Other: None. IMPRESSION: 1. Normal pelvic ultrasound. 2. Arterial and venous blood flow are present to the ovaries bilaterally. RADIA
[2019-11-12 12:49] VITALS: BP 122/98
[2019-11-12] MEDS ORDERED: HYDROmorphone 1 MG/ML CARPUJECT IM STA (12:55)
== END 2019-11-12 13:45 | disposition home or self-care (01) ==
LOC: ED 08:55
DX: R10.31 Right lower quadrant pain (principal); R11.0 Nausea; R53.1 Weakness
CPT/HCPCS: 76830; 76856; 81003; 81025; 93976; 96372; 99284; A9270; J1170; Q0162; 81001; 87086

== ENCOUNTER 2019-11-27 08:39 | Emergency (ER) | payer OTHER ==
[2019-11-27] MEDS ORDERED: SODIUM CHLORIDE 0.9% 1,000 ML IV ONE (09:32)
[2019-11-27] MEDS ORDERED: ONDANSETRON 4 MG/2 ML VIAL IVP STA (09:32)
--- NOTE | 2019-11-27 09:35 | ED Physician Documentation ---
PD HPI NVD - Stated complaint Stated Complaint: NAUSEA/VOMITING - Chief complaint Chief Complaint: Abd Pain - History obtained from History obtained from: Patient - History of Present Illness Timing - onset: How many days ago (5) Timing - duration: Days (5) Timing - details: Gradual onset, Still present Associated symptoms: Abdominal pain, Dizzy, Near syncope / syncope, Loss of appetite Improved by: Vomiting, Meds Similar symptoms before: Diagnosis (gastroenteritis) Recently seen: Clinic - Additonal information Additional information: 24-year-old female with frequent emergency department visits has developed nausea vomiting and diarrhea beginning about 5 days ago. She was seen at the [facility] on Sunday of this week and she was given some Zofran at that time she was not given fluids. She was subsequently given loperamide as well for the diarrhea and she has had a second dose of the Zofran yesterday. She has been out of work and states that she has not been able to hold anything down since Sunday and she has not had any urine output since Sunday. Today is . Review of Systems Constitutional: reports: Fatigue. denies: Fever, Chills Eyes: denies: Decreased vision Nose: denies: Rhinorrhea / runny nose, Congestion Throat: denies: Sore throat Cardiac: denies: Chest pain / pressure, Palpitations Respiratory: denies: Dyspnea, Cough GI: reports: Abdominal Pain, Nausea, Vomiting, Diarrhea : reports: Unable to Void. 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 : None HEENT: None Psych: Anxiety Musculoskeletal: None Derm: None - Past Surgical History Past Surgical History: Yes General: Appendectomy /METAL BALER: Other HEENT: Tonsil/Adenoidectomy - Present Medications Home Medications: Ambulatory Orders Medication Instructions Recorded Confirmed Norethindrone-E.estradiol-Iron 1 tab ORAL 07/07/18 [[id number]-Rkqaol-Xj 1-0.02(26)-75] Escitalopram Oxalate [Lexapro] 07/20/19 LORazepam [Lorazepam] 0.5 mg PO TID PRN #10 tablet 07/20/19 Trazodone HCl 1 tab PO QPM 07/20/19 07/20/19 Verapamil [Calan] 80 mg PO DAILY 07/20/19 07/20/19 Metoclopramide [Reglan] 10 mg PO Q6H PRN #10 tablet 10/05/19 buPROPion [Wellbutrin Sr] 150 mg DAILY 10/23/19 10/23/19 Famotidine 20 mg PO DAILY #30 tablet 10/24/19 Hydrocodone/Acetaminophen [[place] 1 each PO Q6H PRN #15 tablet 10/24/19 5-325 Tablet] Lidocaine Viscous 2% [Xylocaine 5 ml PO Q4H PRN #100 ml 10/24/19 Viscous 2%] Ondansetron Odt [Zofran] 4 mg TL Q6H PRN #10 tablet 10/24/19 Hydrocodone/Acetaminophen [[place] 1 each PO Q6H PRN #15 tablet 11/12/19 5-325 Tablet] Naproxen 375 mg PO BID #20 tablet 11/12/19 Ondansetron Odt [Zofran] 4 mg TL Q6H PRN #10 tablet 11/12/19 Ondansetron Odt [Zofran] 4 mg TL Q6H PRN #10 tablet 11/27/19 - Allergies Allergies/Adverse Reactions: Allergies Allergy/AdvReac Type Severity Reaction Status Date / Time Sulfa (Sulfonamide Allergy Unknown Verified 11/27/19 08:55 Antibiotics) propranolol AdvReac Unknown Verified 11/27/19 08:55 - Social History Does the pt smoke?: No Smoking Status: Never smoker Does the pt drink ETOH?: Yes Does the pt have substance abuse?: No - Immunizations Immunizations are current?: Yes - POLST Patient has POLST: No POLST Status: Full Code PD ED PE NORMAL - Vitals Vital signs reviewed: Yes (normal ) - General General: Alert and oriented X 3, No acute distress, Well developed/nourished - HEENT HEENT: Atraumatic, PERRL, EOMI, Ears normal, Moist mucous membranes - Neck Neck: Supple, no meningeal sign, No bony TTP - Cardiac Cardiac: No murmur, Other (tachy t0 100) - Respiratory Respiratory: No respiratory distress, Clear bilaterally - Abdomen Abdomen: Soft, Non tender, Non distended - Back Back: No CVA TTP, No spinal TTP - Derm Derm: Normal color, Warm and dry, No rash - Extremities Extremities: No deformity, No edema, No calf tenderness / cord - Neuro Neuro: Alert and oriented X 3, medical biller coder 2-12 intact, No motor deficit, No sensory deficit, Normal speech Eye Opening: Spontaneous Motor: Obeys Commands Verbal: Oriented GCS Score: 15 - Psych Psych: Normal mood, Normal affect Results - Vitals Vitals: Vital Signs - 24 hr 11/27/19 08:52 Temperature 36.6 C Heart Rate 99 Respiratory 16 Rate Blood Pressure 116/79 O2 Saturation 100 Oxygen O2 Source Room air - Labs Labs: Laboratory Tests 11/27/19 11/27/19 11/27/19 09:50 09:50 09:50 WBC 8.3 RBC 4.40 Hgb 13.3 Hct 39.7 MCV 90.2 MCH 30.2 MCHC 33.5 RDW 13.0 Plt Count 372 MPV 8.7 Neut # (Auto) 5.9 Lymph # (Auto) 1.6 [place] # (Auto) 0.6 Eos # (Auto) 0.1 Baso # (Auto) 0.1 Absolute Nucleated RBC 0.00 Nucleated RBC % 0.0 Sodium 138 Potassium 3.8 Chloride 100 L Carbon Dioxide 26 Anion Gap 12.0 BUN 14 Creatinine 0.9 Estimated GFR (MDRD) 77 L Glucose 92 Lactic Acid 0.9 Calcium 9.3 Total Bilirubin 1.0 AST 25 ALT 25 Alkaline Phosphatase 74 Total Protein 7.4 Albumin 4.2 Globulin 3.2 Albumin/Globulin Ratio 1.3 Lipase 32 Urine Color Urine Clarity Urine pH Ur Specific [place] Urine Protein Urine Glucose (UA) Urine Ketones Urine Occult Blood Urine Nitrite Urine Bilirubin Urine Urobilinogen Ur Leukocyte Esterase Urine RBC Urine WBC Ur Squamous Epith Cells Urine Bacteria Ur Microscopic Review Urine Culture Comments 11/27/19 10:15 WBC RBC Hgb Hct MCV MCH MCHC RDW Plt Count MPV Neut # (Auto) Lymph # (Auto) [place] # (Auto) Eos # (Auto) Baso # (Auto) Absolute Nucleated RBC Nucleated RBC % Sodium Potassium Chloride Carbon Dioxide Anion Gap BUN Creatinine Estimated GFR (MDRD) Glucose Lactic Acid Calcium Total Bilirubin AST ALT Alkaline Phosphatase Total Protein Albumin Globulin Albumin/Globulin Ratio Lipase Urine Color YELLOW Urine Clarity HAZY Urine pH 7.5 Ur Specific [place] 1.015 Urine Protein NEGATIVE Urine Glucose (UA) NEGATIVE Urine Ketones NEGATIVE Urine Occult Blood TRACE-INTA Urine Nitrite NEGATIVE Urine Bilirubin NEGATIVE Urine Urobilinogen 0.2 (NORMAL) Ur Leukocyte Esterase NEGATIVE Urine RBC 0-5 Urine WBC 0-3 Ur Squamous Epith Cells MOD Squamous H Urine Bacteria Few Ur Microscopic Review INDICATED Urine Culture Comments NOT INDICATED Procedures - IVC sono (time) 0930 Bedside IVC sono: IVC measures (cm) (1.09), IVC collapsed c insp (cm) (complete), Dehydration (est 1+ liter deficit.) PD MEDICAL DECISION MAKING - ED course Complexity details: reviewed old records, reviewed results, re-evaluated patient, considered differential, d/w patient ED course: 28-vqer-[age]zov-old female with a high day history of GI illness indicates that she has not had urine output for 2 days she does have some urine in the bladder she is mildly dehydrated. I would expect more dehydration from her description. Irregardless she does have some dehydration and she is administered saline 1 L intravenously as well as Zofran. Departure - Departure Disposition: 01 Home, Self Care Clinical Impression: Gastroenteritis, Dehydration Condition: Stable Instructions: ED Dehydration, ED Gastroenteritis Viral Follow-Up: Naseem Fajardo MD [Primary Care Provider] - Prescriptions: Ondansetron Odt [Zofran] 4 mg TL Q6H PRN #10 tablet PRN Reason: Nausea / Vomiting
[2019-11-27 10:01] LABS: BASOPHILS # (AUTO) 0.1 10^3/uL (0.0-0.1); BASOPHILS % (AUTO) 0.7 %; EOSINOPHILS # (AUTO) 0.1 10^3/uL (0.0-0.7); EOSINOPHILS % (AUTO) 0.6 %; HGB - HEMOGLOBIN 13.3 g/dL (12.0-16.0); LYMPHOCYTES # (AUTO) 1.6 10^3/uL (1.5-3.5); LYMPHOCYTES % (AUTO) 19.8 %; MEAN CORPUSCULAR HEMOGLOBIN 30.2 pg (27.0-31.0); MEAN CORPUSCULAR HGB CONC 33.5 g/dL (32.0-36.0); MEAN CORPUSCULAR VOLUME 90.2 fL (81.0-99.0); MEAN PLATELET VOLUME 8.7 fL (7.9-10.8); MONOCYTES # (AUTO) 0.6 10^3/uL (0.0-1.0); MONOCYTES % (AUTO) 7.5 %; NEUTROPHILS # (AUTO) 5.9 10^3/uL (1.5-6.6); PLT - PLATELET COUNT 372 10^3/uL (130-450); WHITE BLOOD COUNT 8.3 x10^3/uL (4.8-10.8)
[2019-11-27 10:17] LABS: ALBUMIN 4.2 g/dL (3.2-5.5); ALBUMIN/GLOBULIN RATIO 1.3 (1.0-2.2); CALCIUM 9.3 mg/dL (8.5-10.3); CREATININE 0.9 mg/dL (0.4-1.0); TOTAL PROTEIN 7.4 g/dL (6.7-8.2)
[2019-11-27 10:27] LABS: BILIRUBIN,URINE NEGATIVE (NEGATIVE); GLUCOSE, URINE (UA) NEGATIVE (NEGATIVE); KETONES,URINE (UA) NEGATIVE (NEGATIVE); LEUKOCYTE ESTERASE, URINE NEGATIVE (NEGATIVE); NITRITE,URINE NEGATIVE (NEGATIVE); OCCULT BLOOD,URINE TRACE-INTA (NEGATIVE); PH,URINE 7.5 PH (5.0-7.5); PROTEIN,URINE NEGATIVE (NEGATIVE); UROBILINOGEN,URINE 0.2 (NORMAL) E.U./dL (NORMAL)
[2019-11-27 10:29] LABS: CLARITY,URINE HAZY (CLEAR)
[2019-11-27 10:38] LABS: BACTERIA,URINE Few /HPF (None Seen); RBC,URINE 0-5 /HPF (0-5); SQUAMOUS EPITHELIAL CELL,UR MOD Squamous (<= Few)
[2019-11-27 10:55] VITALS: BP 132/93
== END 2019-11-27 11:20 | disposition home or self-care (01) ==
LOC: ED 08:39
DX: K52.9 Noninfective gastroenteritis and colitis, unspecified (principal); E86.0 Dehydration
CPT/HCPCS: 36415; 80053; 81001; 81003; 83605; 83690; 85025; 87086; 99283; 99284

== ENCOUNTER 2019-11-30 23:01 | Emergency (ER) | payer OTHER ==
--- NOTE | 2019-11-30 23:06 | ED Physician Documentation ---
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 She denies any va ginal bleeding or discharge or dysuria or gross hematuria she reports chronic pelvic pain and chronic abdominal pain for which she is had multiple visits to the ER, the patient reports that she has been here "too many times to count".She reports associated nausea without vomiting or diarrhea or constipation.The patient currently states that she is on oral control pills.She tried taking Aleve prior to arrival but it did not help her symptoms.) Review of Systems Constitutional: reports: Reviewed and negative Eyes: reports: Reviewed and negative Ears: reports: Reviewed and negative Nose: reports: Reviewed and negative Throat: reports: Reviewed and negative Cardiac: reports: Reviewed and negative Respiratory: reports: Reviewed and negative GI: reports: Abdominal Pain : reports: Reviewed and negative Skin: reports: Reviewed and negative Musculoskeletal: reports: Reviewed and negative Neurologic: reports: Reviewed and negative Psychiatric: reports: Reviewed and negative Endocrine: reports: Reviewed and negative Immunocompromised: reports: Reviewed and negative PD PAST MEDICAL HISTORY - Past Medical History Cardiovascular: None Respiratory: None Neuro: Headaches, Migraines Endocrine/Autoimmune: None GI: None [employer]: Endometriosis : None HEENT: None Psych: Anxiety Musculoskeletal: None Derm: None - Past Surgical History Past Surgical History: Yes General: Appendectomy /[employer]: Other HEENT: Tonsil/Adenoidectomy - Present Medications Home Medications: Ambulatory Orders Medication Instructions Recorded Confirmed Norethindrone-E.estradiol-Iron 1 tab ORAL 07/07/18 [Ojqndm-Ccudmk-Pb 1-0.02(06)-75] Escitalopram Oxalate [Lexapro] 07/20/19 LORazepam [Lorazepam] 0.5 mg PO TID PRN #10 tablet 07/20/19 Trazodone HCl 1 tab PO QPM 07/20/19 07/20/19 Verapamil [Calan] 80 mg PO DAILY 07/20/19 07/20/19 Metoclopramide [Reglan] 10 mg PO Q6H PRN #10 tablet 10/05/19 buPROPion [Wellbutrin Sr] 150 mg DAILY 10/23/19 10/23/19 Famotidine 20 mg PO DAILY #30 tablet 10/24/19 Hydrocodone/Acetaminophen [[place] 1 each PO Q6H PRN #15 tablet 10/24/19 5-325 Tablet] Lidocaine Viscous 2% [Xylocaine 5 ml PO Q4H PRN #100 ml 10/24/19 Viscous 2%] Ondansetron Odt [Zofran] 4 mg TL Q6H PRN #10 tablet 10/24/19 Hydrocodone/Acetaminophen [[place] 1 each PO Q6H PRN #15 tablet 11/12/19 5-325 Tablet] Naproxen 375 mg PO BID #20 tablet 11/12/19 Ondansetron Odt [Zofran] 4 mg TL Q6H PRN #10 tablet 11/12/19 Ondansetron Odt [Zofran] 4 mg TL Q6H PRN #10 tablet 11/27/19 - Allergies Allergies/Adverse Reactions: Allergies Allergy/AdvReac Type Severity Reaction Status Date / Time Sulfa (Sulfonamide Allergy Unknown Verified 11/30/19 23:09 Antibiotics) propranolol AdvReac Unknown Verified 11/30/19 23:09 - Social History Does the pt smoke?: No Smoking Status: Never smoker Does the pt drink ETOH?: Yes Does the pt have substance abuse?: No - Immunizations Immunizations are current?: Yes - POLST Patient has POLST: No POLST Status: Full Code PD ED PE NORMAL - Vitals Vital signs reviewed: Yes - General General: Alert and oriented X 3, No acute distress, Well developed/nourished, Other (The patient is tearful, Nontoxic and nonseptic.) - HEENT HEENT: Atraumatic, PERRL - Neck Neck: Supple, no meningeal sign - Cardiac Cardiac: RRR, Strong equal pulses - Respiratory Respiratory: No respiratory distress, Clear bilaterally - Abdomen Abdomen: Normal bowel sounds, Soft, Non distended, Other (The abdomen is tender in the right side of the abdomen diffusely there is no midline abdominal pulsatile mass there is no peritoneal signs currently.) - Back Back: No spinal TTP, Other (Positive for right-sided CVA tenderness) - Derm Derm: Normal color, Warm and dry, No rash - Extremities Extremities: No deformity, Normal ROM s pain, No edema - Neuro Neuro: Alert and oriented X 3, 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, No motor deficit, No sensory deficit, Normal speech - Psych Psych: Normal mood, Normal affect Results - Vitals Vitals: Vital Signs - 24 hr 11/30/19 11/30/19 12/01/19 23:05 23:28 02:42 Temperature 36.9 C Heart Rate 115 H 95 Heart Rate [ 122 H Sitting] Heart Rate [ 116 H Standing] Heart Rate [ 115 H Supine] Respiratory 20 16 Rate Blood Pressure 127/85 H 115/79 Blood Pressure 130/92 H [Sitting] Blood Pressure 141/125 H [Standing] Blood Pressure 134/88 H [Supine] O2 Saturation 100 96 Oxygen O2 Source Room air - Labs Labs: Laboratory Tests 12/01/19 12/01/19 12/01/19 00:05 00:05 00:33 WBC 13.8 H RBC 4.27 Hgb 13.0 Hct 37.8 MCV 88.5 MCH 30.4 MCHC 34.4 RDW 12.9 Plt Count 414 MPV 8.6 Neut # (Auto) 8.7 H Lymph # (Auto) 3.9 H Hickman # (Auto) 0.9 Eos # (Auto) 0.1 Baso # (Auto) 0.1 Absolute Nucleated RBC 0.00 Nucleated RBC % 0.0 Sodium Potassium Chloride Carbon Dioxide Anion Gap BUN Creatinine Estimated GFR (MDRD) Glucose Calcium Total Bilirubin AST ALT Alkaline Phosphatase Total Protein Albumin Globulin Albumin/Globulin Ratio Lipase Urine Color YELLOW Urine Clarity CLEAR Urine pH 5.5 Ur Specific [place] 1.025 1.025 Urine Protein NEGATIVE Urine Glucose (UA) NEGATIVE Urine Ketones NEGATIVE Urine Occult Blood LARGE H Urine Nitrite NEGATIVE Urine Bilirubin NEGATIVE Urine Urobilinogen 0.2 (NORMAL) Ur Leukocyte Esterase NEGATIVE Urine RBC 11-25 H Urine WBC 0-3 Ur Squamous Epith Cells MOD Squamous H Urine Bacteria Rare Ur Microscopic Review INDICATED Urine Culture Comments NOT INDICATED Urine HCG, Qual NEGATIVE 12/01/19 00:33 WBC RBC Hgb Hct MCV MCH MCHC RDW Plt Count MPV Neut # (Auto) Lymph # (Auto) Hickman # (Auto) Eos # (Auto) Baso # (Auto) Absolute Nucleated RBC Nucleated RBC % Sodium 141 Potassium 3.7 Chloride 106 Carbon Dioxide 21 Anion Gap 14.0 H BUN 11 Creatinine 0.9 Estimated GFR (MDRD) 77 L Glucose 109 H Calcium 9.2 Total Bilirubin 0.5 AST 20 ALT 26 Alkaline Phosphatase 74 Total Protein 7.4 Albumin 3.9 Globulin 3.5 Albumin/Globulin Ratio 1.1 Lipase 34 Urine Color Urine Clarity Urine pH Ur Specific [place] Urine Protein Urine Glucose (UA) Urine Ketones Urine Occult Blood Urine Nitrite Urine Bilirubin Urine Urobilinogen Ur Leukocyte Esterase Urine RBC Urine WBC Ur Squamous Epith Cells Urine Bacteria Ur Microscopic Review Urine Culture Comments Urine HCG, Qual PD MEDICAL DECISION MAKING - ED course Complexity details: re-evaluated patient (patient reexamined, abd soft, pain improved, updated on results. will dc home with close follow up. patient expresses understanding and states has appointment tomorrow.), other (The patient has been to the emergency department multiple times and is well-known to the emergency department she has chronic abdominal pain and chronic pelvic pain her labs show no acute signs of infection however her urinalysis does show some blood she is complaining of right-sided flank pain will get a CT scan of the abdomen and pelvis without contrast to look for any kidney stones. ) Departure - Departure Disposition: 01 Home, Self Care Clinical Impression: Chronic abdominal pain Abdominal pain Qualifiers: Abdominal location: unspecified location Qualified Code(s): R10.9 - Unspecified abdominal pain Condition: Good Instructions: ED Abdominal Pain Unkn Cause Follow-Up: Naseem Fajardo MD [Primary Care Provider] - Tomorrow
[2019-12-01] MEDS ORDERED: DICYCLOMINE 10 MG CAPSULE PO STA (00:23)
[2019-12-01] MEDS ORDERED: MORPHINE 2 MG/ML CARPUJECT IVP STA (00:24)
[2019-12-01] MEDS ORDERED: SODIUM CHLORIDE 0.9% 1,000 ML IV ONE (00:24)
[2019-12-01] MEDS ORDERED: ONDANSETRON 4 MG/2 ML VIAL IVP STA (00:24)
[2019-12-01 00:39] LABS: BILIRUBIN,URINE NEGATIVE (NEGATIVE); GLUCOSE, URINE (UA) NEGATIVE (NEGATIVE); KETONES,URINE (UA) NEGATIVE (NEGATIVE); LEUKOCYTE ESTERASE, URINE NEGATIVE (NEGATIVE); NITRITE,URINE NEGATIVE (NEGATIVE); OCCULT BLOOD,URINE LARGE (NEGATIVE); PH,URINE 5.5 PH (5.0-7.5); PROTEIN,URINE NEGATIVE (NEGATIVE); UROBILINOGEN,URINE 0.2 (NORMAL) E.U./dL (NORMAL)
[2019-12-01 00:41] LABS: CLARITY,URINE CLEAR (CLEAR)
[2019-12-01 00:41] LABS: BASOPHILS # (AUTO) 0.1 10^3/uL (0.0-0.1); BASOPHILS % (AUTO) 0.8 %; EOSINOPHILS # (AUTO) 0.1 10^3/uL (0.0-0.7); EOSINOPHILS % (AUTO) 0.7 %; LYMPHOCYTES # (AUTO) 3.9 10^3/uL (1.5-3.5); LYMPHOCYTES % (AUTO) 28.1 %; MEAN CORPUSCULAR HEMOGLOBIN 30.4 pg (27.0-31.0); MEAN CORPUSCULAR HGB CONC 34.4 g/dL (32.0-36.0); MEAN CORPUSCULAR VOLUME 88.5 fL (81.0-99.0); MEAN PLATELET VOLUME 8.6 fL (7.9-10.8); MONOCYTES # (AUTO) 0.9 10^3/uL (0.0-1.0); MONOCYTES % (AUTO) 6.7 %; NEUTROPHILS # (AUTO) 8.7 10^3/uL (1.5-6.6); PLT - PLATELET COUNT 414 10^3/uL (130-450); RED BLOOD COUNT 4.27 10^6/uL (4.20-5.40); RED CELL DISTRIBUTION WIDTH 12.9 % (12.0-15.0); WHITE BLOOD COUNT 13.8 x10^3/uL (4.8-10.8)
[2019-12-01 00:42] LABS: HCG UR QUAL NEGATIVE
[2019-12-01 00:44] LABS: BACTERIA,URINE Rare /HPF (None Seen); SQUAMOUS EPITHELIAL CELL,UR MOD Squamous (<= Few)
[2019-12-01 00:52] LABS: ALBUMIN 3.9 g/dL (3.2-5.5); ALBUMIN/GLOBULIN RATIO 1.1 (1.0-2.2); BILIRUBIN,TOTAL 0.5 mg/dL (0.2-1.0); CALCIUM 9.2 mg/dL (8.5-10.3); CREATININE 0.9 mg/dL (0.4-1.0); TOTAL PROTEIN 7.4 g/dL (6.7-8.2)
[2019-12-01] MEDS ORDERED: KETOROLAC 30 MG/ML VIAL IVP STA (00:58)
--- NOTE | 2019-12-01 02:16 | CT Report ---
Reason: right flank pain Procedure Date: 12/01/2019 Accession Number: [id number] / [id number] Procedure: CT - Abdomen/Pelvis WO CPT Code: Final Report FULL RESULT: EXAM: CT ABDOMEN AND PELVIS EXAM DATE:12/01/2019 01:53 AM CLINICAL HISTORY: Right flank pain. COMPARISONS: ABDOMEN/PELVIS W/ 10/05/2019 12:26 AM. TECHNIQUE: Routine helical CT imaging was performed through the abdomen and pelvis without IV contrast or oral contrast. Reconstructions: Coronal and sagittal. In accordance with CT protocol optimization, one or more of the following dose reduction techniques were utilized for this exam: automated exposure control, adjustment of mA and/or KV based on patient size, or use of iterative reconstructive technique. FINDINGS: Lung Bases: Unremarkable. Liver: Unremarkable. Gallbladder/Bile Ducts: Unremarkable. Spleen: Unremarkable. Pancreas: Unremarkable. Adrenal Glands: Unremarkable. Kidneys: Unremarkable. Peritoneal Cavity/Bowel: Colonic diverticula. Otherwise, the bowel is normal in caliber and contour. Postsurgical changes at the base of the cecum likely reflect prior appendectomy. Pelvic Organs: Unremarkable. Vasculature: Unremarkable. Bones: Unremarkable. Other: None. IMPRESSION: No acute process in the abdomen or pelvis. Colonic diverticulosis. Status post appendectomy. RADIA
[2019-12-01 02:42] VITALS: BP 115/79
== END 2019-12-01 02:55 | disposition home or self-care (01) ==
LOC: ED 23:01
DX: G89.29 Other chronic pain (principal); R10.9 Unspecified abdominal pain; N80.9 Endometriosis, unspecified; F41.9 Anxiety disorder, unspecified
CPT/HCPCS: 36415; 74176; 80053; 81001; 81025; 83690; 85025; 96361; 96374; 96375; 99284; 99285; A9270; 81003; 87086